=== PATIENT | female | born 1960 | race Caucasian/White ===

== ENCOUNTER 2017-02-06 10:15 | Inpatient (IN) | payer MEDICAID, OTHER ==
[2017-02-06] VITALS (8 sets, daily range): BP systolic 154–181; BP diastolic 82–110; PULSE 80–102; RESP 18–20; TEMP 98–99.2; O2SAT 90–99
[~2017-02-06] VITALS: Ht 157.5 cm; Wt 100.0 kg
[~2017-02-06 10:15] MED LIST: ADVAI250I INH; ALPR.25 PO; ASPI81 CHEW; ATRO17AE INH; CARV12.5 PO; Calcium Carbonate CHEW; FURO20 PO; KCL20 PO; LISI20 PO; LORTA5 PO; METF500 PO; MONT10TA2 PO; NEUR300C PO; PRAV40 PO; PRIL20CA PO; SPIR25 PO; Z.0.OXYGEN INH; flovent diskus INH
[2017-02-06] MEDS ORDERED: LEVOFLOXACIN 750 MG PREMIX INJ 150 ML IV ONE (10:30)
[2017-02-06] MEDS ORDERED: methylPREDNISolone SOD SUCC 125 MG/2 ML VIAL IVP ONE (10:30)
[2017-02-06] MEDS ORDERED: SODIUM CHLORIDE 0.9% FLUSH 10 ML FLUSH IVF PRN (10:30)
[2017-02-06] MEDS: RESP: ALBUTEROL 2.5 MG/IPRATROPIUM 0.5 MG NEB (SCH) INH ×4 (10:43→20:41)
[2017-02-06 10:56] LABS: AUTOMATED NEUTROPHIL # 7.3 TH/MM3 (1.8-7.7); BASOPHIL % 0.4 % (0.0-2.0); EOSINOPHIL # 0.1 TH/MM3 (0-0.4); EOSINOPHIL % 0.6 % (0.0-4.0); HEMATOCRIT 46.1 % (35.0-46.0); HEMO FLAGS DIFF FINAL; LYMPH % 19.2 % (9.0-44.0); LYMPHOCYTE # 1.9 TH/MM3 (1.0-4.8); MEAN CELL VOLUME 91.5 FL (80.0-100.0); MEAN CORPUSCULAR HEMOGLOBIN 30.8 PG (27.0-34.0); MEAN CORPUSCULAR HGB CONC 33.7 % (32.0-36.0); MONO % 6.1 % (0.0-8.0); NEUT % 73.7 % (16.0-70.0); PLATELET COUNT 218 TH/MM3 (150-450); RED BLOOD COUNT 5.04 MIL/MM3 (4.00-5.30); RED CELL DISTRIBUTION WIDTH 15.3 % (11.6-17.2); WHITE BLOOD COUNT 9.9 TH/MM3 (4.0-11.0)
--- NOTE | 2017-02-06 11:09 | RADRPT ---
EXAM DATE/TIME: 02/06/2017 11:04 [facility] COMPARISON: CHEST SINGLE AP, December 19, 2013, 14:08. INDICATIONS : Short of breath. MEDICAL HISTORY : asthma SURGICAL HISTORY : None. ENCOUNTER: Initial ACUITY: 1 day PAIN SCORE: 0/10 LOCATION: Bilateral chest FINDINGS: Cardiac silhouette is enlarged. Pulmonary vascularity is slightly indistinct. No significant new foca l pleural or parenchymal opacities. Remainder of exam is unchanged. CONCLUSION: 1. Cardiomegaly with slight positive fluid balance. Giles Palmer MD on February 06, 2017 at 11:07 Board Certified Radiologist. This report was verified electronically.
[2017-02-06 11:18] LABS: ALKALINE PHOSPHATASE 113 U/L (45-117); TOTAL BILIRUBIN ADULT 0.7 MG/DL (0.2-1.0)
[2017-02-06] MEDS ORDERED: FUROSEMIDE 40 MG/4 ML VIAL IV PUSH ONE (11:30)
[2017-02-06 11:45] LABS: ALT (GPT) 40 U/L (10-53); ANION GAP 8 MEQ/L (5-15); AST (GOT) 28 U/L (15-37); BICARBONATE 25.7 MEQ/L (21.0-32.0); BLOOD UREA NITROGEN 19 MG/DL (7-18); CHLORIDE 103 MEQ/L (98-107); GLOMERULAR FILTRATION RATE 74 ML/MIN (>89); POTASSIUM 4.5 MEQ/L (3.5-5.1); SODIUM (NA) 137 MEQ/L (136-145)
--- NOTE | 2017-02-06 11:47 | PD ---
HPI Chief Complaint: Respiratory Distress Time Seen by Provider: 10:25 Travel History International Travel<30 days: No Contact w/Intl Traveler<30days: No Traveled to known affect area: No History of Present Illness HPI This is a 56-year-old female who has a history of COPD and congestive heart failure who presents to the emergency department with 1 week of increasing shortness of breath, orthopnea, productive cough with green and yellow sputum, and chest tightness that worsens when she lays flat and improved when she sits up. She says her chest tightness is intermittent and moderate severity. She's been using her bronchodilators at home but it's not helping. PFSH Past Medical History Arthritis: Yes Asthma: Yes Blood Disorders: No Anxiety: Yes Depression: No Heart Rhythm Problems: No Cancer: No Cardiac Catheterization: No Cardiovascular Problems: Yes High Cholesterol: Yes Chemotherapy: No Chest Pain: Yes Congestive Heart Failure: Yes (EF 20%) COPD: Yes Diabetes: Yes (TYPE 2 ) Patient Takes Glucophage: Yes (METFORMIN ) Diminished Hearing: No Endocrine: No Gastrointestinal Disorders: Yes (GERD) GERD: Yes Genitourinary: No Headaches: Yes Hypertension: Yes Immune Disorder: No Musculoskeletal: Yes Neurologic: Yes (MIGRAINES, SEIZURES) Psychiatric: Yes (BIPOLAR) Reproductive: No Respiratory: Yes Immunizations Current: No Migraines: Yes Radiation Therapy: No Seizures: Yes Thyroid Disease: No ?: Not Menopausal: Yes : 2 Para: 2 Tubal Ligation: Yes (1989) Past Surgical History Section: Yes Coronary Artery Bypass Graft: No Gynecologic Surgery: Yes (C SECTION X 2) Other Surgery: Yes (2 C-SECTIONS, 2 ON LEFT ANKLE) Family History Family Myocardial Infarction: Yes (mom @ 51, dad @62, sister [place] @42) Social History Alcohol Use: Yes (OCC) Tobacco Use: Yes (05/30 PPD) Substance Use: Yes (MARAJUIANA ) Allergies-Medications (Allergen,Severity, Reaction): Coded Allergies: azithromycin (Unverified Allergy, Severe, RASH, 01/11/17) divalproex sodium (Unverified Allergy, Severe, SWELLS UP, 01/11/17) *MDRO Multi-Drug Resistant Organism (Unverified Adverse Reaction, Unknown , 09/01/14) Reported Meds & Prescriptions Reported Meds & Active Scripts Active Oxygen (O2) (Miscellaneous Medication) Inha 2 L INH CONTINUOUS 99 Days Lasix 20 Mg Tab (Furosemide) 20 Mg Tab 40 Mg PO DAILY Atrovent Hfa (Ipratropium [place]) 17 Mcg Aer 2 Puff INH Q8H PRN 30 Days 17 MCG/PUFF Aldactone 25 mg (Spironolactone) 25 Mg Tab 25 Mg PO DAILY Kcl 20 Meq Tab (Potassium Chloride) 20 Meq Tabcr 20 Meq PO DAILY Hydrocodone/Acetaminophen 5 mg/325 mg 1 Tab Tab 1 Tab PO BID PRN Advair Diskus 250/50 (Salmeterol Xinafoate/Fluticasone) 14 Puff Inhp 1 Puff INH Q12 30 Days Coreg 12.5 mg (Carvedilol) 12.5 Mg Tab 12.5 Mg PO BID Aspirin Low Strength (Aspirin) 81 Mg Chew 81 Mg CHEW DAILY Xanax 0.25 Mg (Alprazolam) Alprazolam 0.25 mg Tab 1 Tab PO BID Glucophage 500 mg (Metformin HCl) 500 Mg Tab 500 Mg PO DAILY 30 Days Pravastatin Sodium 40 Mg Tab 40 Mg PO HS Prinivil 20 mg (Lisinopril) 20 Mg Tab 40 Mg PO DAILY Singulair (Montelukast Sodium) 10 Mg Tab 10 Mg PO HS 30 Days Neurontin (Gabapentin) 300 Mg Cap 800 Mg PO TID 30 Days [Calcium Carbonate] 500 MG Chew 500 Mg CHEW Q4H PRN Reported Prilosec 20 mg (Omeprazole) 20 Mg Cap 20 Mg PO DAILY [flovent diskus] 250 Mcg INH DAILY Review of Systems Except as stated in HPI: all other systems reviewed are Neg Physical Exam Narrative GENERAL:Well appearing, no acute distress SKIN: Focused skin assessment warm and dry. HEAD: Atraumatic. Normocephalic. EYES: Pupils equal and round. No injection or drainage. ENT: Moist mucous membranes NECK: Trachea midline. CARDIOVASCULAR: Diffuse mild expiratory wheezing, no accessory muscle use, speaking in full sentences RESPIRATORY: Clear to auscultation. Breath sounds equal bilaterally. GASTROINTESTINAL: Abdomen soft, non-tender, nondistended. MUSCULOSKELETAL: No obvious deformities. NEUROLOGICAL: Awake and alert. No obvious cranial nerve deficits. Moving all extremities. PSYCHIATRIC: Appropriate mood and affect; insight and judgment normal. Data Data Last Documented VS Vital Signs Date Time Temp Pulse Resp B/P (MAP) Pulse Ox O2 Delivery O2 Flow Rate FiO2 02/06/17 10:44 95 Nasal Cannula 3.00 02/06/17 10:31 99.2 88 18 181/107 (131) Orders Orders Complete Blood Count With Diff (02/06/17 10:25) Comprehensive Metabolic Panel (02/06/17 10:25) B-Type Natriuretic Peptide (02/06/17 10:25) Troponin I (02/06/17 10:25) Iv Access Insert/Monitor (02/06/17 10:25) Ecg Monitoring (02/06/17 10:25) Oximetry (02/06/17 10:25) Oxygen Administration (02/06/17 10:25) Chest, Single Ap (02/06/17 10:25) Sodium Chloride 0.9% Flush (Ns Flush) (02/06/17 10:30) Methylprednisolone So Succ Inj (Solumedr (02/06/17 10:30) Albuterol-Ipratropium Neb (Duoneb Neb) (02/06/17 10:30) Levofloxacin 750 Mg Premix Inj (Levaquin (02/06/17 10:30) Furosemide Inj (Lasix Inj) (02/06/17 11:30) Labs Laboratory Tests Test 02/06/17 10:35 White Blood Count 9.9 TH/MM3 Red Blood Count 5.04 MIL/MM3 Hemoglobin 15.5 GM/DL Hematocrit 46.1 % Mean Corpuscular Volume 91.5 FL Mean Corpuscular Hemoglobin 30.8 PG Mean Corpuscular Hemoglobin Concent 33.7 % Red Cell Distribution Width 15.3 % Platelet Count 218 TH/MM3 Mean Platelet Volume 8.9 FL Neutrophils (%) (Auto) 73.7 % Lymphocytes (%) (Auto) 19.2 % Monocytes (%) (Auto) 6.1 % Eosinophils (%) (Auto) 0.6 % Basophils (%) (Auto) 0.4 % Neutrophils # (Auto) 7.3 TH/MM3 Lymphocytes # (Auto) 1.9 TH/MM3 Monocytes # (Auto) 0.6 TH/MM3 Eosinophils # (Auto) 0.1 TH/MM3 Basophils # (Auto) 0.0 TH/MM3 CBC Comment DIFF FINAL Differential Comment Total Protein 6.6 GM/DL Alkaline Phosphatase 113 U/L Total Bilirubin 0.7 MG/DL Troponin I 0.07 NG/ML B-Type Natriuretic Peptide 1034 PG/ML MDM Medical Decision Making Medical Screen Exam Complete: Yes Emergency Medical Condition: Yes Interpretation(s) Temperature is 99.2, 90% on room air No leukocytosis BNP is 1034 improved from prior Troponin is 0.07 which is newly elevated from prior Differential Diagnosis Pneumonia, congestive heart failure, COPD exacerbation Narrative Course This is a 56-year-old female who presents to the emergency department with shortness of breath it's been going on for 1 week. Her symptoms are more consistent with congestive heart failure and she's suffering from severe orthopnea and has chest discomfort. EKG is nonischemic. Labs are obtained which demonstrate an elevated BNP slightly improved from prior but a newly elevated troponin of 0.07. Given her active chest pain and some pulmonary congestion on chest x-ray and her hypoxia 90% on room air I think it's reasonable to observe her overnight for diuresis and serial troponins. Diagnosis Primary Impression: Acute exacerbation of congestive heart failure Qualified Codes: I50.9 - Heart failure, unspecified Admitting Information Admitting Physician Requests: Observation Lydia Ott MD Feb 06, 2017 11:47
[2017-02-06] MEDS ORDERED: POTA-163 PO (12:29)
[2017-02-06] MEDS ORDERED: PRIL20TA2 PO (12:29)
[2017-02-06] MEDS ORDERED: GABA800T PO (12:29)
[2017-02-06] MEDS ORDERED: CARV12.52 PO (12:29)
[2017-02-06] MEDS ORDERED: METF500T PO (12:29)
[2017-02-06] MEDS ORDERED: MONT10TA2 PO (12:29)
[2017-02-06] MEDS ORDERED: FURO1TAB60 PO (12:29)
[2017-02-06] MEDS ORDERED: IPRA17I INH (12:29)
[2017-02-06] MEDS ORDERED: ASPI81CH CHEW (12:29)
[2017-02-06] MEDS ORDERED: LISI40TA PO (12:29)
[2017-02-06] MEDS ORDERED: PRAV40TA2 PO (12:29)
[2017-02-06] MEDS ORDERED: ALPR.25 PO (12:29)
[2017-02-06] MEDS ORDERED: ADVA250A INH (12:29)
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
[2017-02-06] MEDS ORDERED: SODIUM CHLORIDE 0.9% FLUSH 10 ML FLUSH IV FLUSH PRN (13:30)
[2017-02-06] MEDS ORDERED: MAGNESIUM HYDROXIDE SUSP 30 ML CUP PO PRN (13:30)
[2017-02-06] MEDS ORDERED: SENNOSIDES 8.6 MG TAB PO PRN (13:30)
[2017-02-06] MEDS ORDERED: NALOXONE HCL 0.4 MG/ML AMP IV PRN (13:30)
[2017-02-06] MEDS ORDERED: LACTULOSE SYRUP 20 GM/30 ML CUP PO PRN (13:30)
[2017-02-06] MEDS ORDERED: ONDANSETRON HCL 4 MG/2 ML VIAL IVP PRN (13:30)
[2017-02-06] MEDS ORDERED: ACETAMINOPHEN 325 MG TAB PO PRN ×2 (13:30→14:45)
[2017-02-06] MEDS ORDERED: BISACODYL 10 MG SUPP RECTAL PRN (13:30)
[2017-02-06] MEDS ORDERED: GLUCAGON 1 MG/ML VIAL OTHER PRN (13:45)
[2017-02-06] MEDS ORDERED: RESP: ALBUTEROL 2.5 MG/3 ML NEB (PRN) INH (13:45)
[2017-02-06] MEDS ORDERED: DEXTROSE 50% IN WATER 50 ML VIAL(D50) IV PRN (13:45)
[2017-02-06] MEDS ORDERED: ALPRAZolam 0.25 MG TAB PO PRN (14:00)
[2017-02-06] MEDS ORDERED: cloNIDine HCL 0.1 MG TAB PO PRN (14:00)
[2017-02-06] MEDS ORDERED: ENALAPRILAT 1.25 MG/ML VIAL IV PUSH PRN (14:00)
[2017-02-06] MEDS: NICOTINE 21 MG/24 HR PATCH TD SCH (14:42)
[2017-02-06] MEDS ORDERED: ACETAMINOPHEN/HYDROcodone 325 MG/5 MG TAB PO PRN (14:45)
[2017-02-06] MEDS: INSULIN ASPART SUPPLEMENTAL SCALE SQ SCH ×2 (16:50→21:24)
[2017-02-06] MEDS ORDERED: FUROSEMIDE 20 MG/2 ML VIAL IV PUSH ONE (17:00)
[2017-02-06] MEDS ORDERED: GABAPENTIN 400 MG CAP PO SCH (18:00)
[2017-02-06] MEDS: REMOVE OLD NICODERM (NICOTINE) PATCH T-DERMAL SCH (21:00)
[2017-02-06] MEDS: DOCUSATE SODIUM 50 MG/SENNA 8.6 MG TAB PO SCH (21:25)
[2017-02-06] MEDS: SODIUM CHLORIDE 0.9% FLUSH 10 ML FLUSH IV FLUSH SCH (21:25)
[2017-02-06] MEDS: ENOXAPARIN SODIUM 40 MG/0.4 ML SYRINGE SQ SCH (21:25)
[2017-02-06 23:17] LABS: BICARBONATE 29.1 MEQ/L (21.0-32.0); POTASSIUM 3.9 MEQ/L (3.5-5.1)
[2017-02-07] VITALS (13 sets, daily range): BP systolic 126–178; BP diastolic 64–96; PULSE 74–92; RESP 18–24; TEMP 98.1–98.6; O2SAT 85–95
[2017-02-07] MEDS ORDERED: cloNIDine HCL 0.2 MG TAB PO PRN (02:00)
[2017-02-07] MEDS: RESP: ALBUTEROL 2.5 MG/IPRATROPIUM 0.5 MG NEB (SCH) INH ×4 (02:50→20:34)
--- NOTE | 2017-02-07 05:37 | RADRPT ---
EXAM DATE/TIME: 02/07/2017 05:09 [facility] COMPARISON: CHEST SINGLE AP, February 06, 2017, 11:04. INDICATIONS : Short of breath. MEDICAL HISTORY : Asthma. SURGICAL HISTORY : None. ENCOUNTER: Subsequent ACUITY: 2 days PAIN SCORE: 0/10 LOCATION: Bilateral chest FINDINGS: A single view of the chest demonstrates cardiomegaly. Linear atelectasis scarring left lung. Calcifie d granuloma left base. Right lung clear. No pneumothorax. CONCLUSION: 1. Cardiomegaly. Calcified granuloma left base. Linear atelectasis or scarring left hilar region. Galileo Pagan MD on February 07, 2017 at 5:35 Board Certified Radiologist. This report was verified electronically.
[2017-02-07] MEDS: INSULIN ASPART SUPPLEMENTAL SCALE SQ SCH ×4 (06:44→22:58)
--- NOTE | 2017-02-07 08:08 | HHI.FPPN ---
Subjective Remarks Sasha Lee is a 56yo lady with h/o systolic CHF, asthma, and bipolar disorder admitted for SOB and chest discomfort, worsening x 1 week. Also associated with lower extremity edema x 3 days. 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 For further details, please see resident H&P. This morning, patient reports that her breathing has improved. She continues to require Oxygen supplementation by nasal cannula, and has a desaturation to 87% on room air, which improved to 90-91% with 2lpm. ROS: + SOB, improving. Chest pain has resolved. No nausea/vomiting. + edema of lower extremities, although improved. No fevers. All other systems reviewed are negative. PMH/PSxH/SocHx/FamHx: Per resident H&P. Significant for: CHF with 08/2014 echo EF 10-15%; asthma/COPD, type II DM, HTN, dyslipidemia, bipolar disorder, seizure disorder. x 2; 2 left ankle surgeries. Mother with sudden cardiac at 50yo; sister with sudden cardiac at 42yo. Smokes 1PPD tobacco. Rare alcohol. Last cocaine use 2 days ago. 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 Objective Vitals Vital Signs Date Time Temp Pulse Resp B/P (MAP) Pulse Ox O2 Delivery O2 Flow Rate FiO2 02/07/17 07:57 81 02/07/17 07:51 98.1 84 18 178/75 (109) 93 02/07/17 03:22 98.1 92 19 178/80 (112) 93 02/06/17 23:47 98.0 82 19 154/82 (106) 93 02/06/17 20:43 Nasal Cannula 2.00 02/06/17 19:24 98.0 87 18 179/97 (124) 93 02/06/17 18:28 102 02/06/17 15:47 02/06/17 15:20 90 18 164/84 (110) 99 Room Air 02/06/17 12:00 80 20 178/110 (132) 97 Room Air 02/06/17 10:44 95 Nasal Cannula 3.00 02/06/17 10:32 92 Nasal Cannula 2.00 02/06/17 10:31 99.2 88 18 181/107 (131) 90 Room Air 02/06/17 10:28 18 18 Room Air 02/06/17 10:28 90 Room Air 02/06/17 10:19 99.2 18 I/O 02/06/17 02/06/17 02/06/17 02/07/17 02/07/17 02/07/17 07:00 15:00 23:00 07:00 15:00 23:00 Intake Total 150 ml Balance 150 ml Intake IV Total 150 ml Result Diagram: 02/06/17 1035 02/06/17 2229 Objective Remarks GENERAL: in NAD, no resp distress, nontoxic. Talks in complete sentences. Cough throughout exam/interview HEENT: NCAT, EOMI, no scleral icterus, no conjunctival injection. MMM. Nasal cannula in place. NECK: Supple, no carotid bruits. No meningeal signs. No obvious JVD. CV: RRR, S1 S2. No murmurs. CHEST/PULM: CTAB, no crackles, no wheezes. Prolonged exp phase. ABD/GI: +BS, soft, nontender, nondistended. EXT: 2+ DP pulses. Trace pitting edema to mid coello. No calf tenderness. : No CVAT. NEURO: Awake, alert. Normal muscle tone. Grossly nonfocal. SKIN: No rashes, no jaundice. PSYCH: Mood and affect are appropriate. Speech fluent. Does not appear to respond to internal stimuli. A/P Assessment and Plan Mrs. Lee is a 56 yo F with PMH of asthma, CHF, bipolar disorder who presents with symptoms of shortness of breath and chest discomfort Discharge Planning Anticipate discharge in 1-2 days, once able to maintain O2 sats on room air. Attending Attestation Patient seen, examined, and discussed with resident team. The patient has been seen and examined. The chart and all resident notes have been reviewed. I agree that inpatient care is appropriate and that a two midnight stay is expected for the reasons documented in the resident history and physical. I have discussed this with the resident and certify the resident s order for inpatient admission. Problem List: (1) CHF (congestive heart failure) ICD Codes: I50.9 - Heart failure, unspecified Status: Chronic Plan: Acute on chronic systolic CHF exacerbation. Likely secondary to cocaine use and nonadherence (ran out of medication). Last Echocardiogram in EMR 08/2016: Systolic function severely reduced per visual assessment. Estimated EF 10-15 percent with diffuse hypokinesis. Parameters consistent with reversible restrictive pattern suggestive of decreased LV diastolic compliance or increased L atrial pressure. Mild mitral regurgitation. PA peak 31mmHg -Will recheck echo -Appreciate cardiology recommendations, who recommend ischemic work up as an outpatient. -Continue diuresis -s/p Lasix 40mg IV in ED -40mg IV Lasix daily -Continue Lisinopril 40mg daily -Continue Carvedilol 12.5mg daily -Monitor Is/Os. -Check lipid profile. (2) Troponin level elevated ICD Codes: R74.8 - Abnormal levels of other serum enzymes Status: Chronic Plan: Likely secondary to Chronic CHF. EKG reviewed; suggestive of LVH with nonspecific T wave changes; no change from prior EKG -s/p ASA in ED -Continue patient's home KAEL, BB -Check lipid profile. (3) Shortness of breath ICD Codes: R06.02 - Shortness of breath Status: Acute Plan: Improving. Suspect secondary to CHF exacerbation in combination with COPD exacerbation. CXR on admission suggestive of cardiomegaly with slight positive fluid balance Treat CHF exacerbation as above. COPD exacerbation treatment as follows: -Steroid therapy -s/p Solumedrol 125mg in ED -Will start Prednisone 40mg daily x5 days -Antibiotic therapy -s/p Levofloxacin 750mg in ED -Will continue Levofloxacin 750mg daily for total of 5 days -Will continue to monitor O2 sats. Pt continues to require oxygen supplementation. -Will give Albuterol, Duonebs -Will check sputum culture -Continue home medications: Singulair. On Advair, Atrovent, when necessary albuterol, and montelukast at home. Incentive spirometer, Acapella. Encouraged smoking cessation; pt in precontemplative state of change. Discussed cessation of recreational drugs and that cocaine contributes to worsening of her cardiac function. (4) COPD (chronic obstructive pulmonary disease) ICD Codes: J44.9 - Chronic obstructive pulmonary disease, unspecified Status: Chronic Plan: Management as per Shortness of Breath section above. (5) T2DM (type 2 diabetes mellitus) ICD Codes: E11.9 - Type 2 diabetes mellitus without complications Status: Chronic Plan: Impression: Patient with history of A1c 6.6 in 08/2014. Patient reports that she takes metformin 500 mg daily, suspect poor compliance -Will continue SS Novolog (low dose) and Accuchecks while inpatient -Check a1c. (6) HTN (hypertension) ICD Codes: I10 - Essential (primary) hypertension Status: Chronic Plan: Impression: Hypertensive on admission with SBP and 170s-180s. Improved overnight. -Continue lisinopril 40 mg daily -Continue Carvedilol 12.5 mg daily (7) Cocaine abuse ICD Codes: F14.10 - Cocaine abuse, uncomplicated Status: Chronic Plan: Encouraged cessation from cocaine and tobacco. Discussed how these substances contribute to her cardiac issues. (8) Acute renal failure ICD Codes: N17.9 - Acute kidney failure, unspecified Status: Acute Plan: Likely secondary to medication use with Lasix. Monitor urine output, blood work. (9) DVT PPX Status: Chronic Plan: -Lovenox 40mg daily (10) GI PPX Status: Chronic Plan: -Continue home Omeprazole (for GERD) for GI PPX Problem Qualifiers (1) CHF (congestive heart failure): Qualified Codes: I50.23 - Acute on chronic systolic (congestive) heart failure (2) COPD (chronic obstructive pulmonary disease): Qualified Codes: J41.0 - Simple chronic bronchitis (3) T2DM (type 2 diabetes mellitus): Qualified Codes: E11.9 - Type 2 diabetes mellitus without complications (4) HTN (hypertension): Qualified Codes: I10 - Essential (primary) hypertension (5) Acute renal failure: Qualified Codes: N17.0 - Acute kidney failure with tubular necrosis Abena Recinos MD Feb 07, 2017 08:08
[2017-02-07] MEDS: NICOTINE 21 MG/24 HR PATCH TD SCH (08:56)
[2017-02-07] MEDS: ASPIRIN 81 MG CHEW TAB CHEW SCH (08:57)
[2017-02-07] MEDS: PRAVASTATIN SOD 40 MG TAB PO SCH (08:57)
[2017-02-07] MEDS: LISINOPRIL 20 MG TAB PO SCH (08:57)
[2017-02-07] MEDS: MONTELUKAST SODIUM 10 MG TAB PO SCH (08:57)
[2017-02-07] MEDS: predniSONE 20 MG TAB PO SCH (08:58)
[2017-02-07] MEDS: guaiFENesin E.R. 600 MG TAB PO SCH ×2 (08:58→22:47)
[2017-02-07] MEDS: LEVOFLOXACIN 750 MG TAB PO SCH (08:59)
[2017-02-07] MEDS: PANTOPRAZOLE SOD 20 MG DELAYED RELEASE TAB PO SCH (09:00)
[2017-02-07] MEDS: CARVEDILOL 12.5 MG TAB PO SCH (09:00)
[2017-02-07] MEDS: DOCUSATE SODIUM 50 MG/SENNA 8.6 MG TAB PO SCH ×2 (09:00→22:47)
[2017-02-07] MEDS: FUROSEMIDE 40 MG/4 ML VIAL IV PUSH SCH (09:01)
[2017-02-07] MEDS: SODIUM CHLORIDE 0.9% FLUSH 10 ML FLUSH IV FLUSH SCH ×2 (09:01→22:47)
[2017-02-07] MEDS: GABAPENTIN 300 MG CAP PO SCH ×2 (09:02→22:47)
--- NOTE | 2017-02-07 09:11 | PD.CONS ---
HPI Service Cardiology physicians Consult Requested By Reason for Consult Elevated troponin, CHF Primary Care Physician Unknown History of Present Illness The patient is a 56 year old female with a cardiac history of cardiomyopathy, chronic systolic CHF, HTN, non occlusive CAD, tobacco abuse and obesity. The patient presented to the hospital for a one week history of progressively worsening SOB, orthopnea, palpitations, productive cough and chest tightness. She admits to running out of medications, as she is not able to afford them. On evaluation, she states she is feeling better. Cardiac workup reveals elevated BNP, hypoxia on room air, EKG negative for ischemic changes, troponin slightly elevated due to CHF exacerbation and renal insufficiency. Of note, toxicology screen in positive for cocaine. (Paulina Alston) Review of Systems Consitutional: COMPLAINS OF: Weight gain, DENIES: Fatigue, Fever, Chills Eyes: DENIES: Amaurosis Fugax, Change in vision HEENT: DENIES: Lightheadedness, Change in hearing Respiratory: COMPLAINS OF: Cough, Shortness of breath, Wheezing, Sputum production, DENIES: See HPI, Snoring Cardiovascular: COMPLAINS OF: Chest pain, Palpitations, Tachycardia, DENIES: See HPI, Syncope Gastrointestinal: DENIES: Nausea, Vomiting, Change in bowel habits, Reflux, Bloody stools, Melena Genitourinary: DENIES: Urinary incontinence, Difficulty voiding Integumentary: DENIES: Rash Neurologic: DENIES: Tingling or numbness, Memory problems, Poor Balance, Stroke symptoms Musculoskeletal: DENIES: Joint pain, Muscle pain, Limited range of motion, Back pain Psychiatric: DENIES: Anxiety, Depression, Sleep disturbances Hematologic: DENIES: Bruising tendencies, Bleeding tendencies Endocrine: COMPLAINS OF: Weight gain, DENIES: Weight loss, Thyroid disease ( Paulina Alston) Past Family Social History Allergies: Coded Allergies: azithromycin (Unverified Allergy, Severe, RASH, 01/11/17) divalproex sodium (Unverified Allergy, Severe, SWELLS UP, 01/11/17) *MDRO Multi-Drug Resistant Organism (Unverified Adverse Reaction, Unknown , 09/01/14) Past Medical History Cardiomyopathy Chronic systolic CHF HTN Non occlusive ASHD Obesity SOB Tobacco abuse Drug dependent, toxicology screen positive for cocaine Past Surgical History Cardiac cath 2012-% stenosis of LAD, otherwise unremarkable Cesarian section X 2 Reported Medications Reported Meds & Active Scripts Active Reported Pravastatin 40 Mg Tab 40 Mg PO DAILY Potassium Chloride ER (Potassium Chloride) 20 Meq Tab 20 Meq PO DAILY Prilosec (Omeprazole Magnesium) 20 Mg Tab 1 Tab PO DAILY Singulair (Montelukast Sodium) 10 Mg Tab 10 Mg PO DAILY Metformin (Metformin HCl) 500 Mg Tab 500 Mg PO DAILY With a meal Lisinopril 40 Mg Tab 40 Mg PO DAILY Atrovent HFA 12.9 GM Inh (Ipratropium [place]) 17 Mcg/Actuation Aer 2 Puff INH BID Gabapentin 800 Mg Tab 800 Mg PO TID Lasix (Furosemide) 40 Mg Tab 40 Mg PO DAILY Advair Diskus Inh (Fluticasone-Salmeterol Inh) 250-50 Mcg/Blist Aer 1 Puff INH BID Rinse mouth after use. Carvedilol 12.5 Mg Tab 12.5 Mg PO DAILY Xanax (Alprazolam) 0.25 Mg Tab 0.25 Mg PO DAILY PRN Aspirin 81 Mg Chew 81 Mg CHEW DAILY Active Ordered Medications Current Medications Medications (Trade) Dose Ordered Sig/Jose Route Start Time Stop Time Status Last Admin (Vasotec Inj) 1.25 mg Q8H PRN IV PUSH 02/06/17 14:00 02/06/17 13:39 (NS Flush) 2 ml UNSCH PRN IV FLUSH 02/06/17 13:30 (NS Flush) 2 ml BID IV FLUSH 02/06/17 21:00 02/06/17 21:25 (Zofran Inj) 4 mg Q6H PRN IVP 02/06/17 13:30 (Lovenox Inj) 40 mg Q24H SQ 02/06/17 21:00 02/06/17 21:25 (Narcan Inj) 0.4 mg UNSCH PRN IV 02/06/17 13:30 (Angela-Colace) 1 tab BID PO 02/06/17 21:00 02/06/17 21:25 (Milk Of Magnesia Liq) 30 ml Q12H PRN PO 02/06/17 13:30 (Senokot) 17.2 mg Q12H PRN PO 02/06/17 13:30 (Dulcolax Supp) 10 mg DAILY PRN RECTAL 02/06/17 13:30 (Lactulose Liq) 30 ml DAILY PRN PO 02/06/17 13:30 (Deltasone) 40 mg DAILY PO 02/07/17 09:00 (Levaquin) 750 mg DAILY PO 02/07/17 09:00 (Duoneb Neb) 1 ampule Q6HR NEB INH 02/06/17 16:00 02/07/17 02:50 (Albuterol Neb) 2.5 mg Q2HR NEB PRN INH 02/06/17 13:45 (Habitrol 21 Mg Patch.24 Hr) 1 patch DAILY TD 02/06/17 14:00 02/06/17 14:42 (Lasix Inj) 40 mg DAILY IV PUSH 02/07/17 09:00 (D50w (Vial) Inj) 50 ml UNSCH PRN IV 02/06/17 13:45 (Glucagon Inj) 1 mg UNSCH PRN OTHER 02/06/17 13:45 (NovoLOG SUPPLEMENTAL SCALE) 1 ACHS SLIDING SCALE SQ 02/06/17 16:00 02/07/17 06:44 (Aspirin Chew) 81 mg DAILY CHEW 02/07/17 09:00 (Xanax) 0.25 mg DAILY PRN PO 02/06/17 14:00 (Coreg) 12.5 mg DAILY PO 02/07/17 09:00 (Singulair) 10 mg DAILY PO 02/07/17 09:00 (Pravachol) 40 mg DAILY PO 02/07/17 09:00 (Prinivil) 40 mg DAILY PO 02/07/17 09:00 (Protonix) 20 mg DAILY PO 02/07/17 09:00 Miscellaneous Information 1 HS T-DERMAL 02/06/17 21:00 02/06/17 21:00 (Tylenol) 650 mg Q6H PRN PO 02/06/17 14:45 (Foster 5-325 Mg) 1 tab Q6H PRN PO 02/06/17 14:45 (Catapres) 0.2 mg Q6H PRN PO 02/07/17 02:00 (Neurontin) 600 mg Q12H PO 02/07/17 09:00 (Mucinex Er) 600 mg BID PO 02/07/17 09:00 Family History Sister [place] 42 Social History Tobacco use Toxicology screen + cocaine (Paulina Alston) Physical Exam Vital Signs Vital Signs Date Time Temp Pulse Resp B/P (MAP) Pulse Ox O2 Delivery O2 Flow Rate FiO2 02/07/17 07:57 81 02/07/17 07:51 98.1 84 18 178/75 (109) 93 02/07/17 03:22 98.1 92 19 178/80 (112) 93 02/06/17 23:47 98.0 82 19 154/82 (106) 93 02/06/17 20:43 Nasal Cannula 2.00 02/06/17 19:24 98.0 87 18 179/97 (124) 93 02/06/17 18:28 102 02/06/17 15:47 02/06/17 15:20 90 18 164/84 (110) 99 Room Air 02/06/17 12:00 80 20 178/110 (132) 97 Room Air 02/06/17 10:44 95 Nasal Cannula 3.00 02/06/17 10:32 92 Nasal Cannula 2.00 02/06/17 10:31 99.2 88 18 181/107 (131) 90 Room Air 02/06/17 10:28 18 18 Room Air 02/06/17 10:28 90 Room Air 02/06/17 10:19 99.2 18 Physical Exam GENERAL: Obese, teary, middle age female SKIN: Warm and dry. HEAD: Atraumatic. Normocephalic. EYES: Pupils equal and round. No scleral icterus. No injection or drainage. ENT: No nasal bleeding or discharge. NECK: Trachea midline. Cardiovascular: Regular rate and rhythm. RESPIRATORY: No accessory muscle use. Bilateral wheezing, no rales or rhonchi, nasal cannula GASTROINTESTINAL: Abdomen soft, non-tender, nondistended MUSCULOSKELETAL: Extremities without clubbing, cyanosis. pretibial edema NEUROLOGICAL: Awake and alert. No obvious cranial nerve deficits. Motor grossly within normal limits. Five out of 5 muscle strength in the arms and legs. Normal speech. PSYCHIATRIC: Appropriate mood and affect; insight and judgment normal. Laboratory Laboratory Tests Test 02/06/17 10:35 02/06/17 15:14 02/06/17 16:34 02/06/17 22:29 White Blood Count 9.9 Red Blood Count 5.04 Hemoglobin 15.5 Hematocrit 46.1 Mean Corpuscular Volume 91.5 Mean Corpuscular Hemoglobin 30.8 Mean Corpuscular Hemoglobin Concent 33.7 Red Cell Distribution Width 15.3 Platelet Count 218 Mean Platelet Volume 8.9 Neutrophils (%) (Auto) 73.7 Lymphocytes (%) (Auto) 19.2 Monocytes (%) (Auto) 6.1 Eosinophils (%) (Auto) 0.6 Basophils (%) (Auto) 0.4 Neutrophils # (Auto) 7.3 Lymphocytes # (Auto) 1.9 Monocytes # (Auto) 0.6 Eosinophils # (Auto) 0.1 Basophils # (Auto) 0.0 CBC Comment DIFF FINAL Differential Comment Blood Urea Nitrogen 19 26 Creatinine 0.80 1.29 Random Glucose 188 249 Total Protein 6.6 Albumin 3.1 Calcium Level 8.9 9.0 Alkaline Phosphatase 113 Aspartate Amino Transf (AST/SGOT) 28 Alanine Aminotransferase (ALT/SGPT) 40 Total Bilirubin 0.7 Sodium Level 137 136 Potassium Level 4.5 3.9 Chloride Level 103 98 Carbon Dioxide Level 25.7 29.1 Anion Gap 8 9 Estimat Glomerular Filtration Rate 74 43 Troponin I 0.07 0.04 0.03 B-Type Natriuretic Peptide 1034 Urine Opiates Screen NEG Urine Barbiturates Screen NEG Urine Amphetamines Screen NEG Urine Benzodiazepines Screen NEG Urine Cocaine Screen POS Urine Cannabinoids Screen NEG Total Creatine Kinase 59 55 Date/Time Source Procedure Growth Status 02/06/17 15:14 Sputum Expectorated Sputum Gram Stain Pending Received 02/06/17 15:14 Sputum Expectorated Sputum Sputum Culture Pending Received (Paulina Alston) Result Diagram: 02/06/17 1035 02/06/17 2229 Imaging Last 72 hours Impressions Chest X-Ray 02/07/17 0600 Signed Impressions: Service Date/Time: Tuesday, February 07, 2017 05:09 - CONCLUSION: 1. Cardiomegaly. Calcified granuloma left base. Linear atelectasis or scarring left hilar region. Galileo Pagan MD Chest X-Ray 02/06/17 1025 Signed Impressions: Service Date/Time: Monday, February 06, 2017 11:04 - CONCLUSION: 1. Cardiomegaly with slight positive fluid balance. Giles Palmer MD (Paulina Alston) Assessment and Plan Assessment and Plan Respiratory insufficiency due to acute on chronic systolic CHF exacerbation and suspect underlying COPD Slightly positive troponin due to CHF exacerbation HTN NIIDM Tobacco and drug dependence PLAN: Continue IV diuresis. Transition to PO soon. Resume home medications The patient will need ischemic work up outpatient Patient seen and evaluated by Dr Fisher who completed face to face encounter, did a physical exam and participated in evaluation and management. (Paulina Alston) Assessment and Plan The exam, history, and the medical decision-making described in the above note were completed with the assistance of the mid-level provider. I reviewed and agree with the findings presented. I attest that I had a [id number] encounter with the patient on the same day, and personally performed and documented my assessment and findings in the medical record. Poor candidate for aggressive procedures cocaine use , now in CHF, will treat chf and try to improve EF if pt can try to be more compliant (Lazarus Fisher MD) Paulina Alston Feb 07, 2017 09:11 Lazarus Fisher MD Feb 07, 2017 13:46
[2017-02-07 11:52] LABS: AUTOMATED NEUTROPHIL # 6.7 TH/MM3 (1.8-7.7); BASOPHIL % 0.2 % (0.0-2.0); EOSINOPHIL % 0.2 % (0.0-4.0); HEMATOCRIT 47.2 % (35.0-46.0); HEMO FLAGS DIFF FINAL; LYMPH % 17.7 % (9.0-44.0); LYMPHOCYTE # 1.6 TH/MM3 (1.0-4.8); MEAN CELL VOLUME 92.6 FL (80.0-100.0); MEAN CORPUSCULAR HEMOGLOBIN 30.5 PG (27.0-34.0); MEAN CORPUSCULAR HGB CONC 32.9 % (32.0-36.0); MONO % 8.1 % (0.0-8.0); NEUT % 73.8 % (16.0-70.0); PLATELET COUNT 242 TH/MM3 (150-450); RED CELL DISTRIBUTION WIDTH 14.5 % (11.6-17.2); WHITE BLOOD COUNT 9.1 TH/MM3 (4.0-11.0)
[2017-02-07 12:16] LABS: ANION GAP 7 MEQ/L (5-15); AST (GOT) 21 U/L (15-37); BICARBONATE 34.9 MEQ/L (21.0-32.0); BLOOD UREA NITROGEN 24 MG/DL (7-18); CHLORIDE 95 MEQ/L (98-107); GLOMERULAR FILTRATION RATE 58 ML/MIN (>89); POTASSIUM 3.3 MEQ/L (3.5-5.1); SODIUM (NA) 137 MEQ/L (136-145)
[2017-02-07 12:17] LABS: ALT (GPT) 37 U/L (10-53)
[2017-02-07 12:19] LABS: ALKALINE PHOSPHATASE 105 U/L (45-117); TOTAL BILIRUBIN ADULT 0.5 MG/DL (0.2-1.0)
[2017-02-07 13:05] LABS: HDL CHOLESTEROL 62.1 MG/DL (40.0-60.0); LDL CHOLESTEROL 139 MG/DL (0-99)
--- NOTE | 2017-02-07 13:57 | EKG ---
Date Performed: 02/06/2017 Time Performed: 10:32:17 PTAGE: 56 years EKG: Sinus rhythm RIGHT ATRIAL ENLARGEMENT LEFT ATRIAL ENLARGEMENT POSSIBLE LEFT VENTRICULAR HYPERTROPHY Compared to p rior tracing no significant change ABNORMAL ECG PREVIOUS TRACING : 09/01/2014 17.44 DOCTOR: Ana Henriquez Interpretating Date/Time 02/07/2017 13:54:14
--- NOTE | 2017-02-07 13:58 | EKG ---
Date Performed: 02/06/2017 Time Performed: 16:42:13 PTAGE: 56 years EKG: Sinus rhythm POSSIBLE RIGHT ATRIAL ENLARGEMENT BORDERLINE ECG Compared to prior tracing no significant change PREVIOUS TRACING : 02/06/2017 10.32 DOCTOR: Ana Henriquez Interpretating Date/Time 02/07/2017 13:54:37
--- NOTE | 2017-02-07 13:58 | EKG ---
Date Performed: 02/06/2017 Time Performed: 20:32:27 PTAGE: 56 years EKG: Sinus rhythm POSSIBLE RIGHT ATRIAL ENLARGEMENT LEFT ATRIAL ENLARGEMENT NONSPECIFIC T-WAVE ABNORMALITY ABNORMAL EC G Compared to prior tracing no significant change PREVIOUS TRACING : 02/06/2017 16.42 DOCTOR: Ana Henriquez Interpretating Date/Time 02/07/2017 13:54:46
[2017-02-07 16:04] LABS: HEMOGLOBIN A1a 1.5 %; HEMOGLOBIN A1b 2.4 %; HEMOGLOBIN Ao 80.8 %; HEMOGLOBIN LA1C 2.7 %; HEMOGLOBIN P3 4.8 %
--- NOTE | 2017-02-07 16:18 | ECHRPT ---
Indication: Heart failure, unspecified CONCLUSIONS Normal left ventricular size. Wall thickness is measured at the upper limits of normal. The left ventricular systolic function is low normal with an estimated ejection fraction of 50%. No definite regional wall motion abnormalities are present. Mild mitral valve regurgitation. There is trace tricuspid valve regurgitation. The estimated pulmonary arterial pressure is 23 mmHg. BP: 178 / 80 HR: 92 Rhythm: Sinus MEASUREMENTS (Male / Female) Normal Values Technical Quality:Good 2D ECHO LV Diastolic Diameter PLAX 5.1 cm 4.2 - 5.9 / 3.9 - 5.3 cm LV Systolic Diameter PLAX 4.7 cm IVS Diastolic Thickness 1.4 cm 0.6 - 1.0 / 0.6 - 0.9 cm LVPW Diastolic Thickness 1.4 cm 0.6 - 1.0 / 0.6 - 0.9 cm LV Relative Wall Thickness 0.6 LVOT Diameter 2.1 cm M-MODE Aortic Root Diameter MM 2.4 cm LA Systolic Diameter MM 4.1 cm LA Ao Ratio MM 1.7 AV Cusp Separation MM 1.9 cm DOPPLER AV Peak Velocity 143.0 cm/s AV Peak Gradient 8.2 mmHg LVOT Peak Velocity 74.0 cm/s LVOT Peak Gradient 2.2 mmHg AV Area Cont Eq pk 1.8 cm MR Peak Velocity 386.0 cm/s MR Peak Gradient 59.6 mmHg Mitral E Point Velocity 103.0 cm/s Mitral A Point Velocity 80.9 cm/s Mitral E to A Ratio 1.3 LV E' Lateral Velocity 4.1 cm/s Mitral E to LV E' Lateral Ratio 25.2 LV E' Septal Velocity 3.4 cm/s Mitral E to LV E' Septal Ratio 30.2 TR Peak Velocity 214.0 cm/s TR Peak Gradient 18.3 mmHg PV Peak Velocity 122.0 cm/s PV Peak Gradient 6.0 mmHg FINDINGS LEFT VENTRICLE Normal left ventricular size. Wall thickness is measured at the upper limits of normal. The left ventricular systolic function is low normal with an estimated ejection fraction of 50%. No regional wall motion abnormalities are present. RIGHT VENTRICLE Normal right ventricular size and systolic function. LEFT ATRIUM The left atrial size is normal. RIGHT ATRIUM The right atrial size is normal. ATRIAL SEPTUM Normal atrial septal thickness without atrial level shunting by limited color doppler interrogation. AORTA The aortic root and proximal ascending aorta are normal in size on limited imaging. MITRAL VALVE Mild mitral valve regurgitation. AORTIC VALVE Diffuse calcification of the aortic valve. TRICUSPID VALVE There is trace tricuspid valve regurgitation. The estimated pulmonary arterial pressure is 23 mmHg. PULMONARY VALVE The pulmonary valve is not well visualized. VESSELS The inferior vena cava is normal in size. PERICARDIUM No pericardial effusion. Abhinav Diaz MD (Electronically Signed) Final Date:07 February 2017 16:17
[2017-02-07] MEDS: REMOVE OLD NICODERM (NICOTINE) PATCH T-DERMAL SCH (21:00)
[2017-02-07] MEDS: ENOXAPARIN SODIUM 40 MG/0.4 ML SYRINGE SQ SCH (22:46)
[2017-02-08] VITALS (15 sets, daily range): BP systolic 120–180; BP diastolic 61–99; PULSE 72–101; RESP 18–22; TEMP 97.5–99; O2SAT 93–99
[2017-02-08] MEDS: RESP: ALBUTEROL 2.5 MG/IPRATROPIUM 0.5 MG NEB (SCH) INH ×4 (03:22→21:21)
[2017-02-08] MEDS: INSULIN ASPART SUPPLEMENTAL SCALE SQ SCH ×4 (08:00→21:32)
[2017-02-08] MEDS: MONTELUKAST SODIUM 10 MG TAB PO SCH (08:07)
[2017-02-08] MEDS: CARVEDILOL 12.5 MG TAB PO SCH ×2 (08:07→21:29)
[2017-02-08] MEDS: ASPIRIN 81 MG CHEW TAB CHEW SCH (08:07)
[2017-02-08] MEDS: GABAPENTIN 300 MG CAP PO SCH ×2 (08:08→21:31)
[2017-02-08] MEDS: PRAVASTATIN SOD 40 MG TAB PO SCH (08:08)
[2017-02-08] MEDS: LEVOFLOXACIN 750 MG TAB PO SCH (08:08)
[2017-02-08] MEDS: guaiFENesin E.R. 600 MG TAB PO SCH ×2 (08:08→21:30)
[2017-02-08] MEDS: PANTOPRAZOLE SOD 20 MG DELAYED RELEASE TAB PO SCH (08:08)
[2017-02-08] MEDS: LISINOPRIL 20 MG TAB PO SCH (08:08)
[2017-02-08] MEDS: SODIUM CHLORIDE 0.9% FLUSH 10 ML FLUSH IV FLUSH SCH ×2 (08:09→21:00)
[2017-02-08] MEDS: FUROSEMIDE 40 MG/4 ML VIAL IV PUSH SCH (08:09)
[2017-02-08] MEDS: predniSONE 20 MG TAB PO SCH (08:10)
[2017-02-08] MEDS: NICOTINE 21 MG/24 HR PATCH TD SCH (08:10)
[2017-02-08] MEDS: DOCUSATE SODIUM 50 MG/SENNA 8.6 MG TAB PO SCH ×2 (08:12→21:31)
--- NOTE | 2017-02-08 08:29 | HHI.FPPN ---
Subjective Remarks Pt feels like a new person compared to admission. No fever or chills, eating well and had a BM this morning. She would like to go home today but understands that she would have to go with oxygen which she is not excited about. She is flying out to [place] to stay with her sister for a while. She did complain of headaches in the morning that have been going on for 2 months. Encouraged her to discuss with her PCP for further investigation and management. (Lynn Mcgraw MD R2) Objective Vitals Vital Signs Date Time Temp Pulse Resp B/P (MAP) Pulse Ox O2 Delivery O2 Flow Rate FiO2 02/08/17 08:26 97 2.00 02/08/17 07:46 85 02/08/17 07:26 98.9 87 20 176/99 (124) 97 02/08/17 04:19 101 02/08/17 03:17 98.1 82 18 166/80 (108) 93 02/08/17 01:33 98.1 84 18 164/82 (109) 94 02/08/17 00:12 89 02/07/17 22:33 165/78 (107) 02/07/17 20:36 94 Nasal Cannula 2.00 02/07/17 20:02 92 02/07/17 19:46 98.2 83 18 170/83 (112) 92 02/07/17 18:14 86 02/07/17 15:57 98.4 83 20 139/96 (110) 95 02/07/17 12:49 77 02/07/17 11:41 91 02/07/17 11:29 98.6 74 24 126/64 (84) 85 02/07/17 09:44 94 Nasal Cannula 2.00 I/O 02/07/17 02/07/17 02/07/17 02/08/17 02/08/17 02/08/17 07:00 15:00 23:00 07:00 15:00 23:00 Intake Total 480 ml Balance 480 ml Intake Oral 480 ml (Lynn Mcgraw MD R2) Result Diagram: 02/07/17 1037 02/07/17 1037 Objective Remarks GENERAL: in NAD, no resp distress, nontoxic. Talks in complete sentences. Leopoldo pleasant HEENT: NCAT, EOMI, no scleral icterus, no conjunctival injection. MMM. Nasal cannula in place, on 2L. NECK: Supple, no meningeal signs. No obvious JVD. CV: RRR, S1 S2. No murmurs. CHEST/PULM: CTAB, no crackles, no wheezes. Prolonged exp phase. ABD/GI: +BS, soft, nontender, nondistended. EXT: 2+ DP pulses. Trace pitting edema to mid coello. No calf tenderness. : No CVAT. NEURO: Awake, alert. Normal muscle tone. Grossly nonfocal. SKIN: No rashes, no jaundice. PSYCH: Mood and affect are appropriate. Speech fluent. Does not appear to respond to internal stimuli. (Lynn Mgcraw MD R2) A/P Assessment and Plan Mrs. Lee is a 56 yo F with PMH of asthma, CHF, bipolar disorder who presented with symptoms of shortness of breath and chest discomfort that have mostly resolved on breathing treatments, steroids, lasix, and levaquin. However, based on the results of her respiratory oxygen walk test, she would need to be discharged home on oxygen. Discharge Planning Anticipate discharge in 1-2 days, once able to procure an oxygen tank. Patient needs home oxygen based on her walk test (Lynn Mcgraw MD R2) Attending Attestation Patient seen and examined, discussed with Dr. Mcgraw. I agree with assessment and management as documented and discussed with me. Pt requests discharge today. She feels breathing is improved. She continues to require oxygen supplementation. Appreciate case management, who is assisting in this matter. (Abena Recinos MD) Problem List: (1) CHF (congestive heart failure) ICD Codes: I50.9 - Heart failure, unspecified Status: Chronic Plan: Acute on chronic systolic CHF exacerbation in combination with COPD exacerbation. Likely secondary to cocaine use and nonadherence (ran out of medication). -Repeat ECHO on 02/07/17 shows low-normal systolic function with EF of 50% with no regional wall abnormalities -Appreciate cardiology recommendations, who recommend ischemic work up as an outpatient. Previous Echocardiogram in EMR 08/2016: Systolic function severely reduced per visual assessment. Estimated EF 10-15 percent with diffuse hypokinesis. Parameters consistent with reversible restrictive pattern suggestive of decreased LV diastolic compliance or increased L atrial pressure. Mild mitral regurgitation. PA peak 31mmHg -Continue diuresis 40mg PO Lasix daily -Continue Lisinopril 40mg PO daily -Continue Carvedilol 25 mg PO daily -Continue Amlodipine 5mg PO at night -Monitor Is/Os -Continue Prednisone 40mg PO daily x5 day - (day 2) -Lipid profile shows triglycerides 292, total cholesterol 259, LDL 139, HDL 62.1 ASCVD 10-year risk score of 12.1 with lifetime risk of 50% - recommend moderate to high-intensity statin Will switch to Atorvastatin 40mg PO daily For COPD Exacerbation -Continue Levofloxacin 750mg PO daily for total of 5 days - (day 2) -Continue Albuterol, Duonebs -Continue home Singulair -Incentive spirometer, Acapella (2) Troponin level elevated ICD Codes: R74.8 - Abnormal levels of other serum enzymes Status: Chronic Plan: Likely secondary to Chronic CHF -Pt is currently being optimized with medications for heart failure and will follow-up with cardiology for ischemic workup as an outpatient -Continue aspirin 81 mg by mouth daily (3) COPD (chronic obstructive pulmonary disease) ICD Codes: J44.9 - Chronic obstructive pulmonary disease, unspecified Status: Chronic Plan: Management as per Shortness of Breath section above. (4) T2DM (type 2 diabetes mellitus) ICD Codes: E11.9 - Type 2 diabetes mellitus without complications Status: Chronic Plan: Impression: Patient with history of A1c 6.6 in 08/2014. Patient reports that she takes metformin 500 mg daily, suspect poor compliance -Will continue SS Novolog (low dose) and Accuchecks while inpatient -HBA1C 7.6 (5) HTN (hypertension) ICD Codes: I10 - Essential (primary) hypertension Status: Chronic Plan: Impression: Hypertensive on admission with SBP and 170s-180s. Improved overnight. -Continue lisinopril 40 mg PO daily -Continue Carvedilol 25 mg PO BID (6) Acute renal failure ICD Codes: N17.9 - Acute kidney failure, unspecified Status: Acute Plan: Likely secondary to medication use with Lasix. Creatinine 1.14 on 02/08 Monitor urine output, blood work. (7) DVT PPX Status: Chronic Plan: -Lovenox 40mg subq daily (8) GI PPX Status: Chronic Plan: -Continue home Protonix 20 mg PO daily (for GERD) for GI PPX (Eko,Lynn Valladares MD R2) Problem Qualifiers (1) CHF (congestive heart failure): Qualified Codes: I50.23 - Acute on chronic systolic (congestive) heart failure (2) COPD (chronic obstructive pulmonary disease): Qualified Codes: J41.0 - Simple chronic bronchitis (3) T2DM (type 2 diabetes mellitus): Qualified Codes: E11.9 - Type 2 diabetes mellitus without complications (4) HTN (hypertension): Qualified Codes: I10 - Essential (primary) hypertension (5) Acute renal failure: Qualified Codes: N17.0 - Acute kidney failure with tubular necrosis Lynn Mcgraw MD R2 Feb 08, 2017 08:29 Abena Recinos MD Feb 08, 2017 21:07
[2017-02-08] MEDS ORDERED: CARVEDILOL 12.5 MG TAB PO ONE (08:30)
[2017-02-08] MEDS ORDERED: OXYGENTANK NAS.CANULA ×2 (08:34→10:08)
--- NOTE | 2017-02-08 08:35 | PD.CARD.PN ---
Subjective Subjective Remarks The patient feels better today. Less SOB. Continues to have low SpO2 on room air. No CP or palpitations. Had episode of ST this morning with rate up to 150 bpm. (Paulina Alston) Objective Medications Current Medications Medications (Trade) Dose Ordered Sig/Jose Route Start Time Stop Time Status Last Admin (Vasotec Inj) 1.25 mg Q8H PRN IV PUSH 02/06/17 14:00 02/06/17 13:39 (NS Flush) 2 ml UNSCH PRN IV FLUSH 02/06/17 13:30 (NS Flush) 2 ml BID IV FLUSH 02/06/17 21:00 02/08/17 08:09 (Zofran Inj) 4 mg Q6H PRN IVP 02/06/17 13:30 (Lovenox Inj) 40 mg Q24H SQ 02/06/17 21:00 02/07/17 22:46 (Narcan Inj) 0.4 mg UNSCH PRN IV 02/06/17 13:30 (Angela-Colace) 1 tab BID PO 02/06/17 21:00 02/08/17 08:12 (Milk Of Magnesia Liq) 30 ml Q12H PRN PO 02/06/17 13:30 (Senokot) 17.2 mg Q12H PRN PO 02/06/17 13:30 (Dulcolax Supp) 10 mg DAILY PRN RECTAL 02/06/17 13:30 (Lactulose Liq) 30 ml DAILY PRN PO 02/06/17 13:30 (Deltasone) 40 mg DAILY PO 02/07/17 09:00 02/08/17 08:10 (Levaquin) 750 mg DAILY PO 02/07/17 09:00 02/08/17 08:08 (Duoneb Neb) 1 ampule Q6HR NEB INH 02/06/17 16:00 02/08/17 08:25 (Albuterol Neb) 2.5 mg Q2HR NEB PRN INH 02/06/17 13:45 (Habitrol 21 Mg Patch.24 Hr) 1 patch DAILY TD 02/06/17 14:00 02/08/17 08:10 (Lasix Inj) 40 mg DAILY IV PUSH 02/07/17 09:00 02/08/17 08:09 (D50w (Vial) Inj) 50 ml UNSCH PRN IV 02/06/17 13:45 (Glucagon Inj) 1 mg UNSCH PRN OTHER 02/06/17 13:45 (NovoLOG SUPPLEMENTAL SCALE) 1 ACHS SLIDING SCALE SQ 02/06/17 16:00 02/07/17 22:58 (Aspirin Chew) 81 mg DAILY CHEW 02/07/17 09:00 02/08/17 08:07 (Xanax) 0.25 mg DAILY PRN PO 02/06/17 14:00 (Coreg) 12.5 mg DAILY PO 02/07/17 09:00 02/08/17 08:07 (Singulair) 10 mg DAILY PO 02/07/17 09:00 02/08/17 08:07 (Pravachol) 40 mg DAILY PO 02/07/17 09:00 02/08/17 08:08 (Prinivil) 40 mg DAILY PO 02/07/17 09:00 02/08/17 08:08 (Protonix) 20 mg DAILY PO 02/07/17 09:00 02/08/17 08:08 Miscellaneous Information 1 HS T-DERMAL 02/06/17 21:00 02/07/17 21:00 (Tylenol) 650 mg Q6H PRN PO 02/06/17 14:45 02/08/17 08:07 ([place] 5-325 Mg) 1 tab Q6H PRN PO 02/06/17 14:45 (Catapres) 0.2 mg Q6H PRN PO 02/07/17 02:00 (Neurontin) 600 mg Q12H PO 02/07/17 09:00 02/08/17 08:08 (Mucinex Er) 600 mg BID PO 02/07/17 09:00 02/08/17 08:08 Vital Signs / I&O Vital Signs Date Time Temp Pulse Resp B/P (MAP) Pulse Ox O2 Delivery O2 Flow Rate FiO2 02/08/17 08:26 97 2.00 02/08/17 07:46 85 02/08/17 07:26 98.9 87 20 176/99 (124) 97 02/08/17 04:19 101 02/08/17 03:17 98.1 82 18 166/80 (108) 93 02/08/17 01:33 98.1 84 18 164/82 (109) 94 02/08/17 00:12 89 02/07/17 22:33 165/78 (107) 02/07/17 20:36 94 Nasal Cannula 2.00 02/07/17 20:02 92 02/07/17 19:46 98.2 83 18 170/83 (112) 92 02/07/17 18:14 86 02/07/17 15:57 98.4 83 20 139/96 (110) 95 02/07/17 12:49 77 02/07/17 11:41 91 02/07/17 11:29 98.6 74 24 126/64 (84) 85 02/07/17 09:44 94 Nasal Cannula 2.00 I/O 02/07/17 02/07/17 02/07/17 02/08/17 02/08/17 02/08/17 07:00 15:00 23:00 07:00 15:00 23:00 Intake Total 480 ml Balance 480 ml Intake Oral 480 ml Physical Exam GENERAL: Obese middle age female, teary SKIN: Warm and dry. HEAD: Normocephalic. EYES: No scleral icterus. No injection or drainage. NECK: Supple, trachea midline. No JVD or lymphadenopathy. CARDIOVASCULAR: Regular rate and rhythm without murmurs, gallops, or rubs. RESPIRATORY: Breath sounds equal bilaterally. No accessory muscle use. nasal cannula GASTROINTESTINAL: Abdomen soft, non-tender, nondistended. MUSCULOSKELETAL: No cyanosis, or edema. BACK: Nontender without obvious deformity. Laboratory Laboratory Tests Test 02/07/17 10:37 White Blood Count 9.1 TH/MM3 Red Blood Count 5.10 MIL/MM3 Hemoglobin 15.5 GM/DL Hematocrit 47.2 % Mean Corpuscular Volume 92.6 FL Mean Corpuscular Hemoglobin 30.5 PG Mean Corpuscular Hemoglobin Concent 32.9 % Red Cell Distribution Width 14.5 % Platelet Count 242 TH/MM3 Mean Platelet Volume 9.3 FL Neutrophils (%) (Auto) 73.8 % Lymphocytes (%) (Auto) 17.7 % Monocytes (%) (Auto) 8.1 % Eosinophils (%) (Auto) 0.2 % Basophils (%) (Auto) 0.2 % Neutrophils # (Auto) 6.7 TH/MM3 Lymphocytes # (Auto) 1.6 TH/MM3 Monocytes # (Auto) 0.7 TH/MM3 Eosinophils # (Auto) 0.0 TH/MM3 Basophils # (Auto) 0.0 TH/MM3 CBC Comment DIFF FINAL Differential Comment Blood Urea Nitrogen 24 MG/DL Creatinine 1.00 MG/DL Random Glucose 180 MG/DL Total Protein 6.5 GM/DL Albumin 3.2 GM/DL Calcium Level 9.5 MG/DL Alkaline Phosphatase 105 U/L Aspartate Amino Transf (AST/SGOT) 21 U/L Alanine Aminotransferase (ALT/SGPT) 37 U/L Total Bilirubin 0.5 MG/DL Sodium Level 137 MEQ/L Potassium Level 3.3 MEQ/L Chloride Level 95 MEQ/L Carbon Dioxide Level 34.9 MEQ/L Anion Gap 7 MEQ/L Estimat Glomerular Filtration Rate 58 ML/MIN Hemoglobin A1c 7.6 % B-Type Natriuretic Peptide 568 PG/ML Triglycerides Level 292 MG/DL Cholesterol Level 259 MG/DL LDL Cholesterol 139 MG/DL HDL Cholesterol 62.1 MG/DL Cholesterol/HDL Ratio 4.17 RATIO Imaging Last 72 hours Impressions Chest X-Ray 02/07/17 0600 Signed Impressions: Service Date/Time: Tuesday, February 07, 2017 05:09 - CONCLUSION: 1. Cardiomegaly. Calcified granuloma left base. Linear atelectasis or scarring left hilar region. Galileo Pagan MD Chest X-Ray 02/06/17 1025 Signed Impressions: Service Date/Time: Monday, February 06, 2017 11:04 - CONCLUSION: 1. Cardiomegaly with slight positive fluid balance. Giles Palmer MD (Paulina Alsotn) Assessment and Plan Assessment and Plan Respiratory insufficiency due to acute on chronic diastolic CHF exacerbation and asthma/?COPD Slightly positive troponin due to CHF exacerbation Hx CMP, echo 01/2017 EF 50% Sinus tachycardia HTN NIIDM Tobacco and drug dependence Bipolar Non compliance PLAN: Transition to Lasix PO Increase Coreg to 25 mg BID Add amlodipine 5 mg at night Continue lisinopril Had a long discussion with the patient about medication compliance and risk factor modification. The patient will need ischemic work up outpatient. The patient may follow up with her PCP. Patient seen and evaluated by Dr Fisher who completed face to face encounter, did a physical exam and participated in evaluation and management. (Paulina Alston) Assessment and Plan The exam, history, and the medical decision-making described in the above note were completed with the assistance of the mid-level provider. I reviewed and agree with the findings presented. I attest that I had a [id number] encounter with the patient on the same day, and personally performed and documented my assessment and findings in the medical record. fu with PCP reviewed (Lazarus Fisher MD) Paulina Alston Feb 08, 2017 08:35 Lazarus Fisher MD Feb 09, 2017 15:18
[2017-02-08 11:31] LABS: AUTOMATED NEUTROPHIL # 7.5 TH/MM3 (1.8-7.7); BASOPHIL % 0.4 % (0.0-2.0); EOSINOPHIL % 0.4 % (0.0-4.0); HEMO FLAGS DIFF FINAL; LYMPH % 12.5 % (9.0-44.0); LYMPHOCYTE # 1.1 TH/MM3 (1.0-4.8); MEAN CORPUSCULAR HEMOGLOBIN 30.5 PG (27.0-34.0); MEAN CORPUSCULAR HGB CONC 33.1 % (32.0-36.0); NEUT % 83.7 % (16.0-70.0); PLATELET COUNT 234 TH/MM3 (150-450); RED BLOOD COUNT 5.11 MIL/MM3 (4.00-5.30); RED CELL DISTRIBUTION WIDTH 14.8 % (11.6-17.2); WHITE BLOOD COUNT 8.9 TH/MM3 (4.0-11.0)
[2017-02-08 11:58] LABS: BICARBONATE 32.7 MEQ/L (21.0-32.0)
[2017-02-08 11:59] LABS: POTASSIUM 4.8 MEQ/L (3.5-5.1)
[2017-02-08] MEDS ORDERED: ALBU0.08 NEB (14:27)
[2017-02-08] MEDS ORDERED: POTA-163 PO (14:27)
[2017-02-08] MEDS ORDERED: FURO1TAB60 PO (14:27)
[2017-02-08] MEDS ORDERED: GABA800T PO (14:27)
[2017-02-08] MEDS ORDERED: IPRASOL INH (14:27)
[2017-02-08] MEDS ORDERED: ASPI81CH CHEW (14:27)
[2017-02-08] MEDS ORDERED: LISI40TA PO (14:27)
[2017-02-08] MEDS ORDERED: METF500T PO (14:27)
[2017-02-08] MEDS ORDERED: IPRAAER INH (14:27)
[2017-02-08] MEDS ORDERED: PRIL20TA2 PO (14:27)
[2017-02-08] MEDS ORDERED: ADVA250A INH (14:27)
[2017-02-08] MEDS ORDERED: ATOR40TA16 PO (14:27)
[2017-02-08] MEDS ORDERED: AMLO5 PO (14:27)
[2017-02-08] MEDS ORDERED: MONT10TA2 PO (14:27)
--- NOTE | 2017-02-08 16:10 | HHI.DCPOC ---
Discharge Care Plan Diagnosis: (1) Acute exacerbation of congestive heart failure (2) COPD (chronic obstructive pulmonary disease) (3) T2DM (type 2 diabetes mellitus) (4) Cocaine abuse (5) Troponin level elevated Goals to Promote Your Health * To prevent worsening of your condition and complications * To maintain your health at the optimal level Directions to Meet Your Goals Take your medications as prescribed Follow your dietary instruction Follow activity as directed Keep your appointments as scheduled Take your immunizations and boosters as scheduled If your symptoms worsen call your PCP, if no PCP go to Urgent Care Center or Emergency Room Smoking is Dangerous to Your Health. Avoid second hand smoke Call the 24-hour hour crisis hotline for domestic abuse at Lynn Mcgraw MD R2 Feb 08, 2017 16:10
[2017-02-08] MEDS: ENOXAPARIN SODIUM 40 MG/0.4 ML SYRINGE SQ SCH (21:31)
[2017-02-08] MEDS: REMOVE OLD NICODERM (NICOTINE) PATCH T-DERMAL SCH (21:32)
[2017-02-08] MEDS: amLODIPine BESYLATE 5 MG TAB PO SCH (22:47)
[2017-02-09 00:06] VITALS: PULSE 80
[2017-02-09 00:11] VITALS: BP 134/80; PULSE 68; RESP 18; TEMP 98.2; O2SAT 97
[2017-02-09] MEDS: RESP: ALBUTEROL 2.5 MG/IPRATROPIUM 0.5 MG NEB (SCH) INH ×2 (03:29→10:25)
[2017-02-09 04:04] VITALS: BP 145/98; PULSE 79; PULSE 82; RESP 18; TEMP 98.3; O2SAT 97
[2017-02-09 04:41] LABS: AUTOMATED NEUTROPHIL # 5.7 TH/MM3 (1.8-7.7); BASOPHIL % 0.4 % (0.0-2.0); EOSINOPHIL % 0.4 % (0.0-4.0); HEMATOCRIT 46.3 % (35.0-46.0); HEMO FLAGS DIFF FINAL; LYMPH % 29.4 % (9.0-44.0); LYMPHOCYTE # 2.7 TH/MM3 (1.0-4.8); MEAN CORPUSCULAR HGB CONC 32.6 % (32.0-36.0); MONO % 6.6 % (0.0-8.0); NEUT % 63.2 % (16.0-70.0); PLATELET COUNT 259 TH/MM3 (150-450); RED BLOOD COUNT 5.04 MIL/MM3 (4.00-5.30); RED CELL DISTRIBUTION WIDTH 14.8 % (11.6-17.2); WHITE BLOOD COUNT 9.1 TH/MM3 (4.0-11.0)
[2017-02-09 05:06] LABS: BICARBONATE 35.6 MEQ/L (21.0-32.0); POTASSIUM 4.1 MEQ/L (3.5-5.1)
[2017-02-09 07:56] VITALS: BP 151/96; PULSE 76; RESP 19; TEMP 98; O2SAT 96
[2017-02-09] MEDS: FUROSEMIDE 40 MG/4 ML VIAL IV PUSH SCH (09:00)
[2017-02-09] MEDS: SODIUM CHLORIDE 0.9% FLUSH 10 ML FLUSH IV FLUSH SCH (09:00)
[2017-02-09] MEDS ORDERED: ATORVASTATIN 40 MG TAB PO SCH (09:00)
[2017-02-09] MEDS ORDERED: PRED20 PO (10:17)
[2017-02-09] MEDS ORDERED: AMLO10TA2 PO (10:17)
[2017-02-09] MEDS ORDERED: CARV12.52 PO (10:17)
[2017-02-09] MEDS ORDERED: LEVA750T9 PO (10:17)
[2017-02-09 10:25] VITALS: O2SAT 95
--- NOTE | 2017-02-09 10:28 | HHI.FPPN ---
Subjective Remarks Ms. Lee seen on rounds this AM by medicine team. Patient states her breathing is significantly improved from admission. We discussed with patient the possibility of needed home oxygen after failing her walk test, but patient stated she would likely deny this because she is flying out of the state to stay with her sister and doesn't want to take an oxygen tank with her and that she "doesn't need it." We discussed with patient the need to make healthier life choices after discharge. She denies CP, SOB, NVD. (Chavo Barcenas MD R1) Objective Vitals Vital Signs Date Time Temp Pulse Resp B/P (MAP) Pulse Ox O2 Delivery O2 Flow Rate FiO2 02/09/17 10:25 95 21 02/09/17 07:56 98.0 76 19 151/96 (114) 96 02/09/17 04:04 98.3 79 18 145/98 (114) 97 02/09/17 04:04 82 02/09/17 00:11 98.2 68 18 134/80 (98) 97 02/09/17 00:06 80 02/08/17 22:39 97.8 72 18 180/96 (124) 95 02/08/17 21:21 96 Nasal Cannula 2.00 02/08/17 21:16 99.0 75 20 166/85 (112) 99 02/08/17 20:21 75 02/08/17 16:00 98.1 78 18 155/79 (104) 95 02/08/17 14:24 80 02/08/17 11:23 97.5 72 22 120/61 (80) 95 I/O 02/08/17 02/08/17 02/08/17 02/09/17 02/09/17 02/09/17 07:00 15:00 23:00 07:00 15:00 23:00 # Voids 1 (Chavo Barcenas MD R1) Result Diagram: 02/09/17 0414 02/09/17 0421 Objective Remarks GENERAL: Patient sitting up in bed in NAD, no resp distress. Talks in complete sentences with no changes in respiratory effort. Did not have NC O2 in during interview HEENT: NCAT, EOMI, no scleral icterus, no conjunctival injection. MMM. NECK: Supple, no meningeal signs. No obvious JVD. CV: RRR, S1 S2. No murmurs. CHEST/PULM: CTAB, no crackles, no wheezes. Prolonged expiratory phase. ABD/GI: Soft, nontender, nondistended. EXT: 2+ DP pulses. Trace pitting edema to mid coello. No calf tenderness. NEURO: Awake, alert. Normal muscle tone. Grossly nonfocal. SKIN: No rashes, no jaundice. PSYCH: Mood and affect are appropriate. Speech fluent. Occasionally tearful when talking about not having family nearby and her plan to go live with her sister. (Chavo Barcenas MD R1) A/P Assessment and Plan Mrs. Lee is a 56 yo F with PMH of asthma, CHF, bipolar disorder who presented with symptoms of shortness of breath and chest discomfort that have mostly resolved on breathing treatments, steroids, lasix, and levaquin. However, based on the results of her respiratory oxygen walk test, she would need to be discharged home on oxygen. Discharge Planning Passed walk test today, will discharge home. (Chavo Barcenas MD R1) Attending Attestation Patient seen, examined, and discussed with Dr. Barcenas. I agree with assessment and management as documented and discussed with me. Pt reports her breathing is much improved today. 94% on room air at time of our exam. Passed walk test. Discharge home today. Greater than 30 minutes spent personally counselling and coordinating care at discharge. (Abena Recinos MD) Problem List: (1) CHF (congestive heart failure) ICD Codes: I50.9 - Heart failure, unspecified Status: Chronic Plan: Acute on chronic systolic CHF exacerbation in combination with COPD exacerbation. Likely secondary to cocaine use and nonadherence (ran out of medication). -Repeat ECHO on 02/07/17 shows low-normal systolic function with EF of 50% with no regional wall abnormalities -Appreciate cardiology recommendations, who recommend ischemic work up as an outpatient. Previous Echocardiogram in EMR 08/2016: Systolic function severely reduced per visual assessment. Estimated EF 10-15 percent with diffuse hypokinesis. Parameters consistent with reversible restrictive pattern suggestive of decreased LV diastolic compliance or increased L atrial pressure. Mild mitral regurgitation. PA peak 31mmHg -Continue diuresis 40mg PO Lasix daily -Continue Lisinopril 40mg PO daily -Continue Carvedilol 25 mg PO daily -Continue Amlodipine 5mg PO at night -Monitor Is/Os -Continue Prednisone 40mg PO daily x5 day - (day 3) will send out with Prednisone prescription -Lipid profile shows triglycerides 292, total cholesterol 259, LDL 139, HDL 62.1 ASCVD 10-year risk score of 12.1 with lifetime risk of 50% - recommend moderate to high-intensity statin Will switch to Atorvastatin 40mg PO daily For COPD Exacerbation -Continue Levofloxacin 750mg PO daily for total of 5 days - (day 3) - will send out prescription to finish course -Continue Albuterol, Duonebs -Continue home Singulair -Incentive spirometer, Acapella Passed walk test today - ok to discharge home without oxygen (2) Troponin level elevated ICD Codes: R74.8 - Abnormal levels of other serum enzymes Status: Chronic Plan: Likely secondary to Chronic CHF -Pt is currently being optimized with medications for heart failure and will follow-up with cardiology for ischemic workup as an outpatient -Continue aspirin 81 mg by mouth daily (3) COPD (chronic obstructive pulmonary disease) ICD Codes: J44.9 - Chronic obstructive pulmonary disease, unspecified Status: Chronic Plan: Management as per Shortness of Breath section above. (4) T2DM (type 2 diabetes mellitus) ICD Codes: E11.9 - Type 2 diabetes mellitus without complications Status: Chronic Plan: Impression: Patient with history of A1c 6.6 in 08/2014. Patient reports that she takes metformin 500 mg daily, suspect poor compliance -Will continue SS Novolog (low dose) and Accuchecks while inpatient -HBA1C 7.6 (5) HTN (hypertension) ICD Codes: I10 - Essential (primary) hypertension Status: Chronic Plan: Impression: Hypertensive on admission with SBP and 170s-180s. Improved overnight. -Continue lisinopril 40 mg PO daily -Continue Carvedilol 25 mg PO BID (6) Acute renal failure ICD Codes: N17.9 - Acute kidney failure, unspecified Status: Acute Plan: Likely secondary to medication use with Lasix. Creatinine 1.14 on 02/08 Monitor urine output, blood work. (7) DVT PPX Status: Chronic Plan: -Lovenox 40mg subq daily (8) GI PPX Status: Chronic Plan: -Continue home Protonix 20 mg PO daily (for GERD) for GI PPX (Chavo Barcenas MD R1) Problem Qualifiers (1) CHF (congestive heart failure): Qualified Codes: I50.23 - Acute on chronic systolic (congestive) heart failure (2) COPD (chronic obstructive pulmonary disease): Qualified Codes: J41.0 - Simple chronic bronchitis (3) T2DM (type 2 diabetes mellitus): Qualified Codes: E11.9 - Type 2 diabetes mellitus without complications (4) HTN (hypertension): Qualified Codes: I10 - Essential (primary) hypertension (5) Acute renal failure: Qualified Codes: N17.0 - Acute kidney failure with tubular necrosis Chavo Barcenas MD R1 Feb 09, 2017 10:28 Abena Recinos MD Feb 09, 2017 20:35
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
[2017-02-09] MEDS: NICOTINE 21 MG/24 HR PATCH TD SCH (11:10)
[2017-02-09] MEDS: INSULIN ASPART SUPPLEMENTAL SCALE SQ SCH (11:11)
[2017-02-09] MEDS: amLODIPine BESYLATE 5 MG TAB PO SCH (11:13)
[2017-02-09] MEDS: CARVEDILOL 12.5 MG TAB PO SCH (11:13)
[2017-02-09] MEDS: LISINOPRIL 20 MG TAB PO SCH (11:14)
[2017-02-09] MEDS: LEVOFLOXACIN 750 MG TAB PO SCH (11:15)
[2017-02-09] MEDS: predniSONE 20 MG TAB PO SCH (11:15)
[2017-02-09] MEDS: MONTELUKAST SODIUM 10 MG TAB PO SCH (11:16)
[2017-02-09] MEDS: ASPIRIN 81 MG CHEW TAB CHEW SCH (11:16)
[2017-02-09] MEDS: GABAPENTIN 300 MG CAP PO SCH (11:17)
[2017-02-09] MEDS: DOCUSATE SODIUM 50 MG/SENNA 8.6 MG TAB PO SCH (11:17)
[2017-02-09] MEDS: PANTOPRAZOLE SOD 20 MG DELAYED RELEASE TAB PO SCH (11:18)
[2017-02-09] MEDS: guaiFENesin E.R. 600 MG TAB PO SCH (11:18)
== END 2017-02-09 12:19 | disposition home or self-care (01) | DRG 292 ==
LOC: NEPC 10:15 → NEDA 12:22 → OBSVTOIN 13:32 → NEPFCDU 15:46
PROVIDERS: ADMIT Family Medicine; ATTEND Family Medicine
DX: I50.23 Acute on chronic systolic (congestive) heart failure (principal); Z68.41 Body mass index [BMI] 40.0-44.9, adult; N17.9 Acute kidney failure, unspecified; F14.20 Cocaine dependence, uncomplicated; I42.9 Cardiomyopathy, unspecified; J44.1 Chronic obstructive pulmonary disease with (acute) exacerbation; J45.909 Unspecified asthma, uncomplicated; E66.9 Obesity, unspecified; I10 Essential (primary) hypertension; F17.210 Nicotine dependence, cigarettes, uncomplicated; E78.5 Hyperlipidemia, unspecified; E11.9 Type 2 diabetes mellitus without complications; Z79.84 Long term (current) use of oral hypoglycemic drugs; F12.10 Cannabis abuse, uncomplicated; K21.9 Gastro-esophageal reflux disease without esophagitis; I25.10 Atherosclerotic heart disease of native coronary artery without angina pectoris; F31.9 Bipolar disorder, unspecified; Z91.120 Patient's intentional underdosing of medication regimen due to financial hardship; Z91.19 Patient's noncompliance with other medical treatment and regimen
CPT/HCPCS: 71010; 80048; 80053; 80061; 80307; 82550; 82948; 83036; 83880; 84484; 85025; 87070; 87205; 93005; 93306; 94150; 94620; 94640; 94664; 94667; 94668; 96365; 96375; J1650; J1815; J1940; J1956; J2930; J7512

== ENCOUNTER 2018-02-01 15:09 | Inpatient (IN) ==
[2018-02-01] MEDS ORDERED: predniSONE 20 MG Tablet PO ONE (15:47)
[2018-02-01 16:05] LABS: Baso % (Auto) 0.3 % (0.0-2.0); Eos # (Auto) 0.1 th/mm3 (0.0-0.4); Eos % (Auto) 0.9 % (0.0-4.0); Hematocrit 49.6 % (35.0-46.0); Hemoglobin 15.7 gm/dL (11.6-15.3); Lymph # (Auto) 1.6 th/mm3 (1.0-4.8); Lymph % (Auto) 22.7 % (9.0-44.0); Mean Corpuscular HGB Conc 31.6 % (32.0-36.0); Mean Corpuscular Hemoglobin 29.2 pg (27.0-34.0); Mean Corpuscular Volume 92.3 fL (80.0-100.0); Mean Platelet Volume 9.5 fL (7.0-11.0); Mono # (Auto) 0.4 th/mm3 (0.0-0.9); Mono % (Auto) 6.3 % (0.0-8.0); Neut # (Auto) 4.9 th/mm3 (1.8-7.7); Neut % (Auto) 69.8 % (16.0-70.0); Platelet Count 221 th/mm3 (150-450); Red Blood Count 5.38 mil/mm3 (4.00-5.30); Red Cell Distribution Width 16.2 % (11.6-17.2)
[2018-02-01 16:16] LABS: Alkaline Phosphatase 91 U/L (45-117); Total Protein 6.1 g/dL (6.4-8.2); Troponin I 0.03 ng/mL (0.02-0.05)
--- NOTE | 2018-02-01 16:17 | XR ---
EXAM DATE: 02/01/2018 4:13 PM EDT AGE/SEX: 57 years / Female INDICATIONS: Chest pain and short of breath CLINICAL DATA: This is the patient's initial encounter. Patient reports that signs and symptoms have been present for 2 months and indicates a pain score of 3/10. MEDICAL/SURGICAL HISTORY: None. None. [place] [facility] [place]. . FINDINGS: AP upright portable view of the chest demonstrates moderate cardiomegaly with diffuse cephalization o f pulmonary vasculature. The lungs are clear. Osseous structures are intact. CONCLUSION: Radiographic findings consistent with congestive heart failure or volume overload. Electronically signed by: Ewelina Rodriguez MD 02/01/2018 4:15 PM EDT
[2018-02-01 16:26] LABS: Alanine Aminotransferase 30 U/L (10-53); Albumin 2.8 g/dL (3.4-5.0); Anion Gap 5 meq/L (5-15); Aspartate Aminotransferase 19 U/L (15-37); Blood Urea Nitrogen 23 mg/dL (7-18); Calcium 8.3 mg/dL (8.5-10.1); Carbon Dioxide 32.6 meq/L (21.0-32.0); Chloride 106 meq/L (98-107); Glomerular Filtration Rate 67 mL/min (>89); Glucose,Random 234 mg/dL (74-106); Potassium 4.6 meq/L (3.5-5.1); Sodium 144 meq/L (136-145)
--- NOTE | 2018-02-01 16:56 | ED ---
HPI General Chief complaint: Respiratory Symptoms Stated complaint: SOB Time Seen by Provider: 02/01/18 15:50 History of Present Illness HPI narrative: Patient is a 57-year-old female presents emergency department with shortness of breath for the past 3 weeks. Patient states she was out with her boyfriend ran on oxygen and then went to the primary care physician who called 911 for her and she was brought in. Patient states she was thinking about coming in for the past 1.5 weeks anyways. States everytime she comes here she gets admitted. On home O2 at 2L per minute. No fever. Also reporte LLE swelling. No history of blood clot. No anticoagulant use. Symptoms moderate, for 3 weeks, gradually worsening, associated S/S and context as above. Related Data Home Medications Medication Instructions Recorded Confirmed carvedilol 12.5 mg PO BID 02/01/18 02/01/18 furosemide 40 mg PO DAILY 02/01/18 02/01/18 gabapentin [Neurontin] 800 mg PO TID 02/01/18 02/01/18 insulin glargine [Lantus U-100 30 unit SUB-Q HS 02/01/18 02/01/18 Insulin] ipratropium bromide [Atrovent HFA] 1 puff INHALATION Q6H 02/01/18 02/01/18 lisinopril 40 mg PO DAILY 02/01/18 02/01/18 metformin 500 mg PO DAILY 02/01/18 02/01/18 montelukast [Singulair] 10 mg PO QPM 02/01/18 02/01/18 nebulizers 02/01/18 02/01/18 omeprazole 20 mg PO DAILY 02/01/18 02/01/18 potassium chloride 10 meq PO ONCE 02/01/18 02/01/18 Allergies Allergy/AdvReac Type Severity Reaction Status Date / Time azithromycin Allergy Severe RASH Verified 02/01/18 15:54 divalproex sodium Allergy Severe SWELLS UP Verified 02/01/18 15:54 *MDRO Multi-Drug Resistant AdvReac Unknown Abdominal Uncoded 02/01/18 15:54 Organism Pain Review of Systems ROS: all other systems reviewed are negative [facility] Medical History Medical History CHF (congestive heart failure) (Acute) COPD (chronic obstructive pulmonary disease) (Acute) Diabetes (Acute) Family History Family History Other Family history non-contributory Social History Social History Substance History: Past History Second Hand Smoke Exposure: Yes Smoking Status: Current every day smoker Tobacco Type: Cigarettes How Often Do You Have a Drink Containing Alcohol: 2 to 3 times a week Recent Travel in [facility] within the Last 8 Weeks: No Recent Out of Country Travel within the Last 8 Weeks: No Immunization History Tetanus Immunization: Unsure Exam Narrative Exam Narrative: GENERAL: WD/WN with mile increased WOB. SKIN: Focused skin assessment warm/dry. HEAD: Atraumatic. Normocephalic. EYES: Pupils equal and round. No scleral icterus. No injection or drainage. ENT: No nasal bleeding or discharge. Mucous membranes pink and moist. NECK: Trachea midline. No JVD. CARDIOVASCULAR: Regular rate and rhythm. No murmur appreciated. RESPIRATORY: No accessory muscle use. Clear to auscultation. Breath sounds equal bilaterally. Mild increase WOB. GASTROINTESTINAL: Abdomen soft, non-tender, nondistended. Hepatic and splenic margins not palpable. MUSCULOSKELETAL: No obvious deformities. No clubbing. No cyanosis. Bilateral LE edema, has more on left than on right. Mild. NEUROLOGICAL: Awake and alert. No obvious cranial nerve deficits. Motor grossly within normal limits. Normal speech. PSYCHIATRIC: Appropriate mood and affect; insight and judgment normal. Course Initial Documented Vital Signs Temperature 98.8 F 02/01/18 15:50 Pulse Rate 80 02/01/18 15:50 Respiratory Rate 20 02/01/18 15:50 Blood Pressure 210/116 H 02/01/18 15:50 Pulse Oximetry 93 L 02/01/18 15:50 Last Documented Vital Signs Temperature 98.1 F 02/07/18 08:00 Pulse Rate 59 L 02/07/18 08:00 Respiratory Rate 19 02/07/18 08:00 Blood Pressure 176/93 H 02/07/18 08:00 Pulse Oximetry 96 02/07/18 08:00 Sign Out Sign Out Data: Patient Sign Out occurred on 02/01/18 at 17:53. Patient's care was discussed, and care was transferred from Jose Manuel Logan MD to Nasir Mueller MD. Sign Out Comment: D/W Dr. Mueller, f/u labs, imaging, disposition appropriately. Last updated by Jose Manuel Logan MD at 02/01/18 17:39 Post-Handoff Eval: This case is checked out to me by Dr. chase at 5 PM. I have reevaluated the patient. I reviewed the entirety of the workup with her. Her basic labs are reasonably normal. Her ABG is very abnormal. She is hypercarbic and hypoxemic. On evaluation she is very lethargic and dozes off in the middle of a sentence. I do not think she needs to be intubated but I believe she does need BiPAP to blow off CO2. I reviewed with the patient and she is agreeable. I have called respiratory therapist and they have apply the BiPAP mask. Her chest x-ray and CT have been reviewed. No PE. Case discussed with ordnance mechanic Dr. Solano. He will admit to intensive care for acute hypercarbic respiratory failure on BiPAP. Her pH is 7.33 so not compensated Aggregate critical care time was 35 minutes. Time to perform other separately billable procedures was not included in the critical care time. My time did not include minutes spent treating any other patients simultaneously or on activities that did not directly contribute to the patient's treatment. The services I provided to this patient were to treat and/or prevent clinically significant deterioration that could result in: Respiratory collapse, cardiopulmonary arrest, loss of airway I provided critical care services requiring my management, as noted below: Chart data review, documentation time, medication orders and management, vital sign assessments/reviewing monitor data, ordering and reviewing lab tests, ordering and interpreting/reviewing x-rays and diagnostic studies, care of the patient and discussion of the patient with the admitting physicians. Medical Decision Making MDM Narrative Medical decision making narrative: Patient roomed in the ER. She does have minimal to moderate increase wob. Increased demand for O2 today. CXR does show Cardiomegally with increased pulmonary markings. Lungs were clear for me. LLE edema. DVT US and CTA PE was ordered. 40mg lasix, prednisone 60mg PO, duoneb x3. Discussed with Dr. Mueller at 1700 shift change to follow up labs, radiographic studies and disposition appropriately. CBC returned WBC normal, no left shift. No fever. Medical Screen Exam Complete: Yes Emergency Medical Condition: Yes Differential Diagnosis Differential Diagnosis: COPD exacerbation, CHF exacerbation, DVT, PE, pneumonia. Lab Data Result diagrams: 02/07/18 06:03 02/07/18 06:03 Lab Results 02/01/18 02/01/18 02/01/18 Range/Units 15:45 15:45 15:45 WBC 7.0 (4.0-11.0) th/mm3 RBC 5.38 H (4.00-5.30) mil/mm3 Hgb 15.7 H (11.6-15.3) gm/dL Hct 49.6 H (35.0-46.0) % MCV 92.3 (80.0-100.0) fL MCH 29.2 (27.0-34.0) pg MCHC 31.6 L (32.0-36.0) % RDW 16.2 (11.6-17.2) % Plt Count 221 (150-450) th/mm3 MPV 9.5 (7.0-11.0) fL Neut % (Auto) 69.8 (16.0-70.0) % Lymph % (Auto) 22.7 (9.0-44.0) % Placer % (Auto) 6.3 (0.0-8.0) % Eos % (Auto) 0.9 (0.0-4.0) % Baso % (Auto) 0.3 (0.0-2.0) % Neut # (Auto) 4.9 (1.8-7.7) th/mm3 Lymph # (Auto) 1.6 (1.0-4.8) th/mm3 Placer # (Auto) 0.4 (0.0-0.9) th/mm3 Eos # (Auto) 0.1 (0.0-0.4) th/mm3 Baso # (Auto) 0.0 (0.0-0.2) th/mm3 WBC Differential . Differential Comment Auto diff final Puncture Site Patient Temperature O2 Saturation (90-100) % ABG pH (7.380-7.420) ABG pCO2 (38-42) mmHg ABG pO2 (61-120) mmHg ABG HCO3 (22-26) mmol/L ABG O2 Content (12.0-20.0) Vol % ABG Base Excess (-2-2) mmol/L ABG Methemoglobin (0-2) % Karlos Test Hemoglobin (12.0-16.0) G/DL Carboxyhemoglobin (0-4) % O2 Delivery Device Liter Flow L/M Vent Setting Inspired O2 % Critical Value Sodium 144 (136-145) meq/L Potassium 4.6 (3.5-5.1) meq/L Chloride 106 (98-107) meq/L Carbon Dioxide 32.6 H (21.0-32.0) meq/L Anion Gap 5 (5-15) meq/L BUN 23 H (7-18) mg/dL Creatinine 0.87 (0.50-1.00) mg/dL Estimated GFR 67 L (>89) mL/min POC Glucose (68-110) mg/dl Random Glucose 234 H (74-106) mg/dL Lactic Acid 1.0 (0.4-2.0) mmol/L Calcium 8.3 L (8.5-10.1) mg/dL Phosphorus (2.5-4.9) mg/dL Magnesium (1.5-2.5) mg/dL Total Bilirubin 0.2 (0.2-1.0) mg/dL AST 19 (15-37) U/L ALT 30 (10-53) U/L Alkaline Phosphatase 91 (45-117) U/L Troponin I 0.03 (0.02-0.05) ng/mL Total Protein 6.1 L (6.4-8.2) g/dL Albumin 2.8 L (3.4-5.0) g/dL Nasal Screen MRSA (PCR) (Negative) 02/01/18 02/01/18 02/01/18 Range/Units 17:34 21:14 21:38 WBC (4.0-11.0) th/mm3 RBC (4.00-5.30) mil/mm3 Hgb (11.6-15.3) gm/dL Hct (35.0-46.0) % MCV (80.0-100.0) fL MCH (27.0-34.0) pg MCHC (32.0-36.0) % RDW (11.6-17.2) % Plt Count (150-450) th/mm3 MPV (7.0-11.0) fL Neut % (Auto) (16.0-70.0) % Lymph % (Auto) (9.0-44.0) % Placer % (Auto) (0.0-8.0) % Eos % (Auto) (0.0-4.0) % Baso % (Auto) (0.0-2.0) % Neut # (Auto) (1.8-7.7) th/mm3 Lymph # (Auto) (1.0-4.8) th/mm3 Placer # (Auto) (0.0-0.9) th/mm3 Eos # (Auto) (0.0-0.4) th/mm3 Baso # (Auto) (0.0-0.2) th/mm3 WBC Differential Differential Comment Puncture Site Left brachial Left radial Patient Temperature 98.6 98.6 O2 Saturation 82 L* 91 (90-100) % ABG pH 7.33 L 7.32 L (7.380-7.420) ABG pCO2 66 H* 70 H* (38-42) mmHg ABG pO2 59 L* 91 (61-120) mmHg ABG HCO3 34 H 35 H (22-26) mmol/L ABG O2 Content 19.0 21.2 H (12.0-20.0) Vol % ABG Base Excess 8.1 H 8.5 H (-2-2) mmol/L ABG Methemoglobin 0.8 1.6 (0-2) % Karlos Test Present Hemoglobin 16.4 H 16.6 H (12.0-16.0) G/DL Carboxyhemoglobin 5.6 H* 4.3 H (0-4) % O2 Delivery Device Nasal cannula Bipap Liter Flow 3.00 L/M Vent Setting Ipap12/epap5 Inspired O2 32 50 % Critical Value Yes Yes Sodium (136-145) meq/L Potassium (3.5-5.1) meq/L Chloride (98-107) meq/L Carbon Dioxide (21.0-32.0) meq/L Anion Gap (5-15) meq/L BUN (7-18) mg/dL Creatinine (0.50-1.00) mg/dL Estimated GFR (>89) mL/min POC Glucose (68-110) mg/dl Random Glucose (74-106) mg/dL Lactic Acid (0.4-2.0) mmol/L Calcium (8.5-10.1) mg/dL Phosphorus (2.5-4.9) mg/dL Magnesium (1.5-2.5) mg/dL Total Bilirubin (0.2-1.0) mg/dL AST (15-37) U/L ALT (10-53) U/L Alkaline Phosphatase (45-117) U/L Troponin I (0.02-0.05) ng/mL Total Protein (6.4-8.2) g/dL Albumin (3.4-5.0) g/dL Nasal Screen MRSA (PCR) Mrsa detected (Negative) 02/02/18 02/02/18 02/02/18 Range/Units 00:11 05:20 05:22 WBC 5.5 (4.0-11.0) th/mm3 RBC 5.63 H (4.00-5.30) mil/mm3 Hgb 16.3 H (11.6-15.3) gm/dL Hct 51.8 H (35.0-46.0) % MCV 92.1 (80.0-100.0) fL MCH 29.0 (27.0-34.0) pg MCHC 31.5 L (32.0-36.0) % RDW 16.5 (11.6-17.2) % Plt Count 225 (150-450) th/mm3 MPV 9.9 (7.0-11.0) fL Neut % (Auto) 89.6 H (16.0-70.0) % Lymph % (Auto) 9.0 (9.0-44.0) % Placer % (Auto) 1.1 (0.0-8.0) % Eos % (Auto) 0.0 (0.0-4.0) % Baso % (Auto) 0.3 (0.0-2.0) % Neut # (Auto) 5.0 (1.8-7.7) th/mm3 Lymph # (Auto) 0.5 L (1.0-4.8) th/mm3 Placer # (Auto) 0.1 (0.0-0.9) th/mm3 Eos # (Auto) 0.0 (0.0-0.4) th/mm3 Baso # (Auto) 0.0 (0.0-0.2) th/mm3 WBC Differential . Differential Comment Auto diff final Puncture Site Patient Temperature O2 Saturation (90-100) % ABG pH (7.380-7.420) ABG pCO2 (38-42) mmHg ABG pO2 (61-120) mmHg ABG HCO3 (22-26) mmol/L ABG O2 Content (12.0-20.0) Vol % ABG Base Excess (-2-2) mmol/L ABG Methemoglobin (0-2) % Karlos Test Hemoglobin (12.0-16.0) G/DL Carboxyhemoglobin (0-4) % O2 Delivery Device Liter Flow L/M Vent Setting Inspired O2 % Critical Value Sodium (136-145) meq/L Potassium (3.5-5.1) meq/L Chloride (98-107) meq/L Carbon Dioxide (21.0-32.0) meq/L Anion Gap (5-15) meq/L BUN (7-18) mg/dL Creatinine (0.50-1.00) mg/dL Estimated GFR (>89) mL/min POC Glucose 319 H 207 H (68-110) mg/dl Random Glucose (74-106) mg/dL Lactic Acid (0.4-2.0) mmol/L Calcium (8.5-10.1) mg/dL Phosphorus (2.5-4.9) mg/dL Magnesium (1.5-2.5) mg/dL Total Bilirubin (0.2-1.0) mg/dL AST (15-37) U/L ALT (10-53) U/L Alkaline Phosphatase (45-117) U/L Troponin I (0.02-0.05) ng/mL Total Protein (6.4-8.2) g/dL Albumin (3.4-5.0) g/dL Nasal Screen MRSA (PCR) (Negative) 02/02/18 02/02/18 02/02/18 Range/Units 05:22 05:28 08:09 WBC (4.0-11.0) th/mm3 RBC (4.00-5.30) mil/mm3 Hgb (11.6-15.3) gm/dL Hct (35.0-46.0) % MCV (80.0-100.0) fL MCH (27.0-34.0) pg MCHC (32.0-36.0) % RDW (11.6-17.2) % Plt Count (150-450) th/mm3 MPV (7.0-11.0) fL Neut % (Auto) (16.0-70.0) % Lymph % (Auto) (9.0-44.0) % Placer % (Auto) (0.0-8.0) % Eos % (Auto) (0.0-4.0) % Baso % (Auto) (0.0-2.0) % Neut # (Auto) (1.8-7.7) th/mm3 Lymph # (Auto) (1.0-4.8) th/mm3 Placer # (Auto) (0.0-0.9) th/mm3 Eos # (Auto) (0.0-0.4) th/mm3 Baso # (Auto) (0.0-0.2) th/mm3 WBC Differential Differential Comment Puncture Site Right radial Right radial Patient Temperature 98.6 98.6 O2 Saturation 88 L* 90 (90-100) % ABG pH 7.27 L* 7.30 L (7.380-7.420) ABG pCO2 80 H* 74 H* (38-42) mmHg ABG pO2 70 73 (61-120) mmHg ABG HCO3 35 H 35 H (22-26) mmol/L ABG O2 Content 20.2 H 20.8 H (12.0-20.0) Vol % ABG Base Excess 8.5 H 9.0 H (-2-2) mmol/L ABG Methemoglobin 1.5 1.5 (0-2) % Karlos Test Present Present Hemoglobin 16.4 H 16.5 H (12.0-16.0) G/DL Carboxyhemoglobin 2.6 2.3 (0-4) % O2 Delivery Device Nasal cannula Bipap Liter Flow 6.00 L/M Vent Setting 18/+8 Inspired O2 65 % Critical Value Yes Yes Sodium 142 (136-145) meq/L Potassium 4.4 (3.5-5.1) meq/L Chloride 101 (98-107) meq/L Carbon Dioxide 35.0 H (21.0-32.0) meq/L Anion Gap 6 (5-15) meq/L BUN 20 H (7-18) mg/dL Creatinine 0.87 (0.50-1.00) mg/dL Estimated GFR 67 L (>89) mL/min POC Glucose (68-110) mg/dl Random Glucose 217 H (74-106) mg/dL Lactic Acid (0.4-2.0) mmol/L Calcium 8.3 L (8.5-10.1) mg/dL Phosphorus 4.9 (2.5-4.9) mg/dL Magnesium 1.8 (1.5-2.5) mg/dL Total Bilirubin (0.2-1.0) mg/dL AST (15-37) U/L ALT (10-53) U/L Alkaline Phosphatase (45-117) U/L Troponin I (0.02-0.05) ng/mL Total Protein (6.4-8.2) g/dL Albumin (3.4-5.0) g/dL Nasal Screen MRSA (PCR) (Negative) 02/02/18 02/02/18 02/02/18 Range/Units 11:51 15:14 18:04 WBC (4.0-11.0) th/mm3 RBC (4.00-5.30) mil/mm3 Hgb (11.6-15.3) gm/dL Hct (35.0-46.0) % MCV (80.0-100.0) fL MCH (27.0-34.0) pg MCHC (32.0-36.0) % RDW (11.6-17.2) % Plt Count (150-450) th/mm3 MPV (7.0-11.0) fL Neut % (Auto) (16.0-70.0) % Lymph % (Auto) (9.0-44.0) % Placer % (Auto) (0.0-8.0) % Eos % (Auto) (0.0-4.0) % Baso % (Auto) (0.0-2.0) % Neut # (Auto) (1.8-7.7) th/mm3 Lymph # (Auto) (1.0-4.8) th/mm3 Placer # (Auto) (0.0-0.9) th/mm3 Eos # (Auto) (0.0-0.4) th/mm3 Baso # (Auto) (0.0-0.2) th/mm3 WBC Differential Differential Comment Puncture Site Left radial Patient Temperature 98.6 O2 Saturation 89 L* (90-100) % ABG pH 7.33 L (7.380-7.420) ABG pCO2 65 H* (38-42) mmHg ABG pO2 67 (61-120) mmHg ABG HCO3 33 H (22-26) mmol/L ABG O2 Content 19.8 (12.0-20.0) Vol % ABG Base Excess 7.4 H (-2-2) mmol/L ABG Methemoglobin 1.5 (0-2) % Karlos Test Present Hemoglobin 15.9 (12.0-16.0) G/DL Carboxyhemoglobin 1.7 (0-4) % O2 Delivery Device High flow nc Liter Flow 40.00 L/M Vent Setting Inspired O2 65 % Critical Value Yes Sodium (136-145) meq/L Potassium (3.5-5.1) meq/L Chloride (98-107) meq/L Carbon Dioxide (21.0-32.0) meq/L Anion Gap (5-15) meq/L BUN (7-18) mg/dL Creatinine (0.50-1.00) mg/dL Estimated GFR (>89) mL/min POC Glucose 382 H 333 H (68-110) mg/dl Random Glucose (74-106) mg/dL Lactic Acid (0.4-2.0) mmol/L Calcium (8.5-10.1) mg/dL Phosphorus (2.5-4.9) mg/dL Magnesium (1.5-2.5) mg/dL Total Bilirubin (0.2-1.0) mg/dL AST (15-37) U/L ALT (10-53) U/L Alkaline Phosphatase (45-117) U/L Troponin I (0.02-0.05) ng/mL Total Protein (6.4-8.2) g/dL Albumin (3.4-5.0) g/dL Nasal Screen MRSA (PCR) (Negative) 02/02/18 02/03/18 02/03/18 Range/Units 20:40 00:30 00:36 WBC (4.0-11.0) th/mm3 RBC (4.00-5.30) mil/mm3 Hgb (11.6-15.3) gm/dL Hct (35.0-46.0) % MCV (80.0-100.0) fL MCH (27.0-34.0) pg MCHC (32.0-36.0) % RDW (11.6-17.2) % Plt Count (150-450) th/mm3 MPV (7.0-11.0) fL Neut % (Auto) (16.0-70.0) % Lymph % (Auto) (9.0-44.0) % Placer % (Auto) (0.0-8.0) % Eos % (Auto) (0.0-4.0) % Baso % (Auto) (0.0-2.0) % Neut # (Auto) (1.8-7.7) th/mm3 Lymph # (Auto) (1.0-4.8) th/mm3 Placer # (Auto) (0.0-0.9) th/mm3 Eos # (Auto) (0.0-0.4) th/mm3 Baso # (Auto) (0.0-0.2) th/mm3 WBC Differential Differential Comment Puncture Site Right radial Patient Temperature 98.6 O2 Saturation 85 L* (90-100) % ABG pH 7.30 L (7.380-7.420) ABG pCO2 71 H* (38-42) mmHg ABG pO2 59 L* (61-120) mmHg ABG HCO3 34 H (22-26) mmol/L ABG O2 Content 18.3 (12.0-20.0) Vol % ABG Base Excess 8.1 H (-2-2) mmol/L ABG Methemoglobin 1.5 (0-2) % Karlos Test Present Hemoglobin 15.3 (12.0-16.0) G/DL Carboxyhemoglobin 1.2 (0-4) % O2 Delivery Device Bipap Liter Flow L/M Vent Setting 18ipap/8epap Inspired O2 80 % Critical Value Yes Sodium (136-145) meq/L Potassium (3.5-5.1) meq/L Chloride (98-107) meq/L Carbon Dioxide (21.0-32.0) meq/L Anion Gap (5-15) meq/L BUN (7-18) mg/dL Creatinine (0.50-1.00) mg/dL Estimated GFR (>89) mL/min POC Glucose 381 H 236 H (68-110) mg/dl Random Glucose (74-106) mg/dL Lactic Acid (0.4-2.0) mmol/L Calcium (8.5-10.1) mg/dL Phosphorus (2.5-4.9) mg/dL Magnesium (1.5-2.5) mg/dL Total Bilirubin (0.2-1.0) mg/dL AST (15-37) U/L ALT (10-53) U/L Alkaline Phosphatase (45-117) U/L Troponin I (0.02-0.05) ng/mL Total Protein (6.4-8.2) g/dL Albumin (3.4-5.0) g/dL Nasal Screen MRSA (PCR) (Negative) 02/03/18 02/03/18 02/03/18 Range/Units 05:50 06:01 06:01 WBC 7.9 (4.0-11.0) th/mm3 RBC 5.30 (4.00-5.30) mil/mm3 Hgb 15.4 H (11.6-15.3) gm/dL Hct 49.3 H (35.0-46.0) % MCV 92.9 (80.0-100.0) fL MCH 29.0 (27.0-34.0) pg MCHC 31.2 L (32.0-36.0) % RDW 15.9 (11.6-17.2) % Plt Count 234 (150-450) th/mm3 MPV 9.2 (7.0-11.0) fL Neut % (Auto) 90.4 H (16.0-70.0) % Lymph % (Auto) 6.0 L (9.0-44.0) % Placer % (Auto) 3.2 (0.0-8.0) % Eos % (Auto) 0.0 (0.0-4.0) % Baso % (Auto) 0.4 (0.0-2.0) % Neut # (Auto) 7.2 (1.8-7.7) th/mm3 Lymph # (Auto) 0.5 L (1.0-4.8) th/mm3 Placer # (Auto) 0.3 (0.0-0.9) th/mm3 Eos # (Auto) 0.0 (0.0-0.4) th/mm3 Baso # (Auto) 0.0 (0.0-0.2) th/mm3 WBC Differential . Differential Comment Auto diff final Puncture Site Right radial Patient Temperature 98.6 O2 Saturation 93 (90-100) % ABG pH 7.31 L (7.380-7.420) ABG pCO2 68 H* (38-42) mmHg ABG pO2 85 (61-120) mmHg ABG HCO3 33 H (22-26) mmol/L ABG O2 Content 20.5 H (12.0-20.0) Vol % ABG Base Excess 7.2 H (-2-2) mmol/L ABG Methemoglobin 1.5 (0-2) % Karlos Test Present Hemoglobin 15.6 (12.0-16.0) G/DL Carboxyhemoglobin 1.0 (0-4) % O2 Delivery Device Bipap Liter Flow L/M Vent Setting 18ipap/8 epap Inspired O2 80 % Critical Value Yes Sodium 142 (136-145) meq/L Potassium 4.4 (3.5-5.1) meq/L Chloride 101 (98-107) meq/L Carbon Dioxide 33.8 H (21.0-32.0) meq/L Anion Gap 7 (5-15) meq/L BUN 30 H (7-18) mg/dL Creatinine 1.08 H (0.50-1.00) mg/dL Estimated GFR 52 L (>89) mL/min POC Glucose (68-110) mg/dl Random Glucose 200 H (74-106) mg/dL Lactic Acid (0.4-2.0) mmol/L Calcium 8.6 (8.5-10.1) mg/dL Phosphorus 5.4 H (2.5-4.9) mg/dL Magnesium 2.0 (1.5-2.5) mg/dL Total Bilirubin (0.2-1.0) mg/dL AST (15-37) U/L ALT (10-53) U/L Alkaline Phosphatase (45-117) U/L Troponin I (0.02-0.05) ng/mL Total Protein (6.4-8.2) g/dL Albumin (3.4-5.0) g/dL Nasal Screen MRSA (PCR) (Negative) 02/03/18 02/03/18 02/03/18 Range/Units 06:06 11:21 17:14 WBC (4.0-11.0) th/mm3 RBC (4.00-5.30) mil/mm3 Hgb (11.6-15.3) gm/dL Hct (35.0-46.0) % MCV (80.0-100.0) fL MCH (27.0-34.0) pg MCHC (32.0-36.0) % RDW (11.6-17.2) % Plt Count (150-450) th/mm3 MPV (7.0-11.0) fL Neut % (Auto) (16.0-70.0) % Lymph % (Auto) (9.0-44.0) % Placer % (Auto) (0.0-8.0) % Eos % (Auto) (0.0-4.0) % Baso % (Auto) (0.0-2.0) % Neut # (Auto) (1.8-7.7) th/mm3 Lymph # (Auto) (1.0-4.8) th/mm3 Placer # (Auto) (0.0-0.9) th/mm3 Eos # (Auto) (0.0-0.4) th/mm3 Baso # (Auto) (0.0-0.2) th/mm3 WBC Differential Differential Comment Puncture Site Patient Temperature O2 Saturation (90-100) % ABG pH (7.380-7.420) ABG pCO2 (38-42) mmHg ABG pO2 (61-120) mmHg ABG HCO3 (22-26) mmol/L ABG O2 Content (12.0-20.0) Vol % ABG Base Excess (-2-2) mmol/L ABG Methemoglobin (0-2) % Karlos Test Hemoglobin (12.0-16.0) G/DL Carboxyhemoglobin (0-4) % O2 Delivery Device Liter Flow L/M Vent Setting Inspired O2 % Critical Value Sodium (136-145) meq/L Potassium (3.5-5.1) meq/L Chloride (98-107) meq/L Carbon Dioxide (21.0-32.0) meq/L Anion Gap (5-15) meq/L BUN (7-18) mg/dL Creatinine (0.50-1.00) mg/dL Estimated GFR (>89) mL/min POC Glucose 190 H 144 H 271 H (68-110) mg/dl Random Glucose (74-106) mg/dL Lactic Acid (0.4-2.0) mmol/L Calcium (8.5-10.1) mg/dL Phosphorus (2.5-4.9) mg/dL Magnesium (1.5-2.5) mg/dL Total Bilirubin (0.2-1.0) mg/dL AST (15-37) U/L ALT (10-53) U/L Alkaline Phosphatase (45-117) U/L Troponin I (0.02-0.05) ng/mL Total Protein (6.4-8.2) g/dL Albumin (3.4-5.0) g/dL Nasal Screen MRSA (PCR) (Negative) 02/03/18 02/03/18 02/04/18 Range/Units 20:01 23:40 05:09 WBC (4.0-11.0) th/mm3 RBC (4.00-5.30) mil/mm3 Hgb (11.6-15.3) gm/dL Hct (35.0-46.0) % MCV (80.0-100.0) fL MCH (27.0-34.0) pg MCHC (32.0-36.0) % RDW (11.6-17.2) % Plt Count (150-450) th/mm3 MPV (7.0-11.0) fL Neut % (Auto) (16.0-70.0) % Lymph % (Auto) (9.0-44.0) % Placer % (Auto) (0.0-8.0) % Eos % (Auto) (0.0-4.0) % Baso % (Auto) (0.0-2.0) % Neut # (Auto) (1.8-7.7) th/mm3 Lymph # (Auto) (1.0-4.8) th/mm3 Placer # (Auto) (0.0-0.9) th/mm3 Eos # (Auto) (0.0-0.4) th/mm3 Baso # (Auto) (0.0-0.2) th/mm3 WBC Differential Differential Comment Puncture Site Right radial Patient Temperature 98.6 O2 Saturation 90 (90-100) % ABG pH 7.29 L* (7.380-7.420) ABG pCO2 75 H* (38-42) mmHg ABG pO2 73 (61-120) mmHg ABG HCO3 35 H (22-26) mmol/L ABG O2 Content 19.7 (12.0-20.0) Vol % ABG Base Excess 8.1 H (-2-2) mmol/L ABG Methemoglobin 1.5 (0-2) % Karlos Test + Hemoglobin 15.6 (12.0-16.0) G/DL Carboxyhemoglobin 1.0 (0-4) % O2 Delivery Device Bipap Liter Flow L/M Vent Setting Inspired O2 75 % Critical Value Yes Sodium (136-145) meq/L Potassium (3.5-5.1) meq/L Chloride (98-107) meq/L Carbon Dioxide (21.0-32.0) meq/L Anion Gap (5-15) meq/L BUN (7-18) mg/dL Creatinine (0.50-1.00) mg/dL Estimated GFR (>89) mL/min POC Glucose 290 H 244 H (68-110) mg/dl Random Glucose (74-106) mg/dL Lactic Acid (0.4-2.0) mmol/L Calcium (8.5-10.1) mg/dL Phosphorus (2.5-4.9) mg/dL Magnesium (1.5-2.5) mg/dL Total Bilirubin (0.2-1.0) mg/dL AST (15-37) U/L ALT (10-53) U/L Alkaline Phosphatase (45-117) U/L Troponin I (0.02-0.05) ng/mL Total Protein (6.4-8.2) g/dL Albumin (3.4-5.0) g/dL Nasal Screen MRSA (PCR) (Negative) 02/04/18 02/04/18 02/04/18 Range/Units 05:43 05:43 05:53 WBC 9.0 (4.0-11.0) th/mm3 RBC 5.53 H (4.00-5.30) mil/mm3 Hgb 16.2 H (11.6-15.3) gm/dL Hct 49.8 H (35.0-46.0) % MCV 90.1 (80.0-100.0) fL MCH 29.3 (27.0-34.0) pg MCHC 32.5 (32.0-36.0) % RDW 15.9 (11.6-17.2) % Plt Count 236 (150-450) th/mm3 MPV 9.1 (7.0-11.0) fL Neut % (Auto) 93.3 H (16.0-70.0) % Lymph % (Auto) 5.0 L (9.0-44.0) % Placer % (Auto) 1.5 (0.0-8.0) % Eos % (Auto) 0.0 (0.0-4.0) % Baso % (Auto) 0.2 (0.0-2.0) % Neut # (Auto) 8.4 H (1.8-7.7) th/mm3 Lymph # (Auto) 0.4 L (1.0-4.8) th/mm3 Placer # (Auto) 0.1 (0.0-0.9) th/mm3 Eos # (Auto) 0.0 (0.0-0.4) th/mm3 Baso # (Auto) 0.0 (0.0-0.2) th/mm3 WBC Differential . Differential Comment Auto diff final Puncture Site Patient Temperature O2 Saturation (90-100) % ABG pH (7.380-7.420) ABG pCO2 (38-42) mmHg ABG pO2 (61-120) mmHg ABG HCO3 (22-26) mmol/L ABG O2 Content (12.0-20.0) Vol % ABG Base Excess (-2-2) mmol/L ABG Methemoglobin (0-2) % Karlos Test Hemoglobin (12.0-16.0) G/DL Carboxyhemoglobin (0-4) % O2 Delivery Device Liter Flow L/M Vent Setting Inspired O2 % Critical Value Sodium 140 (136-145) meq/L Potassium 4.4 (3.5-5.1) meq/L Chloride 100 (98-107) meq/L Carbon Dioxide 34.8 H (21.0-32.0) meq/L Anion Gap 5 (5-15) meq/L BUN 35 H (7-18) mg/dL Creatinine 1.16 H (0.50-1.00) mg/dL Estimated GFR 48 L (>89) mL/min POC Glucose 165 H (68-110) mg/dl Random Glucose 162 H (74-106) mg/dL Lactic Acid (0.4-2.0) mmol/L Calcium 8.4 L (8.5-10.1) mg/dL Phosphorus 4.3 D (2.5-4.9) mg/dL Magnesium 2.0 (1.5-2.5) mg/dL Total Bilirubin 0.3 (0.2-1.0) mg/dL AST 12 L (15-37) U/L ALT 23 (10-53) U/L Alkaline Phosphatase 72 (45-117) U/L Troponin I (0.02-0.05) ng/mL Total Protein 6.3 L (6.4-8.2) g/dL Albumin 2.9 L (3.4-5.0) g/dL Nasal Screen MRSA (PCR) (Negative) 02/04/18 02/04/18 02/04/18 Range/Units 12:39 17:21 20:06 WBC (4.0-11.0) th/mm3 RBC (4.00-5.30) mil/mm3 Hgb (11.6-15.3) gm/dL Hct (35.0-46.0) % MCV (80.0-100.0) fL MCH (27.0-34.0) pg MCHC (32.0-36.0) % RDW (11.6-17.2) % Plt Count (150-450) th/mm3 MPV (7.0-11.0) fL Neut % (Auto) (16.0-70.0) % Lymph % (Auto) (9.0-44.0) % Placer % (Auto) (0.0-8.0) % Eos % (Auto) (0.0-4.0) % Baso % (Auto) (0.0-2.0) % Neut # (Auto) (1.8-7.7) th/mm3 Lymph # (Auto) (1.0-4.8) th/mm3 Placer # (Auto) (0.0-0.9) th/mm3 Eos # (Auto) (0.0-0.4) th/mm3 Baso # (Auto) (0.0-0.2) th/mm3 WBC Differential Differential Comment Puncture Site Patient Temperature O2 Saturation (90-100) % ABG pH (7.380-7.420) ABG pCO2 (38-42) mmHg ABG pO2 (61-120) mmHg ABG HCO3 (22-26) mmol/L ABG O2 Content (12.0-20.0) Vol % ABG Base Excess (-2-2) mmol/L ABG Methemoglobin (0-2) % Karlos Test Hemoglobin (12.0-16.0) G/DL Carboxyhemoglobin (0-4) % O2 Delivery Device Liter Flow L/M Vent Setting Inspired O2 % Critical Value Sodium (136-145) meq/L Potassium (3.5-5.1) meq/L Chloride (98-107) meq/L Carbon Dioxide (21.0-32.0) meq/L Anion Gap (5-15) meq/L BUN (7-18) mg/dL Creatinine (0.50-1.00) mg/dL Estimated GFR (>89) mL/min POC Glucose 407 H 372 H 425 H (68-110) mg/dl Random Glucose (74-106) mg/dL Lactic Acid (0.4-2.0) mmol/L Calcium (8.5-10.1) mg/dL Phosphorus (2.5-4.9) mg/dL Magnesium (1.5-2.5) mg/dL Total Bilirubin (0.2-1.0) mg/dL AST (15-37) U/L ALT (10-53) U/L Alkaline Phosphatase (45-117) U/L Troponin I (0.02-0.05) ng/mL Total Protein (6.4-8.2) g/dL Albumin (3.4-5.0) g/dL Nasal Screen MRSA (PCR) (Negative) 02/05/18 02/05/18 02/05/18 Range/Units 05:37 05:51 05:51 WBC 8.3 (4.0-11.0) th/mm3 RBC 5.53 H (4.00-5.30) mil/mm3 Hgb 16.0 H (11.6-15.3) gm/dL Hct 50.9 H (35.0-46.0) % MCV 92.1 (80.0-100.0) fL MCH 28.9 (27.0-34.0) pg MCHC 31.4 L (32.0-36.0) % RDW 16.4 (11.6-17.2) % Plt Count 213 (150-450) th/mm3 MPV 9.3 (7.0-11.0) fL Neut % (Auto) 90.3 H (16.0-70.0) % Lymph % (Auto) 4.9 L (9.0-44.0) % Placer % (Auto) 4.8 (0.0-8.0) % Eos % (Auto) 0.0 (0.0-4.0) % Baso % (Auto) 0.0 (0.0-2.0) % Neut # (Auto) 7.5 (1.8-7.7) th/mm3 Lymph # (Auto) 0.4 L (1.0-4.8) th/mm3 Placer # (Auto) 0.4 (0.0-0.9) th/mm3 Eos # (Auto) 0.0 (0.0-0.4) th/mm3 Baso # (Auto) 0.0 (0.0-0.2) th/mm3 WBC Differential . Differential Comment Auto diff final Puncture Site Right radial Patient Temperature 98.6 O2 Saturation 87 L* (90-100) % ABG pH 7.29 L* (7.380-7.420) ABG pCO2 70 H* (38-42) mmHg ABG pO2 66 (61-120) mmHg ABG HCO3 33 H (22-26) mmol/L ABG O2 Content 20.4 H (12.0-20.0) Vol % ABG Base Excess 6.7 H (-2-2) mmol/L ABG Methemoglobin 1.4 (0-2) % Karlos Test + Hemoglobin 16.6 H (12.0-16.0) G/DL Carboxyhemoglobin 0.8 (0-4) % O2 Delivery Device Nasal cannula Liter Flow 5.00 L/M Vent Setting Inspired O2 40 % Critical Value Yes Sodium 142 (136-145) meq/L Potassium 4.3 (3.5-5.1) meq/L Chloride 103 (98-107) meq/L Carbon Dioxide 32.5 H (21.0-32.0) meq/L Anion Gap 7 (5-15) meq/L BUN 33 H (7-18) mg/dL Creatinine 1.13 H (0.50-1.00) mg/dL Estimated GFR 50 L (>89) mL/min POC Glucose (68-110) mg/dl Random Glucose 145 H (74-106) mg/dL Lactic Acid (0.4-2.0) mmol/L Calcium 8.5 (8.5-10.1) mg/dL Phosphorus 3.6 (2.5-4.9) mg/dL Magnesium 2.2 (1.5-2.5) mg/dL Total Bilirubin 0.4 (0.2-1.0) mg/dL AST 11 L (15-37) U/L ALT 21 (10-53) U/L Alkaline Phosphatase 79 (45-117) U/L Troponin I (0.02-0.05) ng/mL Total Protein 6.0 L (6.4-8.2) g/dL Albumin 2.7 L (3.4-5.0) g/dL Nasal Screen MRSA (PCR) (Negative) 02/05/18 02/05/18 02/05/18 Range/Units 08:50 11:35 16:45 WBC (4.0-11.0) th/mm3 RBC (4.00-5.30) mil/mm3 Hgb (11.6-15.3) gm/dL Hct (35.0-46.0) % MCV (80.0-100.0) fL MCH (27.0-34.0) pg MCHC (32.0-36.0) % RDW (11.6-17.2) % Plt Count (150-450) th/mm3 MPV (7.0-11.0) fL Neut % (Auto) (16.0-70.0) % Lymph % (Auto) (9.0-44.0) % Placer % (Auto) (0.0-8.0) % Eos % (Auto) (0.0-4.0) % Baso % (Auto) (0.0-2.0) % Neut # (Auto) (1.8-7.7) th/mm3 Lymph # (Auto) (1.0-4.8) th/mm3 Placer # (Auto) (0.0-0.9) th/mm3 Eos # (Auto) (0.0-0.4) th/mm3 Baso # (Auto) (0.0-0.2) th/mm3 WBC Differential Differential Comment Puncture Site Patient Temperature O2 Saturation (90-100) % ABG pH (7.380-7.420) ABG pCO2 (38-42) mmHg ABG pO2 (61-120) mmHg ABG HCO3 (22-26) mmol/L ABG O2 Content (12.0-20.0) Vol % ABG Base Excess (-2-2) mmol/L ABG Methemoglobin (0-2) % Karlos Test Hemoglobin (12.0-16.0) G/DL Carboxyhemoglobin (0-4) % O2 Delivery Device Liter Flow L/M Vent Setting Inspired O2 % Critical Value Sodium (136-145) meq/L Potassium (3.5-5.1) meq/L Chloride (98-107) meq/L Carbon Dioxide (21.0-32.0) meq/L Anion Gap (5-15) meq/L BUN (7-18) mg/dL Creatinine (0.50-1.00) mg/dL Estimated GFR (>89) mL/min POC Glucose 164 H 262 H 322 H (68-110) mg/dl Random Glucose (74-106) mg/dL Lactic Acid (0.4-2.0) mmol/L Calcium (8.5-10.1) mg/dL Phosphorus (2.5-4.9) mg/dL Magnesium (1.5-2.5) mg/dL Total Bilirubin (0.2-1.0) mg/dL AST (15-37) U/L ALT (10-53) U/L Alkaline Phosphatase (45-117) U/L Troponin I (0.02-0.05) ng/mL Total Protein (6.4-8.2) g/dL Albumin (3.4-5.0) g/dL Nasal Screen MRSA (PCR) (Negative) 02/05/18 02/05/18 02/06/18 Range/Units 20:15 20:50 04:40 WBC (4.0-11.0) th/mm3 RBC (4.00-5.30) mil/mm3 Hgb (11.6-15.3) gm/dL Hct (35.0-46.0) % MCV (80.0-100.0) fL MCH (27.0-34.0) pg MCHC (32.0-36.0) % RDW (11.6-17.2) % Plt Count (150-450) th/mm3 MPV (7.0-11.0) fL Neut % (Auto) (16.0-70.0) % Lymph % (Auto) (9.0-44.0) % Placer % (Auto) (0.0-8.0) % Eos % (Auto) (0.0-4.0) % Baso % (Auto) (0.0-2.0) % Neut # (Auto) (1.8-7.7) th/mm3 Lymph # (Auto) (1.0-4.8) th/mm3 Placer # (Auto) (0.0-0.9) th/mm3 Eos # (Auto) (0.0-0.4) th/mm3 Baso # (Auto) (0.0-0.2) th/mm3 WBC Differential Differential Comment Puncture Site Patient Temperature O2 Saturation (90-100) % ABG pH (7.380-7.420) ABG pCO2 (38-42) mmHg ABG pO2 (61-120) mmHg ABG HCO3 (22-26) mmol/L ABG O2 Content (12.0-20.0) Vol % ABG Base Excess (-2-2) mmol/L ABG Methemoglobin (0-2) % Karlos Test Hemoglobin (12.0-16.0) G/DL Carboxyhemoglobin (0-4) % O2 Delivery Device Liter Flow L/M Vent Setting Inspired O2 % Critical Value Sodium 140 (136-145) meq/L Potassium 4.4 (3.5-5.1) meq/L Chloride 100 (98-107) meq/L Carbon Dioxide 36.2 H (21.0-32.0) meq/L Anion Gap 4 L (5-15) meq/L BUN 30 H (7-18) mg/dL Creatinine 0.98 (0.50-1.00) mg/dL Estimated GFR 59 L (>89) mL/min POC Glucose 505 H* (68-110) mg/dl Random Glucose 519 H* D 198 H D (74-106) mg/dL Lactic Acid (0.4-2.0) mmol/L Calcium 8.6 (8.5-10.1) mg/dL Phosphorus (2.5-4.9) mg/dL Magnesium (1.5-2.5) mg/dL Total Bilirubin (0.2-1.0) mg/dL AST (15-37) U/L ALT (10-53) U/L Alkaline Phosphatase (45-117) U/L Troponin I (0.02-0.05) ng/mL Total Protein (6.4-8.2) g/dL Albumin (3.4-5.0) g/dL Nasal Screen MRSA (PCR) (Negative) 02/06/18 02/06/18 02/06/18 Range/Units 08:31 12:25 16:53 WBC (4.0-11.0) th/mm3 RBC (4.00-5.30) mil/mm3 Hgb (11.6-15.3) gm/dL Hct (35.0-46.0) % MCV (80.0-100.0) fL MCH (27.0-34.0) pg MCHC (32.0-36.0) % RDW (11.6-17.2) % Plt Count (150-450) th/mm3 MPV (7.0-11.0) fL Neut % (Auto) (16.0-70.0) % Lymph % (Auto) (9.0-44.0) % Placer % (Auto) (0.0-8.0) % Eos % (Auto) (0.0-4.0) % Baso % (Auto) (0.0-2.0) % Neut # (Auto) (1.8-7.7) th/mm3 Lymph # (Auto) (1.0-4.8) th/mm3 Placer # (Auto) (0.0-0.9) th/mm3 Eos # (Auto) (0.0-0.4) th/mm3 Baso # (Auto) (0.0-0.2) th/mm3 WBC Differential Differential Comment Puncture Site Patient Temperature O2 Saturation (90-100) % ABG pH (7.380-7.420) ABG pCO2 (38-42) mmHg ABG pO2 (61-120) mmHg ABG HCO3 (22-26) mmol/L ABG O2 Content (12.0-20.0) Vol % ABG Base Excess (-2-2) mmol/L ABG Methemoglobin (0-2) % Karlos Test Hemoglobin (12.0-16.0) G/DL Carboxyhemoglobin (0-4) % O2 Delivery Device Liter Flow L/M Vent Setting Inspired O2 % Critical Value Sodium (136-145) meq/L Potassium (3.5-5.1) meq/L Chloride (98-107) meq/L Carbon Dioxide (21.0-32.0) meq/L Anion Gap (5-15) meq/L BUN (7-18) mg/dL Creatinine (0.50-1.00) mg/dL Estimated GFR (>89) mL/min POC Glucose 207 H 246 H 301 H (68-110) mg/dl Random Glucose (74-106) mg/dL Lactic Acid (0.4-2.0) mmol/L Calcium (8.5-10.1) mg/dL Phosphorus (2.5-4.9) mg/dL Magnesium (1.5-2.5) mg/dL Total Bilirubin (0.2-1.0) mg/dL AST (15-37) U/L ALT (10-53) U/L Alkaline Phosphatase (45-117) U/L Troponin I (0.02-0.05) ng/mL Total Protein (6.4-8.2) g/dL Albumin (3.4-5.0) g/dL Nasal Screen MRSA (PCR) (Negative) 02/06/18 02/07/18 02/07/18 Range/Units 21:32 06:03 06:03 WBC 8.3 (4.0-11.0) th/mm3 RBC 5.72 H (4.00-5.30) mil/mm3 Hgb 17.0 H (11.6-15.3) gm/dL Hct 51.7 H (35.0-46.0) % MCV 90.4 (80.0-100.0) fL MCH 29.7 (27.0-34.0) pg MCHC 32.9 (32.0-36.0) % RDW 16.0 (11.6-17.2) % Plt Count 228 (150-450) th/mm3 MPV 8.7 (7.0-11.0) fL Neut % (Auto) (16.0-70.0) % Lymph % (Auto) (9.0-44.0) % Placer % (Auto) (0.0-8.0) % Eos % (Auto) (0.0-4.0) % Baso % (Auto) (0.0-2.0) % Neut # (Auto) (1.8-7.7) th/mm3 Lymph # (Auto) (1.0-4.8) th/mm3 Placer # (Auto) (0.0-0.9) th/mm3 Eos # (Auto) (0.0-0.4) th/mm3 Baso # (Auto) (0.0-0.2) th/mm3 WBC Differential Differential Comment Puncture Site Patient Temperature O2 Saturation (90-100) % ABG pH (7.380-7.420) ABG pCO2 (38-42) mmHg ABG pO2 (61-120) mmHg ABG HCO3 (22-26) mmol/L ABG O2 Content (12.0-20.0) Vol % ABG Base Excess (-2-2) mmol/L ABG Methemoglobin (0-2) % Karlos Test Hemoglobin (12.0-16.0) G/DL Carboxyhemoglobin (0-4) % O2 Delivery Device Liter Flow L/M Vent Setting Inspired O2 % Critical Value Sodium 141 (136-145) meq/L Potassium 4.2 (3.5-5.1) meq/L Chloride 98 (98-107) meq/L Carbon Dioxide 39.0 H (21.0-32.0) meq/L Anion Gap 4 L (5-15) meq/L BUN 25 H (7-18) mg/dL Creatinine 0.83 (0.50-1.00) mg/dL Estimated GFR 71 L (>89) mL/min POC Glucose 237 H (68-110) mg/dl Random Glucose 193 H (74-106) mg/dL Lactic Acid (0.4-2.0) mmol/L Calcium 8.8 (8.5-10.1) mg/dL Phosphorus (2.5-4.9) mg/dL Magnesium (1.5-2.5) mg/dL Total Bilirubin (0.2-1.0) mg/dL AST (15-37) U/L ALT (10-53) U/L Alkaline Phosphatase (45-117) U/L Troponin I (0.02-0.05) ng/mL Total Protein (6.4-8.2) g/dL Albumin (3.4-5.0) g/dL Nasal Screen MRSA (PCR) (Negative) 02/07/18 Range/Units 08:09 WBC (4.0-11.0) th/mm3 RBC (4.00-5.30) mil/mm3 Hgb (11.6-15.3) gm/dL Hct (35.0-46.0) % MCV (80.0-100.0) fL MCH (27.0-34.0) pg MCHC (32.0-36.0) % RDW (11.6-17.2) % Plt Count (150-450) th/mm3 MPV (7.0-11.0) fL Neut % (Auto) (16.0-70.0) % Lymph % (Auto) (9.0-44.0) % Placer % (Auto) (0.0-8.0) % Eos % (Auto) (0.0-4.0) % Baso % (Auto) (0.0-2.0) % Neut # (Auto) (1.8-7.7) th/mm3 Lymph # (Auto) (1.0-4.8) th/mm3 Placer # (Auto) (0.0-0.9) th/mm3 Eos # (Auto) (0.0-0.4) th/mm3 Baso # (Auto) (0.0-0.2) th/mm3 WBC Differential Differential Comment Puncture Site Patient Temperature O2 Saturation (90-100) % ABG pH (7.380-7.420) ABG pCO2 (38-42) mmHg ABG pO2 (61-120) mmHg ABG HCO3 (22-26) mmol/L ABG O2 Content (12.0-20.0) Vol % ABG Base Excess (-2-2) mmol/L ABG Methemoglobin (0-2) % Karlos Test Hemoglobin (12.0-16.0) G/DL Carboxyhemoglobin (0-4) % O2 Delivery Device Liter Flow L/M Vent Setting Inspired O2 % Critical Value Sodium (136-145) meq/L Potassium (3.5-5.1) meq/L Chloride (98-107) meq/L Carbon Dioxide (21.0-32.0) meq/L Anion Gap (5-15) meq/L BUN (7-18) mg/dL Creatinine (0.50-1.00) mg/dL Estimated GFR (>89) mL/min POC Glucose 162 H (68-110) mg/dl Random Glucose (74-106) mg/dL Lactic Acid (0.4-2.0) mmol/L Calcium (8.5-10.1) mg/dL Phosphorus (2.5-4.9) mg/dL Magnesium (1.5-2.5) mg/dL Total Bilirubin (0.2-1.0) mg/dL AST (15-37) U/L ALT (10-53) U/L Alkaline Phosphatase (45-117) U/L Troponin I (0.02-0.05) ng/mL Total Protein (6.4-8.2) g/dL Albumin (3.4-5.0) g/dL Nasal Screen MRSA (PCR) (Negative) Imaging Data Radiologist's impression: Chest X-Ray 02/01/18 15:42 CONCLUSION: Radiographic findings consistent with congestive heart failure or volume overload. Chest CTA 02/01/18 15:47 CONCLUSION: 1. No evidence of pulmonary embolism. 2. Fibrotic scarring within the left upper lobe. 3. 4 mm noncalcified nodule within the right upper lobe. Follow-up CT of the chest in 12 months is recommended according to Fleischner Society guidelines. 4. No evidence disease involving left hilum and left lower lobe. 5. Cardiomegaly. 6. Tiny pericardial effusion. Venous Doppler Study 02/01/18 15:47 CONCLUSION: 1. The study is negative for lower extremity deep venous thrombosis. Chest X-Ray 02/03/18 00:00 CONCLUSION: Increasing consolidation in the central lungs bilaterally, left upper, and left lower lobes. Chest X-Ray 02/04/18 06:00 CONCLUSION: Persistent consolidative infiltrates in both lungs, left greater than right. Chest X-Ray 02/05/18 06:00 CONCLUSION: Bilateral perihilar airspace disease. No effusion or pneumothorax. Discharge Plan Discharge Disposition Patient Disposition: 30 Still Patient Physicians Team ED Provider: Nasir Mueller Primary Care Provider: UNKNOWN, Attending Provider: Cristopher Vallejo Other Providers: Rodolfo Naranjo Eric G Status ED Status: Left Department Discharge Information Discharge Date/Time: 02/01/18 21:35
--- NOTE | 2018-02-01 17:18 | US ---
EXAM DATE: 02/01/2018 5:14 PM EDT AGE/SEX: 57 years / Female INDICATIONS: Left leg swelling. CLINICAL DATA: This is the patient's initial encounter. Patient reports that signs and symptoms have been present for 2 weeks and indicates a pain score of 6/10. MEDICAL/SURGICAL HISTORY: Chronic obstructive pulmonary disease. Congestive heart failure. Diab etes. section. COMPARISON: No prior exams available for comparison. TECHNIQUE: Venous ultrasound of both lower extremities was performed from the inguinal ligament to t he proximal calf. Real-time, color Doppler and spectral tracing, compression and augmentation techni ques were used. FINDINGS: Normal compression of the deep venous system from the inguinal region to the proximal calf . No echogenic clot is seen. Normal response of the venous system to augmentation and respiration. CONCLUSION: 1. The study is negative for lower extremity deep venous thrombosis. Electronically signed by: Ewelina Rodriguez MD 02/01/2018 5:16 PM EDT
[2018-02-01 17:59] LABS: ABG Base Excess 8.1 mmol/L (-2-2); ABG PCO2 66 mmHg (38-42); ABG PO2 59 mmHg (61-120)
--- NOTE | 2018-02-01 18:17 | CT ---
EXAM DATE: 02/01/2018 6:06 PM EDT AGE/SEX: 57 years / Female INDICATIONS: Shortness of breath, chest pain, and cough for three weeks. CLINICAL DATA: This is the patient's initial encounter. Patient reports that signs and symptoms have been present for 3 weeks and indicates a pain score of 4/10. MEDICAL/SURGICAL HISTORY: Congestive heart failure. Chronic obstructive pulmonary disease. Diabet es. None. RADIATION DOSE: 10.55 CTDI (mGy) COMPARISON: No prior exams available for comparison. TECHNIQUE: Volumetric scanning was performed using a multi-row detector CT scanner during bolus infu kirk of 75 ml Omnipaque 350 (iohexol) nonionic water-soluble contrast as a single exam dose. The karen a was post processed with a variety of visualization algorithms including full volume maximum intensi ty projection and sliding thin slab reformation. Using automated exposure control and adjustment of t he mA and/or kV according to patient size, radiation dose was kept as low as reasonably achievable to obtain optimal diagnostic quality images. DICOM format image data is available electronically for r eview and comparison. FINDINGS: Pulmonary Arteries: No filling defects are seen in the pulmonary arteries out to the subsegmental ve ssels. The left and right pulmonary arteries are normal in diameter. Lung: Granulomatous disease is noted involving the left hilum and left lower lobe. Fibrotic scarring is noted within the left upper lobe. There is a 4 mm noncalcified nodule within the right upper lobe . Follow-up CT of the chest in 12 months is recommended according to Fleischner Society guidelines. N o focal infiltrate or congestion is noted. Effusion: None. Mediastinum: No evidence of mediastinal or hilar adenopathy. The heart is enlarged. Tiny pericardial effusion is noted. Other: The axilla is unremarkable. CONCLUSION: 1. No evidence of pulmonary embolism. 2. Fibrotic scarring within the left upper lobe. 3. 4 mm noncalcified nodule within the right upper lobe. Follow-up CT of the chest in 12 months is r ecommended according to Fleischner Society guidelines. 4. No evidence disease involving left hilum and left lower lobe. 5. Cardiomegaly. 6. Tiny pericardial effusion. Electronically signed by: Jose Manuel Yates MD 02/01/2018 6:15 PM EDT
[2018-02-01] MEDS ORDERED: Potassium Chlor 40 mEq Premix 40 MEQ/100 ML PIGGYBACK IV.SIG PRN ×2 (19:40)
[2018-02-01] MEDS ORDERED: Potassium Chloride 25 MEQ Effervescent Tablet PO PRN (19:40)
[2018-02-01] MEDS ORDERED: Magnesium Sulfate Inj 2 GM in Sodium Chlor 0.9% Inj 96 ML IV.SIG PRN (19:40)
[2018-02-01] MEDS ORDERED: Bisacodyl 10 MG Supp RECTAL PRN (19:40)
[2018-02-01] MEDS ORDERED: Potassium Chlor 20 mEq Premix 20 MEQ/100 ML PIGGYBACK IV.SIG PRN ×2 (19:40)
[2018-02-01] MEDS ORDERED: Potassium Phosphate Inj 30 MMOL in Sodium Chlor 0.9% Inj 250 ML IV.SIG PRN (19:40)
[2018-02-01] MEDS ORDERED: Potassium Phosphate 500 MG Soluble Tablet PO PRN ×2 (19:40)
[2018-02-01] MEDS ORDERED: Sodium Phosphate Inj 30 MMOL in Sodium Chlor 0.9% Inj 250 ML IV.SIG PRN (19:40)
[2018-02-01] MEDS ORDERED: Magnesium Oxide 400 MG Tablet PO PRN (19:40)
[2018-02-01] MEDS ORDERED: Magnesium Sulfate Inj 4 GM in Sodium Chlor 0.9% Inj 92 ML IV.SIG PRN (19:40)
[2018-02-01] MEDS ORDERED: Acetaminophen 325 MG Tablet PO PRN (19:40)
--- NOTE | 2018-02-01 19:47 | P.HPCC ---
History of Present Illness Service: Critical care medicine Primary Care Physician: UNKNOWN Chief Complaint: fatigue, sob History of Present Illness: 57yF with history of o2 dependent copd (4LPM continuously, but patient states she doesn't always wear it, only when she feels like she needs it). She presents with 4 weeks of progressive shortness of breath and fatigue. she denies fever, chills. denies new or differing sputum production. she continues to smoke. in the ER was found to be hypoxic, hypercarbic, respiratory acidosis. CTA chest negative for PE. no new symptoms other than her fatigue. ROS negative for chest pain, headache, f/c, cough, sputum production, runny nose, congestion , n/v/c/d/abd pain. she was increasingly somnolent in the ER and was placed on BiPAP with improvement of her symptoms. ROS is otherwise negative unless stated above. Inpatient Certification: I certify that the inpatient services were ordered in accordance with Medicare regulations governing the order. This includes certification that hospital inpatient services are reasonable and necessary and in the case of services not specified as inpatient-only under 42 CFR 419.22(n), that they are appropriately provided as inpatient services in accordance to with the 2-midnight benchmark under 43 CFR 412.3(e) Estimated Total Length of Stay (Days): 7 Plans for Post Hospital Care: Not yet determined PMFSH - History History Provided By: Patient - Medical History Medical History: Medical History (Last Updated 02/01/18 @ 15:56 by Rylie Jaimes) CHF (congestive heart failure) COPD (chronic obstructive pulmonary disease) Diabetes - Family History Family History: Family History (Last Updated 02/01/18 @ 20:58 by Kwasi Maldonado MD) Other Family history non-contributory - Social History I have reviewed the patient's Social History: Yes - Tobacco History Second Hand Smoke Exposure: Yes Tobacco Use In Past 30 Days: Yes Smoking Status: Current every day smoker Tobacco Type: Cigarettes - Alcohol History How Often Do You Have a Drink Containing Alcohol: 2 to 3 times a week - Substance Use History Substance History: Past History - Travel History Recent Travel in the [place] Within the Last 8 Weeks: No Recent Travel Out of the Country Within the Last 8 Weeks: No - Immunization History Tetanus Immunization: Unsure Medications and Allergies Active Medications: Active Medications Acetaminophen (Tylenol) 650 mg PO Q6H PRN PRN Reason: TEMPERATURE > 101 F Albuterol (Duoneb Neb (Prn)) 1 ampul NEB Q2HR NEB PRN PRN Reason: WHEEZING Albuterol (Duoneb Neb (Jose)) 1 ampul NEB Q4HR NEB JOSE Bisacodyl (Dulcolax Supp) 10 mg RECTAL DAILY PRN PRN Reason: if no BM in last 24h Chlorhexidine Gluconate (Chlorhexidine 2% Cloth) 3 pack TOPICAL DAILY@0400 PRN PRN Reason: Extra cloth needed Stop: 02/07/18 03:59 Chlorhexidine Gluconate (Chlorhexidine 2% Cloth) 3 pack TOPICAL DAILY@0400 JOSE Stop: 02/07/18 03:59 Dextrose (D50w Syringe) 50 ml IV.PUSH UNSCH PRN PRN Reason: PER HYPOGLYCEMIA PROTOCOL Enoxaparin Sodium (Lovenox Inj) 40 mg SQ DAILY JOSE Famotidine (Pepcid) 20 mg PO BID JOSE Glucagon (Glucagon Inj) 1 mg IM ONCE PRN PRN Reason: blood sugar < 60, no iv access Magnesium Sulfate Inj 4 gm/ (Sodium Chloride) 100 mls @ 50 mls/hr IV.SIG UNSCH PRN PRN Reason: For Magnesium 0.9 - 1.1 mg/dL Magnesium Sulfate Inj 2 gm/ (Sodium Chloride) 100 mls @ 50 mls/hr IV.SIG UNSCH PRN PRN Reason: For Magnesium 1.2 - 1.6 mg/dL Potassium Chloride (Kcl 40 Meq Premix Inj) 40 meq in 100 mls @ 25 mls/hr IV.SIG Q2H PRN PRN Reason: For Potassium 2.8 - 3.2 mEq/L Potassium Chloride (Kcl 20 Meq Premix Inj) 20 meq in 100 mls @ 50 mls/hr IV.SIG Q2H PRN PRN Reason: For Potassium 3.3 - 3.5 mEq/L Potassium Chloride (Kcl 40 Meq Premix Inj) 40 meq in 100 mls @ 25 mls/hr IV.SIG UNSCH PRN PRN Reason: For Potassium 3.3 - 3.5 mEq/L Potassium Phosphate 30 mmol/ (Sodium Chloride) 260 mls @ 42 mls/hr IV.SIG UNSCH PRN PRN Reason: SEE LABEL COMMENTS Sodium Phosphate 30 mmol/ (Sodium Chloride) 260 mls @ 42 mls/hr IV.SIG UNSCH PRN PRN Reason: For Phosphorus < 2.5 mg/dL Potassium Chloride (Kcl 20 Meq Premix Inj) 20 meq in 100 mls @ 50 mls/hr IV.SIG Q2H PRN PRN Reason: For Potassium 2.8 - 3.2 mEq/L Insulin Human Regular (Novolin R Inj) 1 units SQ Q6HR JOSE; Protocol Lactulose (Lactulose Liq) 30 ml PO BID JOSE Magnesium Oxide (Mag-Ox) 800 mg PO UNSCH PRN PRN Reason: For Magnesium 1.2 - 1.6 mg/dL Methylprednisolone Sodium Succinate (Solumedrol Inj) 60 mg IV.PUSH Q8H JOSE Ondansetron HCl (Zofran Inj) 4 mg IV.PUSH Q6H PRN PRN Reason: NAUSEA OR VOMITING Polyethylene Glycol (Miralax) 17 gm PO BID JOSE Potassium Bicarb/Potassium Chloride (K-Lyte Cl Eff) 50 meq PO UNSCH PRN PRN Reason: For Potassium 3.3 - 3.5 mEq/L Potassium Phosphate (K-Phos Original) 2,000 mg PO Q4H PRN PRN Reason: Phosphorus Less Than 2.5 mg/dL Potassium Phosphate (K-Phos Original) 2,000 mg PO UNSCH PRN PRN Reason: SEE LABEL COMMENTS Senna/Docusate Sodium (Angela-Colace) 1 tab PO BID JOSE Sodium Chloride (Ns Flush) 2 ml IV.FLUSH UNSCH PRN PRN Reason: FLUSH AFTER USING IV ACCESS Sodium Chloride (Ns Flush) 2 ml IV.FLUSH UNSCH PRN PRN Reason: FLUSH AFTER USING IV ACCESS Allergies Allergy/AdvReac Type Severity Reaction Status Date / Time azithromycin Allergy Severe RASH Verified 02/01/18 15:54 divalproex sodium Allergy Severe SWELLS UP Verified 02/01/18 15:54 *MDRO Multi-Drug Resistant AdvReac Unknown Abdominal Uncoded 02/01/18 15:54 Organism Pain Home Medications Medication Instructions Recorded Confirmed Type carvedilol 12.5 mg PO BID 02/01/18 02/01/18 History furosemide 40 mg PO DAILY 02/01/18 02/01/18 History gabapentin [Neurontin] 800 mg PO TID 02/01/18 02/01/18 History insulin glargine [Lantus U-100 30 unit SUB-Q HS 02/01/18 02/01/18 History Insulin] ipratropium bromide [Atrovent HFA] 1 puff INHALATION Q6H 02/01/18 02/01/18 History lisinopril 40 mg PO DAILY 02/01/18 02/01/18 History metformin 500 mg PO DAILY 02/01/18 02/01/18 History montelukast [Singulair] 10 mg PO QPM 02/01/18 02/01/18 History nebulizers 02/01/18 02/01/18 History omeprazole 20 mg PO DAILY 02/01/18 02/01/18 History potassium chloride 10 meq PO ONCE 02/01/18 02/01/18 History Results - Labs CBC & Chem 7: 02/01/18 15:45 02/01/18 15:45 Labs: Short CBC 02/01/18 Range/Units 15:45 WBC 7.0 (4.0-11.0) th/mm3 Hgb 15.7 H (11.6-15.3) gm/dL Hct 49.6 H (35.0-46.0) % Plt Count 221 (150-450) th/mm3 BMP 02/01/18 15:45 Sodium 144 Potassium 4.6 Chloride 106 Carbon Dioxide 32.6 H BUN 23 H Creatinine 0.87 Calcium 8.3 L Cardiac Enzymes 02/01/18 Range/Units 15:45 Troponin I 0.03 (0.02-0.05) ng/mL Liver Function 02/01/18 Range/Units 15:45 Total Bilirubin 0.2 (0.2-1.0) mg/dL AST 19 (15-37) U/L ALT 30 (10-53) U/L Alkaline Phosphatase 91 (45-117) U/L Albumin 2.8 L (3.4-5.0) g/dL - Imaging Impressions Chest X-Ray 02/01/18 15:42 CONCLUSION: Radiographic findings consistent with congestive heart failure or volume overload. Chest CTA 02/01/18 15:47 CONCLUSION: 1. No evidence of pulmonary embolism. 2. Fibrotic scarring within the left upper lobe. 3. 4 mm noncalcified nodule within the right upper lobe. Follow-up CT of the chest in 12 months is recommended according to Fleischner Society guidelines. 4. No evidence disease involving left hilum and left lower lobe. 5. Cardiomegaly. 6. Tiny pericardial effusion. Venous Doppler Study 02/01/18 15:47 CONCLUSION: 1. The study is negative for lower extremity deep venous thrombosis. Exam Vital signs: Vital Signs 02/01/18 15:50 02/01/18 15:55 02/01/18 16:43 Temperature 37.1 C Pulse Rate 80 87 Respiratory Rate 20 25 H Blood Pressure 210/116 H Pulse Oximetry 93 L 93 L 02/01/18 17:26 02/01/18 18:30 02/01/18 18:46 Temperature Pulse Rate 80 Respiratory Rate 20 Blood Pressure 183/105 H Pulse Oximetry 94 L 93 L 94 L Intake & Output 02/01/18 02/01/18 02/02/18 06:59 18:59 06:59 Weight 90.718 kg Narrative: gen: middle-aged female, lying in bed, BiPAP in place heent: nc. at. perr. mmm. neck: no jvd. trachea midline. chest: equal. unlabored. +exp wheezing. bipap fio2 50%. when she takes bipap off , spo2 87% on room air. cv: normal rate, regular rhythm. sinus. abd: soft, nontender, nondistended. no guarding. extr: distal pulses 2+. no edema. neuro: RASS 0, although on my exam, she took her BiPAP off for approximately 5 minutes and does become quite somnolent to a RASS -2 off BiPAP. quickly awakens when placed back on BiPAP. moves all extremities with 5/5 strength. no focal deficits. Septic Shock Reassessment Septic shock perfusion: reassessment completed Caprini VTE Risk Assessment Caprini VTE Risk Assessment: Moderate/High Risk (score >= 2) Caprini Risk Assessment Model: Point Value = 1 Point Value = 2 Point Value = 3 Point Value = 5 Age 41-60 Minor surgery BMI > 25 kg/m2 Swollen legs Varicose veins or History of unexplained or recurrent spontaneous Oral contraceptives or hormone replacement Sepsis (< 1 month) Serious lung disease, including pneumonia (< 1 month) Abnormal pulmonary function Acute myocardial infarction Congestive heart failure (< 1 month) History of inflammatory bowel disease Medical patient at bed rest Age 61-74 Arthroscopic surgery Major open surgery (> 45 min) Laparoscopic surgery (> 45 min) Malignancy Confined to bed (> 72 hours) Immobilizing plaster cast Central venous access Age >= 75 History of VTE Family history of VTE Factor V Leiden Prothrombin [id number] Lupus anticoagulant Anticardiolipin antibodies Elevated serum homocysteine Heparin-induced thrombocytopenia Other congenital or acquired thrombophilia Stroke (< 1 month) Elective arthroplasty Hip, pelvis, or leg fracture Acute spinal cord injury (< 1 month) Prophylaxis Regimen: Total Risk Factor Score Risk Level Prophylaxis Regimen 0-1 Low Early ambulation 2 Moderate Order ONE of the following: *Sequential Compression Device (SCD) *Heparin 5000 units SQ BID 3-4 Higher Order ONE of the following medications: *Heparin 5000 units SQ TID *Enoxaparin/Lovenox 40 mg SQ daily (WT < 150 kg, CrCl > 30 mL/min) *Enoxaparin/Lovenox 30 mg SQ daily (WT < 150 kg, CrCl > 10-29 mL/min) *Enoxaparin/Lovenox 30 mg SQ BID (WT < 150 kg, CrCl > 30 mL/min) AND/OR *Sequential Compression Device (SCD) 5 or more Highest Order ONE of the following medications: *Heparin 5000 units SQ TID (Preferred with Epidurals) *Enoxaparin/Lovenox 40 mg SQ daily (WT < 150 kg, CrCl > 30 mL/min) *Enoxaparin/Lovenox 30 mg SQ daily (WT < 150 kg, CrCl > 10-29 mL/min) *Enoxaparin/Lovenox 30 mg SQ BID (WT < 150 kg, CrCl > 30 mL/min) AND *Sequential Compression Device (SCD) Assessment and Plan - Assessment and Plan Plan: Assessment: 57yF with severe acute COPD exacerbation and associated acute hypoxic and hypercarbic respiratory failure. This does not appear to be infectious in etiology. Certainly her persistence of tobacco abuse and her noncompliance with her oxygen therapy could be exacerbating her illness. Admit to ICU for NIPPV. Acute Severe COPD exacerbation superimposed on severe o2 dependent COPD Acute hypoxic and hypercarbic respiratory failure requiring NIPPV Acute metabolic encephalopathy secondary to hypercarbic CO2 Narcosis Ongoing Tobacco Abuse BiPAP steroids daily ABG wean fio2 for goal spo2 > 90% pulm consult if fevers or elevated wbc, would empirically cover with Levaquin, but currently does not have any signs or symptoms suggestive of infectious etiology again counseled patient on smoking cessation frequent neuro checks avoid long-acting sedatives Lovenox, SCDs Pepcid Admit to ICU.
[2018-02-01 21:32] LABS: ABG Base Excess 8.5 mmol/L (-2-2); ABG PCO2 70 mmHg (38-42); ABG PO2 91 mmHG (61-120)
[2018-02-01] MEDS: MethylPREDNISolone Sod Succinate Inj 125 MG/2 ML Vial IV.PUSH SCH (21:48)
[2018-02-01] MEDS: Enoxaparin Inj 40 MG/0.4 ML Syringe SQ SCH (21:49)
[2018-02-01] MEDS: Carvedilol 12.5 MG Tablet PO SCH (21:49)
[2018-02-01] MEDS: Polyethylene Glycol 3350 17 GM Packet PO SCH (21:49)
[2018-02-01] MEDS: Insulin Detemir Inj 1,000 UNIT/10 ML Vial SQ SCH (21:50)
[2018-02-01] MEDS: Senna/Docusate Sodium 8.6/50 MG Tablet PO SCH (21:50)
[2018-02-01] MEDS: Famotidine 20 MG Tablet PO SCH (21:50)
[2018-02-02] MEDS: Chlorhexidine Gluconate 2% 1 Pack (2 Cloths) TOPICAL SCH (03:35)
[2018-02-02] MEDS ORDERED: Chlorhexidine Gluconate 2% 1 Pack (2 Cloths) TOPICAL PRN (04:00)
[2018-02-02] MEDS: MethylPREDNISolone Sod Succinate Inj 125 MG/2 ML Vial IV.PUSH SCH ×3 (05:33→20:33)
[2018-02-02 05:45] LABS: ABG Base Excess 8.5 mmol/L (-2-2); ABG PCO2 80 mmHg (38-42); ABG PO2 70 mmHG (61-120)
[2018-02-02 06:10] LABS: Baso % (Auto) 0.3 % (0.0-2.0); Hematocrit 51.8 % (35.0-46.0); Hemoglobin 16.3 gm/dL (11.6-15.3); Lymph # (Auto) 0.5 th/mm3 (1.0-4.8); Mean Corpuscular HGB Conc 31.5 % (32.0-36.0); Mean Corpuscular Volume 92.1 fL (80.0-100.0); Mean Platelet Volume 9.9 fL (7.0-11.0); Mono # (Auto) 0.1 th/mm3 (0.0-0.9); Mono % (Auto) 1.1 % (0.0-8.0); Neut % (Auto) 89.6 % (16.0-70.0); Platelet Count 225 th/mm3 (150-450); Red Blood Count 5.63 mil/mm3 (4.00-5.30); Red Cell Distribution Width 16.5 % (11.6-17.2); White Blood Count 5.5 th/mm3 (4.0-11.0)
[2018-02-02 06:42] LABS: Calcium 8.3 mg/dL (8.5-10.1); Magnesium 1.8 mg/dL (1.5-2.5); Phosphorus 4.9 mg/dL (2.5-4.9); Potassium 4.4 meq/L (3.5-5.1)
[2018-02-02 08:29] LABS: ABG PCO2 74 mmHg (38-42); ABG PO2 73 mmHG (61-120)
[2018-02-02] MEDS: Carvedilol 12.5 MG Tablet PO SCH ×2 (08:51→20:34)
[2018-02-02] MEDS: Polyethylene Glycol 3350 17 GM Packet PO SCH ×2 (08:51→20:51)
[2018-02-02] MEDS: Lisinopril 20 MG Tablet PO SCH (08:51)
[2018-02-02] MEDS: Famotidine 20 MG Tablet PO SCH ×2 (08:51→20:33)
[2018-02-02] MEDS: Furosemide 40 MG Tablet PO SCH (08:51)
[2018-02-02] MEDS: Gabapentin 400 MG Capsule PO SCH ×3 (08:51→17:08)
[2018-02-02] MEDS: Senna/Docusate Sodium 8.6/50 MG Tablet PO SCH ×2 (08:52→20:51)
--- NOTE | 2018-02-02 09:00 | P.PNCC ---
Subjective Subjective Remarks/Hospital Course: 57yF with history of o2 dependent copd (4LPM continuously, but patient states she doesn't always wear it, only when she feels like she needs it). She presents with 4 weeks of progressive shortness of breath and fatigue. she denies fever, chills. denies new or differing sputum production. she continues to smoke. in the ER was found to be hypoxic, hypercarbic, respiratory acidosis. CTA chest negative for PE. no new symptoms other than her fatigue. ROS negative for chest pain, headache, f/c, cough, sputum production, runny nose, congestion , n/v/c/d/abd pain. she was increasingly somnolent in the ER and was placed on BiPAP with improvement of her symptoms. ROS is otherwise negative unless stated above. 02/02 Patient is awake and alert on BIPAP 13/01 with 65%FIO2. ABG this morning showed improvements in her resp acidosis. Afebrile. Awake and alert. Objective Vital Signs / I&O: Vital Signs 02/01/18 15:50 02/01/18 15:55 02/01/18 16:43 Temperature 98.8 F Pulse Rate 80 87 Respiratory Rate 20 25 H Blood Pressure 210/116 H Pulse Oximetry 93 L 93 L 02/01/18 17:26 02/01/18 18:30 02/01/18 18:46 Temperature Pulse Rate 80 Respiratory Rate 20 Blood Pressure 183/105 H Pulse Oximetry 94 L 93 L 94 L 02/01/18 19:00 02/01/18 20:00 02/01/18 21:20 Temperature Pulse Rate 84 89 Respiratory Rate 24 24 Blood Pressure 176/101 H Pulse Oximetry 95 95 90 L 02/01/18 22:05 02/01/18 22:40 02/01/18 23:00 Temperature 97.5 F L Pulse Rate 77 98 H Respiratory Rate 24 33 H Blood Pressure 161/74 H Pulse Oximetry 89 L 91 L 84 L 02/01/18 23:05 02/01/18 23:53 02/02/18 00:00 Temperature 98.3 F Pulse Rate 87 73 72 Respiratory Rate 36 H 28 H 36 H Blood Pressure 124/70 128/61 Pulse Oximetry 89 L 91 L 02/02/18 01:00 02/02/18 01:17 02/02/18 02:00 Temperature Pulse Rate 80 69 Respiratory Rate 37 H 49 H Blood Pressure 137/71 147/69 H Pulse Oximetry 90 L 93 L 95 02/02/18 03:00 02/02/18 03:29 02/02/18 03:51 Temperature Pulse Rate 78 64 Respiratory Rate 44 H 24 Blood Pressure 170/77 H Pulse Oximetry 89 L 91 L 02/02/18 04:00 02/02/18 06:38 02/02/18 08:00 Temperature 98.1 F 98.1 F Pulse Rate 67 79 Respiratory Rate 25 H 27 H Blood Pressure 144/67 H 159/85 H Pulse Oximetry 89 L 94 L 93 L 02/02/18 08:29 Temperature Pulse Rate 63 Respiratory Rate 29 H Blood Pressure Pulse Oximetry Intake & Output 02/01/18 02/02/18 02/02/18 18:59 06:59 18:59 Intake Total Balance Weight 90.718 kg 103.8 kg Intake: Oral Other: # Voids 1 Date of Last Bowel Movement 02/02/18 # Bowel Movements 1 Weight On Admission 90.718 kg Result Diagrams: 02/02/18 05:22 02/02/18 05:22 Other Results: Laboratory Results - last 12 hr 02/01/18 02/01/18 02/02/18 21:14 21:38 00:11 WBC RBC Hgb Hct MCV MCH MCHC RDW Plt Count MPV Neut % (Auto) Lymph % (Auto) [place] % (Auto) Eos % (Auto) Baso % (Auto) Neut # (Auto) Lymph # (Auto) [place] # (Auto) Eos # (Auto) Baso # (Auto) WBC Differential Differential Comment Puncture Site Left radial Patient Temperature 98.6 O2 Saturation 91 ABG pH 7.32 L ABG pCO2 70 H* ABG pO2 91 ABG HCO3 35 H ABG O2 Content 21.2 H ABG Base Excess 8.5 H ABG Methemoglobin 1.6 Karlos Test Present Hemoglobin 16.6 H Carboxyhemoglobin 4.3 H O2 Delivery Device Bipap Liter Flow Vent Setting Ipap12/epap5 Inspired O2 50 Critical Value Yes Sodium Potassium Chloride Carbon Dioxide Anion Gap BUN Creatinine Estimated GFR POC Glucose 319 H Random Glucose Calcium Phosphorus Magnesium Nasal Screen MRSA (PCR) Mrsa detected 09/07/18 09/07/18 09/07/18 05:20 05:22 05:22 WBC 5.5 RBC 5.63 H Hgb 16.3 H Hct 51.8 H MCV 92.1 MCH 29.0 MCHC 31.5 L RDW 16.5 Plt Count 225 MPV 9.9 Neut % (Auto) 89.6 H Lymph % (Auto) 9.0 [place] % (Auto) 1.1 Eos % (Auto) 0.0 Baso % (Auto) 0.3 Neut # (Auto) 5.0 Lymph # (Auto) 0.5 L [place] # (Auto) 0.1 Eos # (Auto) 0.0 Baso # (Auto) 0.0 WBC Differential . Differential Comment Auto diff final Puncture Site Patient Temperature O2 Saturation ABG pH ABG pCO2 ABG pO2 ABG HCO3 ABG O2 Content ABG Base Excess ABG Methemoglobin Karlos Test Hemoglobin Carboxyhemoglobin O2 Delivery Device Liter Flow Vent Setting Inspired O2 Critical Value Sodium 142 Potassium 4.4 Chloride 101 Carbon Dioxide 35.0 H Anion Gap 6 BUN 20 H Creatinine 0.87 Estimated GFR 67 L POC Glucose 207 H Random Glucose 217 H Calcium 8.3 L Phosphorus 4.9 Magnesium 1.8 Nasal Screen MRSA (PCR) 02/02/18 02/02/18 05:28 08:09 WBC RBC Hgb Hct MCV MCH MCHC RDW Plt Count MPV Neut % (Auto) Lymph % (Auto) [place] % (Auto) Eos % (Auto) Baso % (Auto) Neut # (Auto) Lymph # (Auto) [place] # (Auto) Eos # (Auto) Baso # (Auto) WBC Differential Differential Comment Puncture Site Right radial Right radial Patient Temperature 98.6 98.6 O2 Saturation 88 L* 90 ABG pH 7.27 L* 7.30 L ABG pCO2 80 H* 74 H* ABG pO2 70 73 ABG HCO3 35 H 35 H ABG O2 Content 20.2 H 20.8 H ABG Base Excess 8.5 H 9.0 H ABG Methemoglobin 1.5 1.5 Karlos Test Present Present Hemoglobin 16.4 H 16.5 H Carboxyhemoglobin 2.6 2.3 O2 Delivery Device Nasal cannula Bipap Liter Flow 6.00 Vent Setting 18/+8 Inspired O2 65 Critical Value Yes Yes Sodium Potassium Chloride Carbon Dioxide Anion Gap BUN Creatinine Estimated GFR POC Glucose Random Glucose Calcium Phosphorus Magnesium Nasal Screen MRSA (PCR) Imaging: Chest X-Ray 02/01/18 15:42 CONCLUSION: Radiographic findings consistent with congestive heart failure or volume overload. Chest CTA 02/01/18 15:47 CONCLUSION: 1. No evidence of pulmonary embolism. 2. Fibrotic scarring within the left upper lobe. 3. 4 mm noncalcified nodule within the right upper lobe. Follow-up CT of the chest in 12 months is recommended according to Fleischner Society guidelines. 4. No evidence disease involving left hilum and left lower lobe. 5. Cardiomegaly. 6. Tiny pericardial effusion. Venous Doppler Study 02/01/18 15:47 CONCLUSION: 1. The study is negative for lower extremity deep venous thrombosis. Objective Remarks: GENERAL: Patient is 57 yo on BIPAP aake and alert SKIN: Warm and dry. HEAD: Normocephalic. EYES: No scleral icterus. No injection or drainage. NECK: Supple, trachea midline. No JVD or lymphadenopathy. CARDIOVASCULAR: Regular rate and rhythm without murmurs, gallops, or rubs. RESPIRATORY: Breath sounds equal bilaterally. No accessory muscle use. GASTROINTESTINAL: Abdomen soft, non-tender, nondistended. MUSCULOSKELETAL: No cyanosis, or edema. Neuro: Awake and alert Assessment and Plan - Assessment and Plan Plan: 1)Acute hypoxemic and hypercapnic resp failure 2)Acute Severe COPD exacerbation 3)Obesity 4)Ongoing Tobacco Abuse 5)4 mm noncalcified nodule within the right upper lobe 6)Hx Depression, Bipolar disorder Plan Neuro: Awake and alert avoid sedatives Psych eval( hx depression, Bipolar disorder) Pulm: Wean down oxygen as payton keep sats >92% Repeat ABG this morning showed some improvements in her resp acidosis if there is any changes in clinical status will proceed with intubation and mechanical ventilation. Bronchodilators ( DuoNeb, add Symbicort) Solumederol 60mg Q8, Singular 10mg daily BIPAP PRN for resp distress Diamox 250mg IV x1 Pulm consulted CV: Monitor HR and BP keep MAP>65mmHg On Coreg 12.5mg BID, Lisinopril 40mg daily, Lasix 40mg daily Lactic acid 1.0 : Monitor renal function, I/O's, electrolytes replacement per protocol. GI: Start PO diabetic diet ID: Monitor for signs of infections ( Fever, WBC) Panculture if spikes a fever Heme: Monitor CBC Endo: On SSI, Levemir 30u qhs for glycemic control GI prophylaxis- On Pepcid DVT prophylaxis- SCD, Lovenox 40mg SQ daily Level 2
[2018-02-02] MEDS: Budesonide-Formoterol 160/4.5 MCG 6 GM Inhaler INH SCH ×2 (12:04→20:34)
--- NOTE | 2018-02-02 13:54 | ECG ---
Date Performed: 02/01/2018 Time Performed: 16:05:12 PTAGE: 57 years EKG: Sinus rhythm WITH OCCASIONAL SUPRAVENTRICULAR PREMATURE COMPLEXES POSSIBLE LEFT ATRIAL ENLARGEMENT BORDERLINE ECG Since the PREVIOUS TRACING , no significant change noted PREVIOUS TRACIN02/06/2017 20.32 DOCTOR: Ana Henriquez Interpretating Date/Time 02/02/2018 13:53:11
[2018-02-02 15:27] LABS: ABG Base Excess 7.4 mmol/L (-2-2); ABG PCO2 65 mmHg (38-42); ABG PO2 67 mmHG (61-120)
[2018-02-02] MEDS ORDERED: ALPRAZolam 0.25 MG Tablet PO ONE (17:00)
[2018-02-02] MEDS: Montelukast 10 MG Tablet PO SCH (17:08)
[2018-02-02] MEDS: Enoxaparin Inj 40 MG/0.4 ML Syringe SQ SCH (20:34)
[2018-02-02] MEDS: Insulin Detemir Inj 1,000 UNIT/10 ML Vial SQ SCH (20:48)
--- NOTE | 2018-02-02 20:51 | MB ---
cc: Yaquelin Hernandez MD DATE: 02/02/2018 REASON FOR CONSULTATION: COPD and hypoxemia. HISTORY OF PRESENT ILLNESS: This is a 57-year-old lady who has had a history of COPD, on home oxygen at 3 liters, presented to the emergency room with shortness of breath, cough, wheezing and chest congestion. The patient was hypercapnic and she did go for a CTA of the chest which showed no evidence of pulmonary emboli. The patient was placed on IV antibiotics, IV steroids and BiPAP, subsequently switched to high-flow nasal cannula and is now in the intensive care unit and seems to be alert and mildly dyspneic, but feels a lot better than during her admission. She denies any chest pains, but has a cough and brings up whitish yellow mucus. The patient has a longstanding history of smoking and continues to smoke. PAST MEDICAL HISTORY: Past history has included a history of recurrent exacerbations of bronchitis, history of congestive heart failure, cardiomyopathy, history of diabetes mellitus type 2 and history of x 2. HABITS: The patient smoked 2-3 packs per day for over 30 years, but recently cut back to 1 pack. Alcohol use is moderate. ALLERGIES: NO DRUG ALLERGIES ARE LISTED. MEDICATIONS: List is as follows: 1. Singulair 10 mg once daily. 2. Lisinopril 40 mg daily. 3. Metformin 500 mg daily. 4. Lantus insulin 30 units at bedtime. 5. Gabapentin 800 mg t.i.d. 6. Lasix 40 mg a day. 7. Coreg 12.5 mg b.i.d. 8. Omeprazole 20 mg a day. 9. Potassium 10 mEq daily. 10. Atrovent HFA inhaler 2 puffs q.6 hours. FAMILY HISTORY: There is a history of chronic lung disease as well as heart disease in the family. REVIEW OF SYSTEMS: The patient has gained weight. She has leg swelling. She has dizzy attacks. She has postnasal drip, cough and wheezing. She has epigastric distress and reflux. Denies GI bleed. No urinary symptoms. No leg or calf muscle pain, but has some joint pains of her extremities. PHYSICAL EXAMINATION: GENERAL: This is a moderately obese, middle-aged white female who is alert and oriented, in mild respiratory distress. VITAL SIGNS: Blood pressure 130/70, pulse 90, respirations 22, temperature 97.5. HEENT: Head is normocephalic. Pupils are reactive and equal. Tongue is moist. Throat is injected. Nasal mucosa is clear. NECK: Supple. No bruits, thyroid enlargement or lymphadenopathy. CHEST: Equal movements with percussion and resonant throughout. Expiratory wheezes are scattered throughout both lung hale, prolonged expirations with occasional crackles at the right base. HEART: Sounds are regular. S1 and S2 with no murmur, no S3 gallop. ABDOMEN: Soft and protuberant without masses. No organomegaly or tenderness. Bowel sounds are active. EXTREMITIES: No lesions. Mild edema. Decreased peripheral pulses. NEUROLOGIC: Reflexes are 1+ with no gross motor deficits. Cranial nerves are grossly intact. SKIN: No lesions observed. IMPRESSION: 1. Hypercapnic respiratory failure. 2. Chronic obstructive pulmonary disease with acute exacerbation. 3. Probable basilar pneumonia. 4. Diabetes mellitus type 2. 5. Hypertension. 6. Congestive heart failure. PLAN: The patient has been placed on O2 high flow at 40% FiO2 and will be placed on BiPAP at night at 15/5 cm and 35% FiO2. Nebulized DuoNeb solution added q.4 hours. Symbicort 160/4.5 mcg 2 puffs twice daily was added. Continue with Lovenox 40 mg subcutaneous daily, Lasix 40 mg p.o. daily and continue the antibiotic coverage including Levaquin 500 mg a day. Solu-Medrol 60 mg IV q.8 hours and taper down to 40 mg in the a.m. Repeat blood gas study in a.m. The patient was counseled about not smoking. A repeat chest x-ray to be done. I will follow the case with you, Dr. Hurd. Thank you for this consultation. VMD SUDHA Magdaleno/frank , 06:55 PM , 07:06 PM
[2018-02-03 00:53] LABS: ABG Base Excess 8.1 mmol/L (-2-2); ABG PCO2 71 mmHg (38-42); ABG PO2 59 mmHG (61-120)
[2018-02-03] MEDS: Chlorhexidine Gluconate 2% 1 Pack (2 Cloths) TOPICAL SCH (03:33)
[2018-02-03] MEDS: MethylPREDNISolone Sod Succinate Inj 125 MG/2 ML Vial IV.PUSH SCH ×4 (05:49→23:38)
[2018-02-03 06:07] LABS: ABG Base Excess 7.2 mmol/L (-2-2); ABG PCO2 68 mmHg (38-42); ABG PO2 85 mmHG (61-120)
[2018-02-03 06:14] LABS: Baso % (Auto) 0.4 % (0.0-2.0); Hematocrit 49.3 % (35.0-46.0); Hemoglobin 15.4 gm/dL (11.6-15.3); Lymph # (Auto) 0.5 th/mm3 (1.0-4.8); Mean Corpuscular HGB Conc 31.2 % (32.0-36.0); Mean Corpuscular Volume 92.9 fL (80.0-100.0); Mean Platelet Volume 9.2 fL (7.0-11.0); Mono # (Auto) 0.3 th/mm3 (0.0-0.9); Mono % (Auto) 3.2 % (0.0-8.0); Neut # (Auto) 7.2 th/mm3 (1.8-7.7); Neut % (Auto) 90.4 % (16.0-70.0); Platelet Count 234 th/mm3 (150-450); Red Cell Distribution Width 15.9 % (11.6-17.2); White Blood Count 7.9 th/mm3 (4.0-11.0)
--- NOTE | 2018-02-03 06:16 | XR ---
EXAM DATE: 02/03/2018 5:30 AM EDT AGE/SEX: 57 years / Female INDICATIONS: Shortness of breath, possible pulmonary disease on a patient that has rapid labored felipe athing. CLINICAL DATA: This is the patient's subsequent encounter. Patient reports that signs and symptoms h ave been present for 4 - 6 days and indicates a pain score of Nonresponsive. MEDICAL/SURGICAL HISTORY: Chronic obstructive pulmonary disease. Congestive heart failure. Di abetes. section. COMPARISON: C, CHEST 1V SINGLE AP, 02/01/2018. . FINDINGS: Moderate motion artifact blurs the image. There is increasing consolidation in the central lungs bila terally, left lower lung, and in the left upper lung. There is loss of delineation of a portion of th e medial left hemidiaphragm. The heart is enlarged. CONCLUSION: Increasing consolidation in the central lungs bilaterally, left upper, and left lower lobes. Electronically signed by: Edi Wharton MD 02/03/2018 6:15 AM EDT
[2018-02-03 06:36] LABS: Calcium 8.6 mg/dL (8.5-10.1); Carbon Dioxide 33.8 meq/L (21.0-32.0); Phosphorus 5.4 mg/dL (2.5-4.9); Potassium 4.4 meq/L (3.5-5.1)
--- NOTE | 2018-02-03 08:48 | P.PNCC ---
Subjective Subjective Remarks/Hospital Course: 57yF with history of o2 dependent copd (4LPM continuously, but patient states she doesn't always wear it, only when she feels like she needs it). She presents with 4 weeks of progressive shortness of breath and fatigue. she denies fever, chills. denies new or differing sputum production. she continues to smoke. in the ER was found to be hypoxic, hypercarbic, respiratory acidosis. CTA chest negative for PE. no new symptoms other than her fatigue. ROS negative for chest pain, headache, f/c, cough, sputum production, runny nose, congestion , n/v/c/d/abd pain. she was increasingly somnolent in the ER and was placed on BiPAP with improvement of her symptoms. ROS is otherwise negative unless stated above. 02/02 Patient is awake and alert on BIPAP 13/01 with 65%FIO2. ABG this morning showed improvements in her resp acidosis. Afebrile. Awake and alert. 02/03: Worsening hypercarbic and hypoxic respiratory failure with worsening level of consciousness. Hard to awake currently on 80% FiO2. Chest x-ray showing increasing consolidation. While preparing for intubation patient adamantly refused intubation until she talks to the family- I strongly recommend to endotracheal intubation and supportive care Objective Vital Signs / I&O: Vital Signs 02/02/18 09:00 02/02/18 12:00 02/02/18 12:30 Temperature 98.2 F Pulse Rate 90 71 69 Respiratory Rate 32 H 20 Blood Pressure 145/65 H Pulse Oximetry 88 L 02/02/18 13:08 02/02/18 16:00 02/02/18 16:29 Temperature 98.7 F Pulse Rate 80 75 Respiratory Rate 45 H 24 Blood Pressure 142/78 H Pulse Oximetry 89 L 88 L 02/02/18 20:00 02/02/18 20:17 02/02/18 23:20 Temperature 98.6 F Pulse Rate 84 78 Respiratory Rate 32 H 20 Blood Pressure 145/62 H Pulse Oximetry 90 L 93 L 92 L 02/02/18 23:23 02/03/18 00:00 02/03/18 04:00 Temperature 98.8 F 98.7 F Pulse Rate 74 67 64 Respiratory Rate 26 H 19 33 H Blood Pressure 127/63 123/62 Pulse Oximetry 89 L 94 L 02/03/18 04:03 02/03/18 07:00 02/03/18 08:00 Temperature Pulse Rate 65 56 L Respiratory Rate 27 H 20 Blood Pressure Pulse Oximetry 97 Intake & Output 02/02/18 02/03/18 02/03/18 18:59 06:59 18:59 Intake Total 1000 / 1000 700 / 700 Balance 1000 / 1000 700 / 700 Weight 101.8 kg Intake: Oral 1000 / 1000 700 / 700 Other: # Voids 5 5 Date of Last Bowel Movement 02/02/18 02/02/18 # Bowel Movements 2 1 Result Diagrams: 02/03/18 06:01 02/03/18 06:01 Objective Remarks: GENERAL: Patient is 57 yo on BIPAP somnolent lethargic SKIN: Warm and dry. HEAD: Normocephalic. EYES: No scleral icterus. No injection or drainage. NECK: Supple, trachea midline. No JVD or lymphadenopathy. CARDIOVASCULAR: Bradycardic rate and rhythm without murmurs, gallops, or rubs.. RESPIRATORY: Breath sounds equal bilaterally but diminished. On BiPAP 13/01, with bilateral wheezes GASTROINTESTINAL: Abdomen soft, non-tender, nondistended. MUSCULOSKELETAL: No cyanosis, or edema. Neuro: Somnolent lethargic, intermittently agitated. Moving all extremities Assessment and Plan - Assessment and Plan Plan: Acute hypoxemic and hypercapnic respiratory failure Acute Severe COPD exacerbation Probable bilateral pneumonia COPD on chronic home oxygen Obesity Ongoing Tobacco Abuse 4 mm noncalcified nodule within the right upper lobe Hx Depression, Bipolar disorder Plan Neuro: Somnolence and lethargy due to worsening hypoxic and hypercarbic respiratory failure Psych eval( hx depression, Bipolar disorder) Pulm: Wean down oxygen as [place] keep sats >88% Repeat ABG this am showed worsening hypoxia and persistent hypercarbia Clinically worsening with increased lethargy on 80% FiO2 strongly recommended intubation and mechanical ventilation. When she wakes of patient strongly refuses intubation, wants to talk to family prior to Bronchodilators ( DuoNeb, Symbicort) Solumedrol 60mg Q8, increase to q. 6, Singular 10mg daily BIPAP PRN for resp distress Diamox 250mg IV x1 given yesterday Pulm consulted, Dr. Gonzalez CV: Monitor HR and BP keep MAP>65mmHg On Coreg 12.5mg BID-reduce to 6.25 mg BID, Lisinopril 40mg daily, Lasix 40mg daily. give Lasix 40 mg IV 1 Lactic acid 1.0 : Monitor renal function, I/O's, electrolytes replacement per protocol. GI: Keep n.p.o. except meds ID: Monitor for signs of infections ( Fever, WBC) Panculture if spikes a fever Start patient on cefepime 2 g IV every 8 hours empirically for pneumonia as well as there is bilateral infiltrates Heme: Monitor CBC Endo: On SSI, Levemir 30u qhs for glycemic control GI prophylaxis- On Pepcid DVT prophylaxis- SCD, Lovenox 40mg SQ daily CCT 42: Worsening respiratory failure hypercapnic and hypoxemic. Currently on 80% FiO2 BiPAP 13/01. Patient is at extreme high risk of acute decompensation requiring emergency intubation. However she adamantly refuses intubation until she can talk to family. Her boyfriend is arriving soon Code Status: Full
[2018-02-03] MEDS: Carvedilol 12.5 MG Tablet PO SCH ×2 (10:54→19:59)
[2018-02-03] MEDS: Furosemide 40 MG Tablet PO SCH (10:55)
[2018-02-03] MEDS: Famotidine 20 MG Tablet PO SCH ×2 (10:56→19:59)
[2018-02-03] MEDS: Polyethylene Glycol 3350 17 GM Packet PO SCH ×2 (10:56→22:20)
[2018-02-03] MEDS: Senna/Docusate Sodium 8.6/50 MG Tablet PO SCH ×2 (10:57→22:20)
[2018-02-03] MEDS: Lisinopril 20 MG Tablet PO SCH (11:16)
[2018-02-03] MEDS: Gabapentin 400 MG Capsule PO SCH ×3 (11:17→17:14)
--- NOTE | 2018-02-03 14:11 | P.PN ---
Subjective Interval history: She was in respiratory distress this AM. Refused intubation but used BiPAP and is now better. On O2 5 L. Sats 90. Physical Exam Vital signs: Vital Signs 02/02/18 16:00 02/02/18 16:29 02/02/18 20:00 Temperature 98.7 F 98.6 F Pulse Rate 80 75 84 Respiratory Rate 45 H 24 32 H Blood Pressure 142/78 H 145/62 H Pulse Oximetry 88 L 90 L 02/02/18 20:17 02/02/18 23:20 02/02/18 23:23 Temperature Pulse Rate 78 74 Respiratory Rate 20 26 H Blood Pressure Pulse Oximetry 93 L 92 L 02/03/18 00:00 02/03/18 04:00 02/03/18 04:03 Temperature 98.8 F 98.7 F Pulse Rate 67 64 65 Respiratory Rate 19 33 H 27 H Blood Pressure 127/63 123/62 Pulse Oximetry 89 L 94 L 02/03/18 07:00 02/03/18 08:00 02/03/18 09:00 Temperature 98.5 F Pulse Rate 56 L 58 L 67 Respiratory Rate 20 23 Blood Pressure 126/75 Pulse Oximetry 95 02/03/18 11:11 02/03/18 12:00 Temperature 98.9 F Pulse Rate 64 64 Respiratory Rate 24 29 H Blood Pressure 159/73 H Pulse Oximetry 92 L Intake & Output 02/02/18 02/03/18 02/03/18 18:59 06:59 18:59 Intake Total 1000 / 1000 700 / 700 Balance 1000 / 1000 700 / 700 Weight 101.8 kg Intake: Oral 1000 / 1000 700 / 700 Other: # Voids 5 5 Date of Last Bowel Movement 02/02/18 02/02/18 02/02/18 # Bowel Movements 2 1 GENERAL: Obese mid aged W/F alert oriented SKIN: Warm and dry. HEAD: Atraumatic. Normocephalic. EYES: Pupils equal and round. No scleral icterus. No injection or drainage. ENT: No nasal bleeding or discharge. Mucous membranes pink and moist. NECK: Trachea midline. No JVD. CARDIOVASCULAR: Regular rate and rhythm. No Murmur RESPIRATORY: Has accessory muscle use. Wheeze all over. Breath sounds equal bilaterally. GASTROINTESTINAL: Abdomen soft, non-tender, nondistended. Hepatic and splenic margins not palpable. MUSCULOSKELETAL: Extremities without clubbing, cyanosis, or edema. No obvious deformities. NEUROLOGICAL: Awake and alert. No obvious cranial nerve deficits. Motor grossly within normal limits. Five out of 5 muscle strength in the arms and legs. Normal speech. PSYCHIATRIC: Appropriate mood and affect. Results - Labs CBC & Chem 7: 02/03/18 06:01 02/03/18 06:01 Laboratory Results - last 24 hr 02/02/18 02/02/18 02/02/18 15:14 18:04 20:40 WBC RBC Hgb Hct MCV MCH MCHC RDW Plt Count MPV Neut % (Auto) Lymph % (Auto) [place] % (Auto) Eos % (Auto) Baso % (Auto) Neut # (Auto) Lymph # (Auto) [place] # (Auto) Eos # (Auto) Baso # (Auto) WBC Differential Differential Comment Puncture Site Left radial Patient Temperature 98.6 O2 Saturation 89 L* ABG pH 7.33 L ABG pCO2 65 H* ABG pO2 67 ABG HCO3 33 H ABG O2 Content 19.8 ABG Base Excess 7.4 H ABG Methemoglobin 1.5 Karlos Test Present Hemoglobin 15.9 Carboxyhemoglobin 1.7 O2 Delivery Device High flow nc Liter Flow 40.00 Vent Setting Inspired O2 65 Critical Value Yes Sodium Potassium Chloride Carbon Dioxide Anion Gap BUN Creatinine Estimated GFR POC Glucose 333 H 381 H Random Glucose Calcium Phosphorus Magnesium 02/03/18 02/03/18 02/03/18 00:30 00:36 05:50 WBC RBC Hgb Hct MCV MCH MCHC RDW Plt Count MPV Neut % (Auto) Lymph % (Auto) [place] % (Auto) Eos % (Auto) Baso % (Auto) Neut # (Auto) Lymph # (Auto) [place] # (Auto) Eos # (Auto) Baso # (Auto) WBC Differential Differential Comment Puncture Site Right radial Right radial Patient Temperature 98.6 98.6 O2 Saturation 85 L* 93 ABG pH 7.30 L 7.31 L ABG pCO2 71 H* 68 H* ABG pO2 59 L* 85 ABG HCO3 34 H 33 H ABG O2 Content 18.3 20.5 H ABG Base Excess 8.1 H 7.2 H ABG Methemoglobin 1.5 1.5 Karlos Test Present Present Hemoglobin 15.3 15.6 Carboxyhemoglobin 1.2 1.0 O2 Delivery Device Bipap Bipap Liter Flow Vent Setting 18ipap/8epap 18ipap/8 epap Inspired O2 80 80 Critical Value Yes Yes Sodium Potassium Chloride Carbon Dioxide Anion Gap BUN Creatinine Estimated GFR POC Glucose 236 H Random Glucose Calcium Phosphorus Magnesium 02/03/18 02/03/18 02/03/18 06:01 06:01 06:06 WBC 7.9 RBC 5.30 Hgb 15.4 H Hct 49.3 H MCV 92.9 MCH 29.0 MCHC 31.2 L RDW 15.9 Plt Count 234 MPV 9.2 Neut % (Auto) 90.4 H Lymph % (Auto) 6.0 L [place] % (Auto) 3.2 Eos % (Auto) 0.0 Baso % (Auto) 0.4 Neut # (Auto) 7.2 Lymph # (Auto) 0.5 L [place] # (Auto) 0.3 Eos # (Auto) 0.0 Baso # (Auto) 0.0 WBC Differential . Differential Comment Auto diff final Puncture Site Patient Temperature O2 Saturation ABG pH ABG pCO2 ABG pO2 ABG HCO3 ABG O2 Content ABG Base Excess ABG Methemoglobin Karlos Test Hemoglobin Carboxyhemoglobin O2 Delivery Device Liter Flow Vent Setting Inspired O2 Critical Value Sodium 142 Potassium 4.4 Chloride 101 Carbon Dioxide 33.8 H Anion Gap 7 BUN 30 H Creatinine 1.08 H Estimated GFR 52 L POC Glucose 190 H Random Glucose 200 H Calcium 8.6 Phosphorus 5.4 H Magnesium 2.0 02/03/18 11:21 WBC RBC Hgb Hct MCV MCH MCHC RDW Plt Count MPV Neut % (Auto) Lymph % (Auto) [place] % (Auto) Eos % (Auto) Baso % (Auto) Neut # (Auto) Lymph # (Auto) [place] # (Auto) Eos # (Auto) Baso # (Auto) WBC Differential Differential Comment Puncture Site Patient Temperature O2 Saturation ABG pH ABG pCO2 ABG pO2 ABG HCO3 ABG O2 Content ABG Base Excess ABG Methemoglobin Karlos Test Hemoglobin Carboxyhemoglobin O2 Delivery Device Liter Flow Vent Setting Inspired O2 Critical Value Sodium Potassium Chloride Carbon Dioxide Anion Gap BUN Creatinine Estimated GFR POC Glucose 144 H Random Glucose Calcium Phosphorus Magnesium - Imaging Impressions Chest X-Ray 02/03/18 00:00 CONCLUSION: Increasing consolidation in the central lungs bilaterally, left upper, and left lower lobes. Assessment and Plan - Assessment (1) Respiratory failure Code(s): J96.90 - Respiratory failure, unspecified, unspecified whether with hypoxia or hypercapnia Status: Acute (2) Hypercapnic respiratory failure, chronic Code(s): J96.12 - Chronic respiratory failure with hypercapnia Status: Acute (3) COPD (chronic obstructive pulmonary disease) Code(s): J44.9 - Chronic obstructive pulmonary disease, unspecified Status: Acute (4) CHF (congestive heart failure) Code(s): I50.9 - Heart failure, unspecified Status: Acute (5) Hypertension Code(s): I10 - Essential (primary) hypertension Status: Acute (6) Sleep apnea Code(s): G47.30 - Sleep apnea, unspecified Status: Acute (7) Acute exacerbation of chronic bronchitis Code(s): J20.9 - Acute bronchitis, unspecified; J42 - Unspecified chronic bronchitis Status: Acute - Plan Code Status: 1. O2 5 L N/C 2. Nebs q4h, Duoneb 3. BIPAP 15/5 at HS and PRN daytime FIO2 35 % 4. Solumedrol 60 mg IV Q6H 5. Continue antibiotics. 6. CXR ,CBC,BMP 7. Symbicort 160/4.5 mcg, 2puffs BID 8. Psych Evaluation
--- NOTE | 2018-02-03 14:51 | P.CONPSY ---
Provisional Diagnosis Admission Date: February 01, 2018 19:00 [place].: Bipolar disorder History of Present Illness Service: Psychiatry Consult date: 02/03/18 Reason for Consult: Depression, History of bipolar disorder Primary Care Provider: UNKNOWN Family Provider: Eduardo Horne Chief Complaint: fatigue, sob History of Present Illness: Patient is a 57 y/o man, single domiciled with common law , unemployed on SSI, with past psychiatric history of bipolar disorder, remote psychiatric admissions, no prior suicide attempts or self injurious behavior, with substance use history of crack cocaine use with recent relapse, with past medical history of CHF, COPD, DM, who was admitted to the critical care unit for severe COPD exacerbation which patient has history of bipolar disorder and psychiatry was consulted for evaluation. Discussion with nursing staff reported that the patient had been confused this morning with respiratory distress but did not require intubation but alert and appropriate now. Patient was found lying on hospital bed with at bedside but interviewed alone. Patient states that she has been having respiratory difficulty for the past two months which has affected her sleep, energy and appetite but denied feeling depressed. She mentions prior to admission having been sent to the ED by her PCP due to poor O2 saturation and shortness of breath which led to her admission. Patient reports her mood as being "good", denies any other depressive symptoms, denies any manic or psychotic symptoms recently or currently. Rest of psychiatric review of systems negative, no delusional material elicited. Patient this time reports feeling good, denies SI, HI, AVH or delusions. Family psychiatric history: Patient reports bipolar disorder on her mother's side of the family Past psychiatric history: Previous psychiatric diagnosis of bipolar disorder as per patient, 3-4 previous psychiatric admissions last time being over 10 years ago, denies any previous suicide attempt or self-injurious behavior. Patient reports not having had mental health provider services for over 10 years, currently on Prozac and Xanax through her PCP. Substance use history: Tobacco use, occasional alcohol use, history of crack cocaine use with recent relapse 5 years ago which she now currently uses occasionally (every few days last time being prior to her hospitalization. Patient reports history of rehabilitation programs in the past. Past medical history: CHF, COPD, DM Allergies: Depakote, azithromycin Social history: Single, domiciled with common-law , unemployed on [employer], born and raised in [place], no legal history. Review of Systems All other systems reviewed negative except as stated in HPI PMFSH - History History Provided By: Patient, Medical Record - Medical History Medical History: Medical History (Last Updated 02/01/18 @ 15:56 by Rylie Jaimes) CHF (congestive heart failure) COPD (chronic obstructive pulmonary disease) Diabetes - Family History Family History: Family History (Last Updated 02/01/18 @ 20:58 by Kwasi Maldonado MD) Other Family history non-contributory - Tobacco History Second Hand Smoke Exposure: Yes Tobacco Use In Past 30 Days: Yes Smoking Status: Current every day smoker Tobacco Type: Cigarettes - Alcohol History How Often Do You Have a Drink Containing Alcohol: 2 to 3 times a week - Substance Use History Substance History: Past History - Travel History Recent Travel in the [place] Within the Last 8 Weeks: No Recent Travel Out of the Country Within the Last 8 Weeks: No - Immunization History Tetanus Immunization: Unsure Medications and Allergies Active Medications: Active Medications Acetaminophen (Tylenol) 650 mg PO Q6H PRN PRN Reason: TEMPERATURE > 101 F Last Admin: 02/01/18 22:31 Dose: 650 mg Albuterol (Duoneb Neb (Prn)) 1 ampul NEB Q2HR NEB PRN PRN Reason: WHEEZING Albuterol (Duoneb Neb (Jose)) 1 ampul NEB Q4HR NEB JOSE Last Admin: 02/03/18 11:10 Dose: 1 ampul Bisacodyl (Dulcolax Supp) 10 mg RECTAL DAILY PRN PRN Reason: if no BM in last 24h Budesonide/Formoterol Fumarate (Symbicort 160/4.5 Mcg Inh) 2 puff INH BID [facility] Last Admin: 02/02/18 20:34 Dose: 2 puff Carvedilol (Coreg) 6.25 mg PO BID JOSE Last Admin: 02/03/18 10:54 Dose: 6.25 mg Chlorhexidine Gluconate (Chlorhexidine 2% Cloth) 3 pack TOPICAL DAILY@0400 PRN PRN Reason: Extra cloth needed Stop: 02/07/18 03:59 Chlorhexidine Gluconate (Chlorhexidine 2% Cloth) 3 pack TOPICAL DAILY@0400 JOSE Stop: 02/07/18 03:59 Last Admin: 02/03/18 03:33 Dose: 3 pack Dextrose (D50w Syringe) 50 ml IV.PUSH UNSCH PRN PRN Reason: PER HYPOGLYCEMIA PROTOCOL Enoxaparin Sodium (Lovenox Inj) 40 mg SQ HS [facility] Last Admin: 02/02/18 20:34 Dose: 40 mg Famotidine (Pepcid) 20 mg PO BID [facility] Last Admin: 02/03/18 10:56 Dose: 20 mg Furosemide (Lasix) 40 mg PO DAILY [facility] Last Admin: 02/03/18 10:55 Dose: 40 mg Gabapentin (Neurontin) 800 mg PO TID [facility] Last Admin: 02/03/18 12:05 Dose: Not Given Glucagon (Glucagon Inj) 1 mg IM ONCE PRN PRN Reason: blood sugar < 60, no iv access Magnesium Sulfate Inj 4 gm/ (Sodium Chloride) 100 mls @ 50 mls/hr IV.SIG UNSCH PRN PRN Reason: For Magnesium 0.9 - 1.1 mg/dL Magnesium Sulfate Inj 2 gm/ (Sodium Chloride) 100 mls @ 50 mls/hr IV.SIG UNSCH PRN PRN Reason: For Magnesium 1.2 - 1.6 mg/dL Potassium Chloride (Kcl 40 Meq Premix Inj) 40 meq in 100 mls @ 25 mls/hr IV.SIG Q2H PRN PRN Reason: For Potassium 2.8 - 3.2 mEq/L Potassium Chloride (Kcl 20 Meq Premix Inj) 20 meq in 100 mls @ 50 mls/hr IV.SIG Q2H PRN PRN Reason: For Potassium 3.3 - 3.5 mEq/L Potassium Chloride (Kcl 40 Meq Premix Inj) 40 meq in 100 mls @ 25 mls/hr IV.SIG UNSCH PRN PRN Reason: For Potassium 3.3 - 3.5 mEq/L Potassium Phosphate 30 mmol/ (Sodium Chloride) 260 mls @ 42 mls/hr IV.SIG UNSCH PRN PRN Reason: SEE LABEL COMMENTS Sodium Phosphate 30 mmol/ (Sodium Chloride) 260 mls @ 42 mls/hr IV.SIG UNSCH PRN PRN Reason: For Phosphorus < 2.5 mg/dL Potassium Chloride (Kcl 20 Meq Premix Inj) 20 meq in 100 mls @ 50 mls/hr IV.SIG Q2H PRN PRN Reason: For Potassium 2.8 - 3.2 mEq/L Cefepime HCl 2,000 mg/ Sodium (Chloride) 100 mls @ 200 mls/hr IV.SIG Q8H [facility] Last Admin: 02/03/18 10:55 Dose: 200 mls/hr Insulin Detemir (Levemir Inj) 30 unit SQ HS [facility] Last Admin: 02/02/18 20:48 Dose: 30 unit Insulin Human Regular (Novolin R Inj) 0 units SQ Q6HR [facility]; Protocol Last Admin: 02/03/18 12:05 Dose: Not Given Lactulose (Lactulose Liq) 30 ml PO BID [facility] Last Admin: 02/03/18 10:56 Dose: Not Given Lisinopril (Prinivil) 40 mg PO DAILY [facility] Last Admin: 02/03/18 11:16 Dose: 40 mg Magnesium Oxide (Mag-Ox) 800 mg PO UNSCH PRN PRN Reason: For Magnesium 1.2 - 1.6 mg/dL Methylprednisolone Sodium Succinate (Solumedrol Inj) 60 mg IV.PUSH Q6H [facility] Last Admin: 02/03/18 11:21 Dose: 60 mg Montelukast Sodium (Singulair) 10 mg PO DAILY@1800 [facility] Last Admin: 02/02/18 17:08 Dose: 10 mg Nicotine (Habitrol 21 Mg Patch.24 Hr) 1 patch T-DERMAL DAILY [facility] Last Admin: 02/03/18 10:55 Dose: 1 patch Ondansetron HCl (Zofran Inj) 4 mg IV.PUSH Q6H PRN PRN Reason: NAUSEA OR VOMITING Patch Removal (Remove Old Patch) 1 each T-DERMAL DAILY [facility] Last Admin: 02/03/18 10:57 Dose: 1 each Polyethylene Glycol (Miralax) 17 gm PO BID [facility] Last Admin: 02/03/18 10:56 Dose: Not Given Potassium Bicarb/Potassium Chloride (K-Lyte Cl Eff) 50 meq PO UNSCH PRN PRN Reason: For Potassium 3.3 - 3.5 mEq/L Potassium Phosphate (K-Phos Original) 2,000 mg PO Q4H PRN PRN Reason: Phosphorus Less Than 2.5 mg/dL Potassium Phosphate (K-Phos Original) 2,000 mg PO UNSCH PRN PRN Reason: SEE LABEL COMMENTS Senna/Docusate Sodium (Angela-Colace) 1 tab PO BID [facility] Last Admin: 02/03/18 10:57 Dose: Not Given Sodium Chloride (Ns Flush) 2 ml IV.FLUSH UNSCH PRN PRN Reason: FLUSH AFTER USING IV ACCESS Allergies Allergy/AdvReac Type Severity Reaction Status Date / Time azithromycin Allergy Severe RASH Verified 02/01/18 15:54 divalproex sodium Allergy Severe SWELLS UP Verified 02/01/18 15:54 *MDRO Multi-Drug Resistant AdvReac Unknown Abdominal Uncoded 02/01/18 15:54 Organism Pain Home Medications Medication Instructions Recorded Confirmed Type carvedilol 12.5 mg PO BID 02/01/18 02/01/18 History furosemide 40 mg PO DAILY 02/01/18 02/01/18 History gabapentin [Neurontin] 800 mg PO TID 02/01/18 02/01/18 History insulin glargine [Lantus U-100 30 unit SUB-Q HS 02/01/18 02/01/18 History Insulin] ipratropium bromide [Atrovent HFA] 1 puff INHALATION Q6H 02/01/18 02/01/18 History lisinopril 40 mg PO DAILY 02/01/18 02/01/18 History metformin 500 mg PO DAILY 02/01/18 02/01/18 History montelukast [Singulair] 10 mg PO QPM 02/01/18 02/01/18 History nebulizers 02/01/18 02/01/18 History omeprazole 20 mg PO DAILY 02/01/18 02/01/18 History potassium chloride 10 meq PO ONCE 02/01/18 02/01/18 History Exam Vital signs: Vital Signs 02/02/18 16:00 02/02/18 16:29 02/02/18 20:00 Temperature 98.7 F 98.6 F Pulse Rate 80 75 84 Respiratory Rate 45 H 24 32 H Blood Pressure 142/78 H 145/62 H Pulse Oximetry 88 L 90 L 02/02/18 20:17 02/02/18 23:20 02/02/18 23:23 Temperature Pulse Rate 78 74 Respiratory Rate 20 26 H Blood Pressure Pulse Oximetry 93 L 92 L 02/03/18 00:00 02/03/18 04:00 02/03/18 04:03 Temperature 98.8 F 98.7 F Pulse Rate 67 64 65 Respiratory Rate 19 33 H 27 H Blood Pressure 127/63 123/62 Pulse Oximetry 89 L 94 L 02/03/18 07:00 02/03/18 08:00 02/03/18 09:00 Temperature 98.5 F Pulse Rate 56 L 58 L 67 Respiratory Rate 20 23 Blood Pressure 126/75 Pulse Oximetry 95 02/03/18 11:11 02/03/18 12:00 Temperature 98.9 F Pulse Rate 64 64 Respiratory Rate 24 29 H Blood Pressure 159/73 H Pulse Oximetry 92 L Intake & Output 02/02/18 02/03/18 02/03/18 18:59 06:59 18:59 Intake Total 1000 / 1000 700 / 700 Balance 1000 / 1000 700 / 700 Weight 101.8 kg Intake: Oral 1000 / 1000 700 / 700 Other: # Voids 5 5 Date of Last Bowel Movement 02/02/18 02/02/18 02/02/18 # Bowel Movements 2 1 - Constitutional no acute distress, cooperative Mental Status Examination Appearance: Appropriate Consciousness: Alert Orientation: Person, Place, Date/Time Speech: Pressured (Slightly) Language: Adequate Fund of Knowledge: Inadequate Attention and Concentration: Adequate Memory: Unremarkable Mood: Good Affect: Appropriate Thought Process & Associations: Intact, Logical, Linear Thought Content: Appropriate Hallucination Type: None Delusion Type: None Suicidal Ideation: No Suicidal Plan: No Suicidal Intention: No Homicidal Ideation: No Homicidal Plan: No Homicidal Intention: No Insight: Fair Judgment: Impulsive Assessment and Plan - Assessment (1) Bipolar disorder Code(s): F31.9 - Bipolar disorder, unspecified Status: Acute - Plan Plan: Estimated LOS: [] days Patient is a 57-year-old woman with a psychiatric history of bipolar disorder, crack cocaine use disorder, with relapse, with past medical history significant for CHF, COPD, DM who was admitted under the medical services for severe COPD exacerbation which due to patient having history of mental illness psychiatry was consulted for evaluation. Patient at this time does not present with any acute psychiatric symptoms are require immediate psychiatric intervention other patient request to be referred to a therapist along with resources for rehabilitation program for substance use and cessation of tobacco use. No psychotropic medications indicated at this time, patient does not require inpatient psychiatric level of care. Patient would benefit from social work/case management assistance and referral to a local mental health clinic for outpatient mental health services to include rehabilitation program for substance use and cessation program for tobacco use. Consult appreciated. Justification for Continued Inpatient Stay: At risk of further decompensation a lower level of care.
[2018-02-03] MEDS: Montelukast 10 MG Tablet PO SCH (17:14)
[2018-02-03] MEDS: Budesonide-Formoterol 160/4.5 MCG 6 GM Inhaler INH SCH ×2 (17:17→22:20)
[2018-02-03] MEDS: Enoxaparin Inj 40 MG/0.4 ML Syringe SQ SCH (19:59)
[2018-02-03] MEDS: Insulin Detemir Inj 1,000 UNIT/10 ML Vial SQ SCH (20:00)
--- NOTE | 2018-02-04 03:48 | XR ---
EXAM DATE: 02/04/2018 3:35 AM EDT AGE/SEX: 57 years / Female INDICATIONS: Shortness of breath, possible pulmonary disease. CLINICAL DATA: This is the patient's subsequent encounter. Patient reports that signs and symptoms h ave been present for 4 - 6 days and indicates a pain score of 0/10. MEDICAL/SURGICAL HISTORY: Chronic obstructive pulmonary disease. Congestive heart failure. Di abetes. section. [place] [facility] [place]. . FINDINGS: Mild blurring of the images. There is persistent consolidation in the central lungs bilaterally and a triangular infiltrate extending from the left hilar region; these infiltrates are similar to prior e xam. There is loss of delineation of the left hemidiaphragm. Stable cardiomegaly. CONCLUSION: Persistent consolidative infiltrates in both lungs, left greater than right. Electronically signed by: Edi Wharton MD 02/04/2018 3:47 AM EDT
[2018-02-04 05:31] LABS: ABG Base Excess 8.1 mmol/L (-2-2); ABG PCO2 75 mmHg (38-42); ABG PO2 73 mmHG (61-120)
[2018-02-04] MEDS: Chlorhexidine Gluconate 2% 1 Pack (2 Cloths) TOPICAL SCH (05:43)
[2018-02-04] MEDS: MethylPREDNISolone Sod Succinate Inj 125 MG/2 ML Vial IV.PUSH SCH (05:43)
[2018-02-04 05:58] LABS: Baso % (Auto) 0.2 % (0.0-2.0); Hematocrit 49.8 % (35.0-46.0); Hemoglobin 16.2 gm/dL (11.6-15.3); Lymph # (Auto) 0.4 th/mm3 (1.0-4.8); Mean Corpuscular HGB Conc 32.5 % (32.0-36.0); Mean Corpuscular Hemoglobin 29.3 pg (27.0-34.0); Mean Corpuscular Volume 90.1 fL (80.0-100.0); Mean Platelet Volume 9.1 fL (7.0-11.0); Mono # (Auto) 0.1 th/mm3 (0.0-0.9); Mono % (Auto) 1.5 % (0.0-8.0); Neut # (Auto) 8.4 th/mm3 (1.8-7.7); Neut % (Auto) 93.3 % (16.0-70.0); Platelet Count 236 th/mm3 (150-450); Red Blood Count 5.53 mil/mm3 (4.00-5.30); Red Cell Distribution Width 15.9 % (11.6-17.2)
[2018-02-04 06:29] LABS: Albumin 2.9 g/dL (3.4-5.0); Anion Gap 5 meq/L (5-15); Aspartate Aminotransferase 12 U/L (15-37); Blood Urea Nitrogen 35 mg/dL (7-18); Calcium 8.4 mg/dL (8.5-10.1); Carbon Dioxide 34.8 meq/L (21.0-32.0); Chloride 100 meq/L (98-107); Glomerular Filtration Rate 48 mL/min (>89); Glucose,Random 162 mg/dL (74-106); Potassium 4.4 meq/L (3.5-5.1); Sodium 140 meq/L (136-145)
[2018-02-04 06:30] LABS: Alanine Aminotransferase 23 U/L (10-53)
[2018-02-04 06:34] LABS: Alkaline Phosphatase 72 U/L (45-117); Phosphorus 4.3 mg/dL (2.5-4.9); Total Protein 6.3 g/dL (6.4-8.2)
[2018-02-04] MEDS: Gabapentin 400 MG Capsule PO SCH ×3 (08:34→17:19)
[2018-02-04] MEDS: Famotidine 20 MG Tablet PO SCH ×2 (08:34→20:12)
[2018-02-04] MEDS: Furosemide 40 MG Tablet PO SCH (08:35)
[2018-02-04] MEDS: Lisinopril 20 MG Tablet PO SCH (08:35)
[2018-02-04] MEDS: Senna/Docusate Sodium 8.6/50 MG Tablet PO SCH ×2 (08:35→22:11)
[2018-02-04] MEDS: Budesonide-Formoterol 160/4.5 MCG 6 GM Inhaler INH SCH ×2 (08:37→20:13)
[2018-02-04] MEDS: Polyethylene Glycol 3350 17 GM Packet PO SCH (08:38)
--- NOTE | 2018-02-04 10:04 | P.PNCC ---
Subjective Subjective Remarks/Hospital Course: 57yF with history of o2 dependent copd (4LPM continuously, but patient states she doesn't always wear it, only when she feels like she needs it). She presents with 4 weeks of progressive shortness of breath and fatigue. she denies fever, chills. denies new or differing sputum production. she continues to smoke. in the ER was found to be hypoxic, hypercarbic, respiratory acidosis. CTA chest negative for PE. no new symptoms other than her fatigue. ROS negative for chest pain, headache, f/c, cough, sputum production, runny nose, congestion , n/v/c/d/abd pain. she was increasingly somnolent in the ER and was placed on BiPAP with improvement of her symptoms. ROS is otherwise negative unless stated above. 02/02 Patient is awake and alert on BIPAP 13/01 with 65%FIO2. ABG this morning showed improvements in her resp acidosis. Afebrile. Awake and alert. 02/03: Worsening hypercarbic and hypoxic respiratory failure with worsening level of consciousness. Hard to awake currently on 80% FiO2. Chest x-ray showing increasing consolidation. While preparing for intubation patient adamantly refused intubation until she talks to the family- I strongly recommend to endotracheal intubation and supportive care Subjective 02/04: Afebrile. Complaining of anxiety. Requesting alprazolam and resumption of fluoxetine. Continue gabapentin for back pain. Currently on nasal cannula. Objective Vital Signs / I&O: Vital Signs 02/03/18 11:11 02/03/18 12:00 02/03/18 14:39 Temperature 98.9 F Pulse Rate 64 64 69 Respiratory Rate 24 29 H 15 Blood Pressure 159/73 H Pulse Oximetry 92 L 02/03/18 16:00 02/03/18 20:00 02/03/18 20:55 Temperature 98.6 F 98.5 F Pulse Rate 77 80 76 Respiratory Rate 54 H 27 H 24 Blood Pressure 202/139 H 168/75 H Pulse Oximetry 89 L 89 L 93 L 02/03/18 21:15 02/04/18 00:00 02/04/18 00:24 Temperature 98.8 F Pulse Rate 65 Respiratory Rate 26 H Blood Pressure 152/68 H Pulse Oximetry 91 L 91 L 91 L 02/04/18 00:28 02/04/18 01:59 02/04/18 04:00 Temperature 98.5 F Pulse Rate 55 L 53 L Respiratory Rate 30 H 21 Blood Pressure 155/72 H Pulse Oximetry 89 L 90 L 02/04/18 04:08 02/04/18 04:10 02/04/18 07:57 Temperature Pulse Rate 56 L 55 L Respiratory Rate 23 20 Blood Pressure Pulse Oximetry 88 L 94 L 02/04/18 08:00 02/04/18 09:00 Temperature 97.3 F L Pulse Rate 72 72 Respiratory Rate 32 H Blood Pressure 161/98 H Pulse Oximetry 100 Intake & Output 02/03/18 02/04/18 02/04/18 18:59 06:59 18:59 Intake Total 1100 / 1100 700 / 700 Output Total 1999 / 1999 Balance -900 / -900 700 / 700 Weight 101.1 kg Intake: IV 300 / 300 100 / 100 Maxipime Inj 2,000 MG In NS Inj 300 / 300 100 / 100 100 ML @ 200 mls/hr IV.SIG Q8H [facility]ONDA Rx#:[id number] Oral 800 / 800 600 / 600 Output: Urine 1999 Other: # Voids 5 Date of Last Bowel Movement 02/02/18 02/02/18 02/02/18 Result Diagrams: 02/04/18 05:43 02/04/18 05:43 Imaging: Chest X-Ray 02/01/18 15:42 CONCLUSION: Radiographic findings consistent with congestive heart failure or volume overload. Chest CTA 02/01/18 15:47 CONCLUSION: 1. No evidence of pulmonary embolism. 2. Fibrotic scarring within the left upper lobe. 3. 4 mm noncalcified nodule within the right upper lobe. Follow-up CT of the chest in 12 months is recommended according to Fleischner Society guidelines. 4. No evidence disease involving left hilum and left lower lobe. 5. Cardiomegaly. 6. Tiny pericardial effusion. Venous Doppler Study 02/01/18 15:47 CONCLUSION: 1. The study is negative for lower extremity deep venous thrombosis. Chest X-Ray 02/03/18 00:00 CONCLUSION: Increasing consolidation in the central lungs bilaterally, left upper, and left lower lobes. Chest X-Ray 02/04/18 06:00 CONCLUSION: Persistent consolidative infiltrates in both lungs, left greater than right. Objective Remarks: GENERAL: Patient is 57 yo on nasal cannula in no acute distress SKIN: Warm and dry. HEAD: Normocephalic. EYES: No scleral icterus. No injection or drainage. NECK: Supple, trachea midline. No JVD or lymphadenopathy. CARDIOVASCULAR: RRR. S1, S2. No S4. Without murmurs, gallops, or rubs.. RESPIRATORY: Breath sounds equal bilaterally but diminished. Positive end expiratory wheeze. GASTROINTESTINAL: Abdomen soft, non-tender, nondistended. MUSCULOSKELETAL: No cyanosis, or edema. Neuro: Arousable and anxious.. Moving all extremities Assessment and Plan - Assessment and Plan Plan: Acute hypoxemic and hypercapnic respiratory failure Acute Severe COPD exacerbation Probable bilateral pneumonia COPD on chronic home oxygen Obesity Ongoing Tobacco Abuse 4 mm noncalcified nodule within the right upper lobe -recommended follow-up CT thorax within the next 12 months Hx Depression, Bipolar disorder Polycythemia Chronic low back pain on gabapentin Essential hypertension gastroesophageal reflux disease on omeprazole at home Plan Neuro: Somnolence and lethargy due to worsening hypoxic and hypercarbic respiratory failure Psych eval( hx depression, Bipolar disorder) recommended outpatient follow. Starting on alprazolam 0.125 mg every 6 hours as needed for anxiety and restarting fluoxetine 10 mg daily per patient request Continue gabapentin 8 mg 3 times daily for low back pain Pulm: Wean down oxygen as [place] keep sats >88% Repeat ABG/8 showed worsening hypoxia and persistent hypercarbia Tolerated BiPAP overnight. Currently on 5 L nasal cannula When she wakes of patient strongly refuses intubation, wants to talk to family prior to Bronchodilators (albuterol/ipratropium aerosols every 4 hours with albuterol aerosols every 2 hours as needed dyspnea, budesonide/formoterol 160/ 4.52 puffs twice daily) Methylprednisolone succinate 40 mg every 8 hours. Montelukast 10mg daily BIPAP PRN for resp distress Acetazolamide 250mg IV x1 given 02/02 Pulm consulted, Dr. Hernandez CV: Monitor HR and BP keep MAP>65mmHg On carvedilol 12.5 mg BID, Lisinopril 40mg daily, Lasix 40mg daily. Lactic acid 1.0 : Monitor renal function, I/O's, electrolytes replacement per protocol. GI: ADAT ID: Monitor for signs of infections ( Fever, WBC) Panculture if spikes a fever Start patient on cefepime 2 g IV every 8 hours empirically for pneumonia as well as there is bilateral infiltrates. Noted allergy to his demise. Placed on doxycycline 100 mg every 12 hours 5 days Heme: Monitor CBC Endo: On SSI, insulin detemir 10 units twice daily glycemic control GI prophylaxis- On Famotidine DVT prophylaxis- SCD, and enoxaparin 40mg SQ daily Level 2 follow-up
[2018-02-04] MEDS: MethylPREDNISolone Sod Succinate Inj 40 MG/ML Vial IV.PUSH SCH ×2 (10:06→17:19)
[2018-02-04] MEDS: ALPRAZolam 0.25 MG Tablet PO PRN (11:06)
[2018-02-04] MEDS: Carvedilol 12.5 MG Tablet PO SCH ×2 (11:06→20:12)
--- NOTE | 2018-02-04 14:20 | P.PN ---
Subjective Interval history: Doing better today. On O2 5 L. Used BIPAP at HS. No chest pain but has some wheezing. Physical Exam Vital signs: Vital Signs 02/03/18 14:39 02/03/18 16:00 02/03/18 20:00 Temperature 98.6 F 98.5 F Pulse Rate 69 77 80 Respiratory Rate 15 54 H 27 H Blood Pressure 202/139 H 168/75 H Pulse Oximetry 89 L 89 L 02/03/18 20:55 02/03/18 21:15 02/04/18 00:00 Temperature 98.8 F Pulse Rate 76 65 Respiratory Rate 24 26 H Blood Pressure 152/68 H Pulse Oximetry 93 L 91 L 91 L 02/04/18 00:24 02/04/18 00:28 02/04/18 01:59 Temperature Pulse Rate 55 L Respiratory Rate 30 H Blood Pressure Pulse Oximetry 91 L 89 L 02/04/18 04:00 02/04/18 04:08 02/04/18 04:10 Temperature 98.5 F Pulse Rate 53 L 56 L Respiratory Rate 21 23 Blood Pressure 155/72 H Pulse Oximetry 90 L 88 L 02/04/18 07:57 02/04/18 08:00 02/04/18 09:00 Temperature 97.3 F L Pulse Rate 55 L 72 72 Respiratory Rate 20 32 H Blood Pressure 161/98 H Pulse Oximetry 94 L 100 02/04/18 10:53 02/04/18 12:00 Temperature 97.5 F L Pulse Rate 69 67 Respiratory Rate 16 33 H Blood Pressure 160/70 H Pulse Oximetry 92 L Intake & Output 02/03/18 02/04/18 02/04/18 18:59 06:59 18:59 Intake Total 1100 / 1100 700 / 700 100 / 100 Output Total 1999 Balance -900 / -900 700 / 700 100 / 100 Weight 101.1 kg Intake: IV 300 / 300 100 / 100 100 / 100 Maxipime Inj 2,000 MG In NS Inj 300 / 300 100 / 100 100 / 100 100 ML @ 200 mls/hr IV.SIG Q8H RHONDA Rx#:[id number] Oral 800 / 800 600 / 600 Output: Urine 1999 Other: # Voids 5 Date of Last Bowel Movement 02/02/18 02/02/18 02/02/18 GENERAL: Obese mid aged W/F alert oriented. SKIN: Warm and dry. HEAD: Normocephalic. EYES: No scleral icterus. No injection or drainage. NECK: Supple, trachea midline. No JVD or lymphadenopathy. CARDIOVASCULAR: Regular rate and rhythm without murmurs, gallops, or rubs. RESPIRATORY: Breath sounds equal bilaterally. Bilateral wheeze.No accessory muscle use. GASTROINTESTINAL: Abdomen soft, non-tender, nondistended. MUSCULOSKELETAL: No cyanosis,but has edema. BACK: Nontender without obvious deformity. No CVA tenderness. Results - Labs CBC & Chem 7: 02/04/18 05:43 02/04/18 05:43 Laboratory Results - last 24 hr 02/03/18 02/03/18 02/03/18 17:14 20:01 23:40 WBC RBC Hgb Hct MCV MCH MCHC RDW Plt Count MPV Neut % (Auto) Lymph % (Auto) [place] % (Auto) Eos % (Auto) Baso % (Auto) Neut # (Auto) Lymph # (Auto) [place] # (Auto) Eos # (Auto) Baso # (Auto) WBC Differential Differential Comment Puncture Site Patient Temperature O2 Saturation ABG pH ABG pCO2 ABG pO2 ABG HCO3 ABG O2 Content ABG Base Excess ABG Methemoglobin Karlos Test Hemoglobin Carboxyhemoglobin O2 Delivery Device Inspired O2 Critical Value Sodium Potassium Chloride Carbon Dioxide Anion Gap BUN Creatinine Estimated GFR POC Glucose 271 H 290 H 244 H Random Glucose Calcium Phosphorus Magnesium Total Bilirubin AST ALT Alkaline Phosphatase Total Protein Albumin 02/04/18 02/04/18 02/04/18 05:09 05:43 05:43 WBC 9.0 RBC 5.53 H Hgb 16.2 H Hct 49.8 H MCV 90.1 MCH 29.3 MCHC 32.5 RDW 15.9 Plt Count 236 MPV 9.1 Neut % (Auto) 93.3 H Lymph % (Auto) 5.0 L [place] % (Auto) 1.5 Eos % (Auto) 0.0 Baso % (Auto) 0.2 Neut # (Auto) 8.4 H Lymph # (Auto) 0.4 L [place] # (Auto) 0.1 Eos # (Auto) 0.0 Baso # (Auto) 0.0 WBC Differential . Differential Comment Auto diff final Puncture Site Right radial Patient Temperature 98.6 O2 Saturation 90 ABG pH 7.29 L* ABG pCO2 75 H* ABG pO2 73 ABG HCO3 35 H ABG O2 Content 19.7 ABG Base Excess 8.1 H ABG Methemoglobin 1.5 Karlos Test + Hemoglobin 15.6 Carboxyhemoglobin 1.0 O2 Delivery Device Bipap Inspired O2 75 Critical Value Yes Sodium 140 Potassium 4.4 Chloride 100 Carbon Dioxide 34.8 H Anion Gap 5 BUN 35 H Creatinine 1.16 H Estimated GFR 48 L POC Glucose Random Glucose 162 H Calcium 8.4 L Phosphorus 4.3 D Magnesium 2.0 Total Bilirubin 0.3 AST 12 L ALT 23 Alkaline Phosphatase 72 Total Protein 6.3 L Albumin 2.9 L 02/04/18 02/04/18 05:53 12:39 WBC RBC Hgb Hct MCV MCH MCHC RDW Plt Count MPV Neut % (Auto) Lymph % (Auto) [place] % (Auto) Eos % (Auto) Baso % (Auto) Neut # (Auto) Lymph # (Auto) [place] # (Auto) Eos # (Auto) Baso # (Auto) WBC Differential Differential Comment Puncture Site Patient Temperature O2 Saturation ABG pH ABG pCO2 ABG pO2 ABG HCO3 ABG O2 Content ABG Base Excess ABG Methemoglobin Karlos Test Hemoglobin Carboxyhemoglobin O2 Delivery Device Inspired O2 Critical Value Sodium Potassium Chloride Carbon Dioxide Anion Gap BUN Creatinine Estimated GFR POC Glucose 165 H 407 H Random Glucose Calcium Phosphorus Magnesium Total Bilirubin AST ALT Alkaline Phosphatase Total Protein Albumin Microbiology 02/04/18 12:00 Urine - Random Urine Streptococcus pneumoniae Antigen (M - Final Presumptive negative for streptococcus pneumoniae antigen, suggesting no current or recent infection. Infection due to Streptococcus pneumoniae cannot be ruled out since the antigen present in the sample may be below the detection limit of the test. 02/04/18 11:00 Nasal Wash Influenza Types A,B Antigen - Final Negative for FLU A and B antigen Infection due to influenza A or B cannot be ruled out since the antigen present in the sample may be below the detection limit of the test. - Imaging Impressions Chest X-Ray 02/04/18 06:00 CONCLUSION: Persistent consolidative infiltrates in both lungs, left greater than right. Assessment and Plan - Assessment (1) Respiratory failure Code(s): J96.90 - Respiratory failure, unspecified, unspecified whether with hypoxia or hypercapnia Status: Acute (2) Hypercapnic respiratory failure, chronic Code(s): J96.12 - Chronic respiratory failure with hypercapnia Status: Acute (3) COPD (chronic obstructive pulmonary disease) Code(s): J44.9 - Chronic obstructive pulmonary disease, unspecified Status: Acute (4) CHF (congestive heart failure) Code(s): I50.9 - Heart failure, unspecified Status: Acute (5) Hypertension Code(s): I10 - Essential (primary) hypertension Status: Acute (6) Sleep apnea Code(s): G47.30 - Sleep apnea, unspecified Status: Acute (7) Acute exacerbation of chronic bronchitis Code(s): J20.9 - Acute bronchitis, unspecified; J42 - Unspecified chronic bronchitis Status: Acute - Plan 1. Continue Solumedrol 40 MG IV Q8H 2.O2 at 5L and wean , keepsat >88 3. BiPAP at HS 8 PM to 8 AM 4. Cont antibiotics 5. Duoneb nebs qid. 6. Symbicort 160/4.5 mcg , 2 puffs BID
[2018-02-04] MEDS: Montelukast 10 MG Tablet PO SCH (17:20)
[2018-02-04] MEDS: Labetalol HCl Inj 100 MG/20 ML Vial IV.PUSH PRN (18:13)
[2018-02-04] MEDS: Enoxaparin Inj 40 MG/0.4 ML Syringe SQ SCH (20:12)
[2018-02-04] MEDS: Mupirocin 2% Nasal Oint Topical Syringe EACH NARE SCH (20:12)
[2018-02-04] MEDS ORDERED: Insulin Detemir Inj 1,000 UNIT/10 ML Vial SQ SCH ×2 (21:00)
--- NOTE | 2018-02-05 02:31 | XR ---
EXAM DATE: 02/05/2018 2:20 AM EDT AGE/SEX: 57 years / Female INDICATIONS: Shortness of breath, possible pulmonary disease. CLINICAL DATA: This is the patient's subsequent encounter. Patient reports that signs and symptoms h ave been present for 4 - 6 days and indicates a pain score of 0/10. MEDICAL/SURGICAL HISTORY: Chronic obstructive pulmonary disease. Congestive heart failure. Di abetes. section. COMPARISON: C, CHEST 1V SINGLE AP, 02/04/2018. . FINDINGS: Perihilar airspace disease bilaterally. No effusion. No pneumothorax. Heart size enlarged. CONCLUSION: Bilateral perihilar airspace disease. No effusion or pneumothorax. Electronically signed by: Galileo Pagan MD 02/05/2018 2:29 AM EDT
[2018-02-05] MEDS: MethylPREDNISolone Sod Succinate Inj 40 MG/ML Vial IV.PUSH SCH ×3 (02:48→17:23)
[2018-02-05 05:54] LABS: ABG Base Excess 6.7 mmol/L (-2-2); ABG PCO2 70 mmHg (38-42); ABG PO2 66 mmHG (61-120)
[2018-02-05] MEDS: Chlorhexidine Gluconate 2% 1 Pack (2 Cloths) TOPICAL SCH (06:23)
[2018-02-05 06:46] LABS: Hematocrit 50.9 % (35.0-46.0); Lymph # (Auto) 0.4 th/mm3 (1.0-4.8); Lymph % (Auto) 4.9 % (9.0-44.0); Mean Corpuscular HGB Conc 31.4 % (32.0-36.0); Mean Corpuscular Hemoglobin 28.9 pg (27.0-34.0); Mean Corpuscular Volume 92.1 fL (80.0-100.0); Mean Platelet Volume 9.3 fL (7.0-11.0); Mono # (Auto) 0.4 th/mm3 (0.0-0.9); Mono % (Auto) 4.8 % (0.0-8.0); Neut # (Auto) 7.5 th/mm3 (1.8-7.7); Neut % (Auto) 90.3 % (16.0-70.0); Platelet Count 213 th/mm3 (150-450); Red Blood Count 5.53 mil/mm3 (4.00-5.30); Red Cell Distribution Width 16.4 % (11.6-17.2); White Blood Count 8.3 th/mm3 (4.0-11.0)
[2018-02-05 07:22] LABS: Alanine Aminotransferase 21 U/L (10-53); Albumin 2.7 g/dL (3.4-5.0); Anion Gap 7 meq/L (5-15); Aspartate Aminotransferase 11 U/L (15-37); Blood Urea Nitrogen 33 mg/dL (7-18); Calcium 8.5 mg/dL (8.5-10.1); Carbon Dioxide 32.5 meq/L (21.0-32.0); Chloride 103 meq/L (98-107); Glomerular Filtration Rate 50 mL/min (>89); Glucose,Random 145 mg/dL (74-106); Magnesium 2.2 mg/dL (1.5-2.5); Phosphorus 3.6 mg/dL (2.5-4.9); Potassium 4.3 meq/L (3.5-5.1); Sodium 142 meq/L (136-145)
[2018-02-05 07:24] LABS: Alkaline Phosphatase 79 U/L (45-117)
--- NOTE | 2018-02-05 08:29 | P.PNIM ---
Subjective Interval history: f/u; respiratory failure/ COPD exacerbation with mild sob and on five liters of oxygen via N/C. says that she's now much more comfortable and sob is improving. no cough or fever. BP trend noted. Physical Exam Vital signs: Vital Signs 02/04/18 09:00 02/04/18 10:53 02/04/18 12:00 Temperature 97.5 F L Pulse Rate 72 69 67 Respiratory Rate 16 33 H Blood Pressure 160/70 H Pulse Oximetry 92 L 02/04/18 15:11 02/04/18 16:00 02/04/18 20:00 Temperature 98.0 F 98.5 F Pulse Rate 92 H 71 74 Respiratory Rate 20 32 H 28 H Blood Pressure 163/84 H 112/87 Pulse Oximetry 89 L 88 L 02/04/18 20:53 02/05/18 00:00 02/05/18 01:08 Temperature 98.2 F Pulse Rate 63 59 L Respiratory Rate 24 24 Blood Pressure 188/89 H Pulse Oximetry 88 L 94 L 02/05/18 04:00 02/05/18 05:36 02/05/18 07:53 Temperature 97.6 F Pulse Rate 70 70 90 Respiratory Rate 17 20 24 Blood Pressure 180/84 H Pulse Oximetry 98 90 L Intake & Output 02/04/18 02/05/18 02/05/18 18:59 06:59 18:59 Intake Total 1800 / 1800 1200 / 1200 Output Total 1700 / 1700 Balance 100 / 100 1200 / 1200 Weight 103.2 kg Intake: IV 300 / 300 200 / 200 Maxipime Inj 2,000 MG In NS Inj 200 / 200 100 / 100 100 ML @ 200 mls/hr IV.SIG Q8H RHONDA Rx#:[id number] Doxy 100 Inj 100 MG In NS Inj 100 / 100 100 / 100 100 ML @ 100 mls/hr IV.SIG Q12H RHONDA Rx#:[id number] Oral 1500 / 1500 1000 / 1000 Output: Urine 1700 / 1700 Other: # Voids 3 Date of Last Bowel Movement 02/04/18 02/04/18 # Bowel Movements 1 1 - Constitutional mild distress - Routine Respiratory Exam Present: CTA bilaterally Comments: diminished air entry in bases. - Routine Cardiovascular Exam Present: RRR - Routine Abdominal Exam Present: soft - Routine Extremities Exam Comments: no pedal edema. - Routine Neurological Exam Present: alert, oriented X3 Results - Labs CBC & Chem 7: 02/05/18 05:51 02/05/18 05:51 Laboratory Results - last 24 hr 02/04/18 02/04/18 02/04/18 12:39 17:21 20:06 WBC RBC Hgb Hct MCV MCH MCHC RDW Plt Count MPV Neut % (Auto) Lymph % (Auto) [place] % (Auto) Eos % (Auto) Baso % (Auto) Neut # (Auto) Lymph # (Auto) [place] # (Auto) Eos # (Auto) Baso # (Auto) WBC Differential Differential Comment Puncture Site Patient Temperature O2 Saturation ABG pH ABG pCO2 ABG pO2 ABG HCO3 ABG O2 Content ABG Base Excess ABG Methemoglobin Karlos Test Hemoglobin Carboxyhemoglobin O2 Delivery Device Liter Flow Inspired O2 Critical Value Sodium Potassium Chloride Carbon Dioxide Anion Gap BUN Creatinine Estimated GFR POC Glucose 407 H 372 H 425 H Random Glucose Calcium Phosphorus Magnesium Total Bilirubin AST ALT Alkaline Phosphatase Total Protein Albumin 02/05/18 02/05/18 02/05/18 05:37 05:51 05:51 WBC 8.3 RBC 5.53 H Hgb 16.0 H Hct 50.9 H MCV 92.1 MCH 28.9 MCHC 31.4 L RDW 16.4 Plt Count 213 MPV 9.3 Neut % (Auto) 90.3 H Lymph % (Auto) 4.9 L [place] % (Auto) 4.8 Eos % (Auto) 0.0 Baso % (Auto) 0.0 Neut # (Auto) 7.5 Lymph # (Auto) 0.4 L [place] # (Auto) 0.4 Eos # (Auto) 0.0 Baso # (Auto) 0.0 WBC Differential . Differential Comment Auto diff final Puncture Site Right radial Patient Temperature 98.6 O2 Saturation 87 L* ABG pH 7.29 L* ABG pCO2 70 H* ABG pO2 66 ABG HCO3 33 H ABG O2 Content 20.4 H ABG Base Excess 6.7 H ABG Methemoglobin 1.4 Karlos Test + Hemoglobin 16.6 H Carboxyhemoglobin 0.8 O2 Delivery Device Nasal cannula Liter Flow 5.00 Inspired O2 40 Critical Value Yes Sodium 142 Potassium 4.3 Chloride 103 Carbon Dioxide 32.5 H Anion Gap 7 BUN 33 H Creatinine 1.13 H Estimated GFR 50 L POC Glucose Random Glucose 145 H Calcium 8.5 Phosphorus 3.6 Magnesium 2.2 Total Bilirubin 0.4 AST 11 L ALT 21 Alkaline Phosphatase 79 Total Protein 6.0 L Albumin 2.7 L Microbiology 02/04/18 11:00 Sputum - Expectorated Sputum Gram Stain - Final 02/04/18 12:00 Urine - Random Urine Streptococcus pneumoniae Antigen (M - Final Presumptive negative for streptococcus pneumoniae antigen, suggesting no current or recent infection. Infection due to Streptococcus pneumoniae cannot be ruled out since the antigen present in the sample may be below the detection limit of the test. 02/04/18 11:00 Nasal Wash Influenza Types A,B Antigen - Final Negative for FLU A and B antigen Infection due to influenza A or B cannot be ruled out since the antigen present in the sample may be below the detection limit of the test. - Imaging Impressions Chest X-Ray 02/05/18 06:00 CONCLUSION: Bilateral perihilar airspace disease. No effusion or pneumothorax. Assessment and Plan - Plan A/P acute hypoxemic and hypercapnic respiratory failure/Acute Severe COPD exacerbation/Probable bilateral pneumonia continue with oxygen/ neb treatment; scheduled and prn- continue IV antibiotics and Iv steroid and Symbicort. BiPaP at night. will deescalate the antibiotic regimen pending the cultures and clinical course. pulmonary following. patient is on four liters of oxygen at home. counselled on smoking cessation. 4 mm noncalcified nodule within the right upper lobe -recommended follow-up CT thorax within the next 12 months Hypertension; continue lisinopril and coreg- will add norvasc and continue to monitor and adjust the regimen as needed. Diabetes mellitus- not well controlled. will increase levemir and continue with accu-check with SSI- blood sugar levels expected to improve as the steroids being tapered off. DVT prophylaxis with subq Lovenox. continue PT. Discharge Planning: when medically stable- expected to stay for another two-three days.
[2018-02-05] MEDS: Mupirocin 2% Nasal Oint Topical Syringe EACH NARE SCH ×2 (09:14→20:21)
[2018-02-05] MEDS: FLUoxetine 10 MG Capsule PO SCH (09:16)
[2018-02-05] MEDS: Famotidine 20 MG Tablet PO SCH ×2 (09:16→20:21)
[2018-02-05] MEDS: Gabapentin 400 MG Capsule PO SCH ×3 (09:16→17:22)
[2018-02-05] MEDS: amLODIPine 5 MG Tablet PO SCH (09:17)
[2018-02-05] MEDS: Insulin Detemir Inj 1,000 UNIT/10 ML Vial SQ SCH ×2 (09:17→20:58)
[2018-02-05] MEDS: Carvedilol 12.5 MG Tablet PO SCH ×2 (09:17→20:21)
[2018-02-05] MEDS: Senna/Docusate Sodium 8.6/50 MG Tablet PO SCH ×2 (09:18→20:22)
[2018-02-05] MEDS: Furosemide 40 MG Tablet PO SCH (09:18)
[2018-02-05] MEDS: Lisinopril 20 MG Tablet PO SCH (09:19)
[2018-02-05] MEDS: Budesonide-Formoterol 160/4.5 MCG 6 GM Inhaler INH SCH ×2 (09:20→20:23)
[2018-02-05] MEDS: Labetalol HCl Inj 100 MG/20 ML Vial IV.PUSH PRN ×2 (12:01→17:22)
--- NOTE | 2018-02-05 12:12 | P.PN ---
Subjective Interval history: Cannot sleep. SOB at rest. On O2 5 L Physical Exam Vital signs: Vital Signs 02/04/18 15:11 02/04/18 16:00 02/04/18 20:00 Temperature 98.0 F 98.5 F Pulse Rate 92 H 71 74 Respiratory Rate 20 32 H 28 H Blood Pressure 163/84 H 112/87 Pulse Oximetry 89 L 88 L 02/04/18 20:53 02/05/18 00:00 02/05/18 01:08 Temperature 98.2 F Pulse Rate 63 59 L Respiratory Rate 24 24 Blood Pressure 188/89 H Pulse Oximetry 88 L 94 L 02/05/18 04:00 02/05/18 05:36 02/05/18 07:53 Temperature 97.6 F Pulse Rate 70 70 90 Respiratory Rate 17 20 24 Blood Pressure 180/84 H Pulse Oximetry 98 90 L 02/05/18 08:00 02/05/18 09:00 02/05/18 11:03 Temperature 98.5 F Pulse Rate 67 67 71 Respiratory Rate 22 24 Blood Pressure 172/80 H Pulse Oximetry 90 L Intake & Output 02/04/18 02/05/18 02/05/18 18:59 06:59 18:59 Intake Total 1800 / 1800 1200 / 1200 Output Total 1700 / 1700 Balance 100 / 100 1200 / 1200 Weight 103.2 kg Intake: IV 300 / 300 200 / 200 Maxipime Inj 2,000 MG In NS Inj 200 / 200 100 / 100 100 ML @ 200 mls/hr IV.SIG Q8H RHONDA Rx#:[id number] Doxy 100 Inj 100 MG In NS Inj 100 / 100 100 / 100 100 ML @ 100 mls/hr IV.SIG Q12H RHONDA Rx#:[id number] Oral 1500 / 1500 1000 / 1000 Output: Urine 1700 / 1700 Other: # Voids 3 Date of Last Bowel Movement 02/04/18 02/04/18 02/04/18 # Bowel Movements 1 1 GENERAL: Obese mid aged W/F SKIN: Warm and dry. HEAD: Normocephalic. EYES: No scleral icterus. No injection or drainage. NECK: Supple, trachea midline. No JVD or lymphadenopathy. CARDIOVASCULAR: Regular rate and rhythm without murmurs, gallops, or rubs. RESPIRATORY: Breath sounds equal bilaterally.Bilateral wheeze. No accessory muscle use. GASTROINTESTINAL: Abdomen soft, non-tender, nondistended. MUSCULOSKELETAL: No cyanosis, or edema. BACK: Nontender without obvious deformity. No CVA tenderness.Neuro : No deficits Results - Labs CBC & Chem 7: 02/05/18 05:51 02/05/18 05:51 Laboratory Results - last 24 hr 02/04/18 02/04/18 02/04/18 12:39 17:21 20:06 WBC RBC Hgb Hct MCV MCH MCHC RDW Plt Count MPV Neut % (Auto) Lymph % (Auto) [place] % (Auto) Eos % (Auto) Baso % (Auto) Neut # (Auto) Lymph # (Auto) [place] # (Auto) Eos # (Auto) Baso # (Auto) WBC Differential Differential Comment Puncture Site Patient Temperature O2 Saturation ABG pH ABG pCO2 ABG pO2 ABG HCO3 ABG O2 Content ABG Base Excess ABG Methemoglobin Karlos Test Hemoglobin Carboxyhemoglobin O2 Delivery Device Liter Flow Inspired O2 Critical Value Sodium Potassium Chloride Carbon Dioxide Anion Gap BUN Creatinine Estimated GFR POC Glucose 407 H 372 H 425 H Random Glucose Calcium Phosphorus Magnesium Total Bilirubin AST ALT Alkaline Phosphatase Total Protein Albumin 02/05/18 02/05/18 02/05/18 05:37 05:51 05:51 WBC 8.3 RBC 5.53 H Hgb 16.0 H Hct 50.9 H MCV 92.1 MCH 28.9 MCHC 31.4 L RDW 16.4 Plt Count 213 MPV 9.3 Neut % (Auto) 90.3 H Lymph % (Auto) 4.9 L [place] % (Auto) 4.8 Eos % (Auto) 0.0 Baso % (Auto) 0.0 Neut # (Auto) 7.5 Lymph # (Auto) 0.4 L [place] # (Auto) 0.4 Eos # (Auto) 0.0 Baso # (Auto) 0.0 WBC Differential . Differential Comment Auto diff final Puncture Site Right radial Patient Temperature 98.6 O2 Saturation 87 L* ABG pH 7.29 L* ABG pCO2 70 H* ABG pO2 66 ABG HCO3 33 H ABG O2 Content 20.4 H ABG Base Excess 6.7 H ABG Methemoglobin 1.4 Karlos Test + Hemoglobin 16.6 H Carboxyhemoglobin 0.8 O2 Delivery Device Nasal cannula Liter Flow 5.00 Inspired O2 40 Critical Value Yes Sodium 142 Potassium 4.3 Chloride 103 Carbon Dioxide 32.5 H Anion Gap 7 BUN 33 H Creatinine 1.13 H Estimated GFR 50 L POC Glucose Random Glucose 145 H Calcium 8.5 Phosphorus 3.6 Magnesium 2.2 Total Bilirubin 0.4 AST 11 L ALT 21 Alkaline Phosphatase 79 Total Protein 6.0 L Albumin 2.7 L 02/05/18 02/05/18 08:50 11:35 WBC RBC Hgb Hct MCV MCH MCHC RDW Plt Count MPV Neut % (Auto) Lymph % (Auto) [place] % (Auto) Eos % (Auto) Baso % (Auto) Neut # (Auto) Lymph # (Auto) [place] # (Auto) Eos # (Auto) Baso # (Auto) WBC Differential Differential Comment Puncture Site Patient Temperature O2 Saturation ABG pH ABG pCO2 ABG pO2 ABG HCO3 ABG O2 Content ABG Base Excess ABG Methemoglobin Karlos Test Hemoglobin Carboxyhemoglobin O2 Delivery Device Liter Flow Inspired O2 Critical Value Sodium Potassium Chloride Carbon Dioxide Anion Gap BUN Creatinine Estimated GFR POC Glucose 164 H 262 H Random Glucose Calcium Phosphorus Magnesium Total Bilirubin AST ALT Alkaline Phosphatase Total Protein Albumin Microbiology 02/04/18 12:35 Blood - Peripheral Aerobic Blood Culture - Preliminary No growth in 1 day 02/04/18 12:35 Blood - Peripheral Anaerobic Blood Culture - Preliminary No growth in 1 day 02/04/18 12:27 Blood - Peripheral Aerobic Blood Culture - Preliminary No growth in 1 day 02/04/18 12:27 Blood - Peripheral Anaerobic Blood Culture - Preliminary No growth in 1 day 02/04/18 12:00 Urine - Random Urine Legionella Antigen - Final Presumptive negative for Legionella pneumophila serogroup 1 antigen in urine, suggesting no recent or recurrent infection. Infection due to Legionella cannot be ruled out since other serogroups and species may cause disease, antigen may not be present in urine in early infection, and the level of antigen present in the urine may be below the detection limit of the test. 02/04/18 11:00 Sputum - Expectorated Sputum Gram Stain - Final 02/04/18 12:00 Urine - Random Urine Streptococcus pneumoniae Antigen (M - Final Presumptive negative for streptococcus pneumoniae antigen, suggesting no current or recent infection. Infection due to Streptococcus pneumoniae cannot be ruled out since the antigen present in the sample may be below the detection limit of the test. 02/04/18 11:00 Nasal Wash Influenza Types A,B Antigen - Final Negative for FLU A and B antigen Infection due to influenza A or B cannot be ruled out since the antigen present in the sample may be below the detection limit of the test. - Imaging Impressions Chest X-Ray 02/05/18 06:00 CONCLUSION: Bilateral perihilar airspace disease. No effusion or pneumothorax. Assessment and Plan - Assessment (1) Respiratory failure Code(s): J96.90 - Respiratory failure, unspecified, unspecified whether with hypoxia or hypercapnia Status: Acute (2) Hypercapnic respiratory failure, chronic Code(s): J96.12 - Chronic respiratory failure with hypercapnia Status: Acute (3) COPD (chronic obstructive pulmonary disease) Code(s): J44.9 - Chronic obstructive pulmonary disease, unspecified Status: Acute (4) CHF (congestive heart failure) Code(s): I50.9 - Heart failure, unspecified Status: Acute (5) Hypertension Code(s): I10 - Essential (primary) hypertension Status: Acute (6) Sleep apnea Code(s): G47.30 - Sleep apnea, unspecified Status: Acute (7) Acute exacerbation of chronic bronchitis Code(s): J20.9 - Acute bronchitis, unspecified; J42 - Unspecified chronic bronchitis Status: Acute - Plan 1. Continue Solumedrol 40 MG IV Q8H 2.O2 at 5L and wean , keep sat >88 3. BiPAP at HS 8 PM to 8 AM 4. Cont antibiotics 5. Duoneb nebs qid. 6. Symbicort 160/4.5 mcg , 2 puffs BID 7. CBC,BMP in am
[2018-02-05] MEDS: Montelukast 10 MG Tablet PO SCH (17:22)
[2018-02-05] MEDS: Enoxaparin Inj 40 MG/0.4 ML Syringe SQ SCH (20:21)
[2018-02-06] MEDS: MethylPREDNISolone Sod Succinate Inj 40 MG/ML Vial IV.PUSH SCH ×4 (01:46→21:27)
[2018-02-06] MEDS: ALPRAZolam 0.25 MG Tablet PO PRN (02:07)
[2018-02-06] MEDS: Chlorhexidine Gluconate 2% 1 Pack (2 Cloths) TOPICAL SCH (03:49)
[2018-02-06 06:11] LABS: Calcium 8.6 mg/dL (8.5-10.1); Carbon Dioxide 36.2 meq/L (21.0-32.0); Potassium 4.4 meq/L (3.5-5.1)
[2018-02-06] MEDS: Lisinopril 20 MG Tablet PO SCH (08:35)
[2018-02-06] MEDS: Famotidine 20 MG Tablet PO SCH ×2 (08:35→21:25)
[2018-02-06] MEDS: Gabapentin 400 MG Capsule PO SCH ×3 (08:35→17:15)
[2018-02-06] MEDS: Senna/Docusate Sodium 8.6/50 MG Tablet PO SCH ×2 (08:36→21:27)
[2018-02-06] MEDS: FLUoxetine 10 MG Capsule PO SCH (08:36)
[2018-02-06] MEDS: Carvedilol 12.5 MG Tablet PO SCH ×2 (08:36→21:25)
[2018-02-06] MEDS: amLODIPine 5 MG Tablet PO SCH (08:36)
[2018-02-06] MEDS: Mupirocin 2% Nasal Oint Topical Syringe EACH NARE SCH ×2 (08:36→21:27)
[2018-02-06] MEDS: Furosemide 40 MG Tablet PO SCH (08:36)
[2018-02-06] MEDS: Insulin Detemir Inj 1,000 UNIT/10 ML Vial SQ SCH ×2 (08:37→21:37)
[2018-02-06] MEDS: Budesonide-Formoterol 160/4.5 MCG 6 GM Inhaler INH SCH ×2 (08:37→21:27)
--- NOTE | 2018-02-06 11:24 | P.PNIM ---
Subjective Interval history: Patient reports she is feeling better. She is still requiring 5 L of oxygen with a nasal cannula. Denies any cough. Physical Exam Vital signs: Vital Signs 02/05/18 12:00 02/05/18 15:36 02/05/18 16:00 Temperature 97.9 F 97.8 F Pulse Rate 63 58 L 63 Respiratory Rate 26 H 26 H Blood Pressure 168/78 H 193/100 H Pulse Oximetry 89 L 88 L 02/05/18 20:00 02/05/18 20:56 02/05/18 22:49 Temperature 98.5 F Pulse Rate 68 Respiratory Rate 22 Blood Pressure 145/89 H Pulse Oximetry 86 L 90 L 92 L 02/06/18 00:00 02/06/18 04:00 02/06/18 08:00 Temperature 98.2 F 98.4 F Pulse Rate 56 L 84 Respiratory Rate 26 H 22 Blood Pressure 166/83 H 168/77 H Pulse Oximetry 89 L 90 L 90 L Intake & Output 02/05/18 02/06/18 02/06/18 18:59 06:59 18:59 Intake Total 1600 / 1600 920 / 920 Output Total 2850 / 2850 1999 Balance -1250 / -1250 -1080 / -1080 Weight 102 kg Intake: IV 200 / 200 200 / 200 Maxipime Inj 2,000 MG In NS Inj 100 / 100 100 / 100 100 ML @ 200 mls/hr IV.SIG Q12H RHONDA Rx#:[id number] Doxy 100 Inj 100 MG In NS Inj 100 / 100 100 / 100 100 ML @ 100 mls/hr IV.SIG Q12H RHONDA Rx#:[id number] Oral 1400 / 1400 720 / 720 Output: Urine 2850 / 2850 1999 Other: # Voids 8 # Incontinent Voids 0 Date of Last Bowel Movement 02/05/18 02/05/18 02/05/18 # Bowel Movements 0 Narrative: GENERAL: Obese female in no acute distress. CARDIOVASCULAR: Normal rate and regular rhythm without murmurs, gallops, or rubs. RESPIRATORY: Diminished breath sounds bilaterally, occasional wheezing. GASTROINTESTINAL: Abdomen soft, non-tender, non-distended. Normal active bowel sounds MUSCULOSKELETAL: Extremities without cyanosis, or edema. NEURO: Alert & Oriented x4 to person, place, time, situation. Moves all ext x4 PSYCH: Appropriate mood and affect. Results - Labs CBC & Chem 7: 02/05/18 05:51 02/06/18 04:40 Laboratory Results - last 24 hr 02/05/18 02/05/18 02/05/18 11:35 16:45 20:15 Sodium Potassium Chloride Carbon Dioxide Anion Gap BUN Creatinine Estimated GFR POC Glucose 262 H 322 H 505 H* Random Glucose Calcium 02/05/18 02/06/18 02/06/18 20:50 04:40 08:31 Sodium 140 Potassium 4.4 Chloride 100 Carbon Dioxide 36.2 H Anion Gap 4 L BUN 30 H Creatinine 0.98 Estimated GFR 59 L POC Glucose 207 H Random Glucose 519 H* D 198 H D Calcium 8.6 Microbiology 02/04/18 12:35 Blood - Peripheral Aerobic Blood Culture - Preliminary No growth in 2 days 02/04/18 12:35 Blood - Peripheral Anaerobic Blood Culture - Preliminary No growth in 2 days 02/04/18 12:27 Blood - Peripheral Aerobic Blood Culture - Preliminary No growth in 2 days 02/04/18 12:27 Blood - Peripheral Anaerobic Blood Culture - Preliminary No growth in 2 days 02/04/18 11:00 Sputum - Expectorated Sputum Gram Stain - Final 02/04/18 11:00 Sputum - Expectorated Sputum Sputum Culture - Preliminary Heavy growth normal respiratory nicolás at 24 hours 02/04/18 12:00 Urine - Random Urine Legionella Antigen - Final Presumptive negative for Legionella pneumophila serogroup 1 antigen in urine, suggesting no recent or recurrent infection. Infection due to Legionella cannot be ruled out since other serogroups and species may cause disease, antigen may not be present in urine in early infection, and the level of antigen present in the urine may be below the detection limit of the test. Assessment and Plan - Plan 57-year-old female with: acute hypoxemic and hypercapnic respiratory failure/Acute Severe COPD exacerbation/Probable bilateral pneumonia continue with oxygen/ neb treatment; scheduled and prn- continue IV steroids, changed to p.o. doxycycline. Continue Symbicort. pulmonary following. patient is on four liters of oxygen at home. counselled on smoking cessation. 4 mm noncalcified nodule within the right upper lobe -recommended follow-up CT thorax within the next 12 months Hypertension; continue lisinopril and coreg-increase Norvasc to 10 mg daily Diabetes mellitus- not well controlled. Continue with increased dose of Levemir and continue with accu-check with SSI- blood sugar levels expected to improve as the steroids being tapered off. DVT prophylaxis with subq Lovenox. continue PT. Discharge Planning: Stable for transfer to floor.
[2018-02-06] MEDS: Labetalol HCl Inj 100 MG/20 ML Vial IV.PUSH PRN (14:32)
[2018-02-06] MEDS: Montelukast 10 MG Tablet PO SCH (17:15)
--- NOTE | 2018-02-06 19:18 | P.PN ---
Subjective Interval history: She is better today . On o2 5 L. Used BIPAP last Night. Good output. Physical Exam Vital signs: Vital Signs 02/05/18 20:00 02/05/18 20:56 02/05/18 22:49 Temperature 98.5 F Pulse Rate 68 Respiratory Rate 22 Blood Pressure 145/89 H Pulse Oximetry 86 L 90 L 92 L 02/06/18 00:00 02/06/18 04:00 02/06/18 08:00 Temperature 98.2 F 98.4 F 97.6 F Pulse Rate 56 L 84 92 H Respiratory Rate 26 H 22 21 Blood Pressure 166/83 H 168/77 H 157/95 H Pulse Oximetry 89 L 90 L 92 L 02/06/18 09:00 02/06/18 12:00 02/06/18 16:00 Temperature 98.1 F 98.8 F Pulse Rate 69 60 62 Respiratory Rate 33 H 18 Blood Pressure 179/86 H 167/83 H Pulse Oximetry 90 L 93 L Intake & Output 02/06/18 02/06/18 02/07/18 06:59 18:59 06:59 Intake Total 920 / 920 450 / 450 Output Total 1999 Balance -1080 / -1080 450 / 450 Weight 102 kg Intake: IV 200 / 200 200 / 200 Maxipime Inj 2,000 MG In NS Inj 100 / 100 100 / 100 100 ML @ 200 mls/hr IV.SIG Q12H RHONDA Rx#:[id number] Doxy 100 Inj 100 MG In NS Inj 100 / 100 100 / 100 100 ML @ 100 mls/hr IV.SIG Q12H RHONDA Rx#:[id number] Oral 720 / 720 250 / 250 Output: Urine 1999 Other: Date of Last Bowel Movement 02/05/18 02/05/18 # Bowel Movements 0 Narrative: GENERAL: Obese female in no acute distress. CARDIOVASCULAR: Normal rate and regular rhythm without murmurs, gallops, or rubs. RESPIRATORY: Diminished breath sounds bilaterally, Bilateral wheezing. GASTROINTESTINAL: Abdomen soft, non-tender, non-distended. Normal active bowel sounds MUSCULOSKELETAL: Extremities without cyanosis, or edema. NEURO: Alert & Oriented x4 to person, place, time, situation. Moves all ext x4 PSYCH: Appropriate mood and affect. Results - Labs CBC & Chem 7: 02/05/18 05:51 02/06/18 04:40 Laboratory Results - last 24 hr 02/05/18 02/05/18 02/06/18 20:15 20:50 04:40 Sodium 140 Potassium 4.4 Chloride 100 Carbon Dioxide 36.2 H Anion Gap 4 L BUN 30 H Creatinine 0.98 Estimated GFR 59 L POC Glucose 505 H* Random Glucose 519 H* D 198 H D Calcium 8.6 02/06/18 02/06/18 02/06/18 08:31 12:25 16:53 Sodium Potassium Chloride Carbon Dioxide Anion Gap BUN Creatinine Estimated GFR POC Glucose 207 H 246 H 301 H Random Glucose Calcium Microbiology 02/04/18 11:00 Sputum - Expectorated Sputum Gram Stain - Final 02/04/18 11:00 Sputum - Expectorated Sputum Sputum Culture - Final Heavy growth normal respiratory nicolás 02/04/18 12:35 Blood - Peripheral Aerobic Blood Culture - Preliminary No growth in 2 days 02/04/18 12:35 Blood - Peripheral Anaerobic Blood Culture - Preliminary No growth in 2 days 02/04/18 12:27 Blood - Peripheral Aerobic Blood Culture - Preliminary No growth in 2 days 02/04/18 12:27 Blood - Peripheral Anaerobic Blood Culture - Preliminary No growth in 2 days Assessment and Plan - Assessment (1) Respiratory failure Code(s): J96.90 - Respiratory failure, unspecified, unspecified whether with hypoxia or hypercapnia Status: Acute (2) Hypercapnic respiratory failure, chronic Code(s): J96.12 - Chronic respiratory failure with hypercapnia Status: Acute (3) COPD (chronic obstructive pulmonary disease) Code(s): J44.9 - Chronic obstructive pulmonary disease, unspecified Status: Acute (4) CHF (congestive heart failure) Code(s): I50.9 - Heart failure, unspecified Status: Acute (5) Hypertension Code(s): I10 - Essential (primary) hypertension Status: Acute (6) Sleep apnea Code(s): G47.30 - Sleep apnea, unspecified Status: Acute (7) Acute exacerbation of chronic bronchitis Code(s): J20.9 - Acute bronchitis, unspecified; J42 - Unspecified chronic bronchitis Status: Acute - Plan 1. Continue Solumedrol 40 MG IV Q12H 2.O2 at 5L and wean , keep sat >88 3. BiPAP at HS 8 PM to 8 AM 4. Cont antibiotics as ordered 5. Duoneb nebs qid. 6. Symbicort 160/4.5 mcg , 2 puffs BID 7. Transfer to tele. 8. Will order home BiPAP set up upon discharge.
[2018-02-06] MEDS: Enoxaparin Inj 40 MG/0.4 ML Syringe SQ SCH (21:27)
[2018-02-07] MEDS: ALPRAZolam 0.25 MG Tablet PO PRN ×2 (01:07→21:32)
[2018-02-07 06:16] LABS: Hematocrit 51.7 % (35.0-46.0); Mean Corpuscular HGB Conc 32.9 % (32.0-36.0); Mean Corpuscular Hemoglobin 29.7 pg (27.0-34.0); Mean Corpuscular Volume 90.4 fL (80.0-100.0); Mean Platelet Volume 8.7 fL (7.0-11.0); Platelet Count 228 th/mm3 (150-450); Red Blood Count 5.72 mil/mm3 (4.00-5.30); White Blood Count 8.3 th/mm3 (4.0-11.0)
[2018-02-07 06:41] LABS: Calcium 8.8 mg/dL (8.5-10.1); Potassium 4.2 meq/L (3.5-5.1)
--- NOTE | 2018-02-07 11:28 | P.PN ---
Subjective Interval history: Follow-up respiratory failure and COPD. States she is better ambulating in the room without oxygen. Did not use BiPAP last night. Discussed with pulmonary keep patient another day and possible discharge in the morning. For her to get o/p BiPAP she will need to undergo sleep study first Physical Exam Vital signs: Vital Signs 02/06/18 12:00 02/06/18 16:00 02/06/18 20:00 Temperature 98.1 F 98.8 F 98.2 F Pulse Rate 60 62 59 L Respiratory Rate 33 H 18 22 Blood Pressure 179/86 H 167/83 H 176/84 H Pulse Oximetry 90 L 93 L 94 L 02/07/18 00:00 02/07/18 08:00 Temperature 98.2 F 98.1 F Pulse Rate 60 59 L Respiratory Rate 22 19 Blood Pressure 185/86 H 176/93 H Pulse Oximetry 92 L 96 Intake & Output 02/06/18 02/07/18 02/07/18 18:59 06:59 18:59 Intake Total 450 / 450 580 / 580 Balance 450 / 450 580 / 580 Weight 102.7 kg Intake: IV 200 / 200 100 / 100 Maxipime Inj 2,000 MG In NS Inj 100 / 100 100 / 100 100 ML @ 200 mls/hr IV.SIG Q12H [facility]ONDA Rx#:[id number] Doxy 100 Inj 100 MG In NS Inj 100 / 100 100 ML @ 100 mls/hr IV.SIG Q12H [facility]ONDA Rx#:[id number] Oral 250 / 250 480 / 480 Other: # Voids 2 Date of Last Bowel Movement 02/05/18 02/05/18 Narrative: GENERAL: Obese female in no acute distress. CARDIOVASCULAR: Normal rate and regular rhythm without murmurs, gallops, or rubs. RESPIRATORY: Diminished breath sounds bilaterally, no wheezing. GASTROINTESTINAL: Abdomen soft, non-tender, non-distended. Normal active bowel sounds MUSCULOSKELETAL: Extremities without cyanosis, or edema. NEURO: Alert & Oriented x4 to person, place, time, situation. Moves all ext x4 PSYCH: Appropriate mood and affect. Results - Labs CBC & Chem 7: 02/07/18 06:03 02/07/18 06:03 Laboratory Results - last 24 hr 02/06/18 02/06/18 02/06/18 12:25 16:53 21:32 WBC RBC Hgb Hct MCV MCH MCHC RDW Plt Count MPV Sodium Potassium Chloride Carbon Dioxide Anion Gap BUN Creatinine Estimated GFR POC Glucose 246 H 301 H 237 H Random Glucose Calcium 02/07/18 02/07/18 02/07/18 06:03 06:03 08:09 WBC 8.3 RBC 5.72 H Hgb 17.0 H Hct 51.7 H MCV 90.4 MCH 29.7 MCHC 32.9 RDW 16.0 Plt Count 228 MPV 8.7 Sodium 141 Potassium 4.2 Chloride 98 Carbon Dioxide 39.0 H Anion Gap 4 L BUN 25 H Creatinine 0.83 Estimated GFR 71 L POC Glucose 162 H Random Glucose 193 H Calcium 8.8 Microbiology 02/04/18 12:35 Blood - Peripheral Aerobic Blood Culture - Preliminary No growth in 3 days 02/04/18 12:35 Blood - Peripheral Anaerobic Blood Culture - Preliminary No growth in 3 days 02/04/18 12:27 Blood - Peripheral Aerobic Blood Culture - Preliminary No growth in 3 days 02/04/18 12:27 Blood - Peripheral Anaerobic Blood Culture - Preliminary No growth in 3 days 02/04/18 11:00 Sputum - Expectorated Sputum Gram Stain - Final 02/04/18 11:00 Sputum - Expectorated Sputum Sputum Culture - Final Heavy growth normal respiratory nicolás - Imaging ITS Impressions Chest CTA 02/01/18 15:47 CONCLUSION: 1. No evidence of pulmonary embolism. 2. Fibrotic scarring within the left upper lobe. 3. 4 mm noncalcified nodule within the right upper lobe. Follow-up CT of the chest in 12 months is recommended according to Fleischner Society guidelines. 4. No evidence disease involving left hilum and left lower lobe. 5. Cardiomegaly. 6. Tiny pericardial effusion. Venous Doppler Study 02/01/18 15:47 CONCLUSION: 1. The study is negative for lower extremity deep venous thrombosis. Chest X-Ray 02/05/18 06:00 CONCLUSION: Bilateral perihilar airspace disease. No effusion or pneumothorax. - Procedures none Assessment and Plan - Plan 57-year-old female with: Acute hypoxemic and hypercapnic respiratory failure 2/2 acute Severe COPD exacerbation/Probable bilateral pneumonia continue with oxygen/ neb treatment; scheduled and prn, IV steroids to po, IV cefepime and p.o. doxycycline. pulmonary following. patient is on four liters of oxygen at home. BIPAP prn. Needs sleep study for pt to get BIPAP counselled on smoking cessation. 4 mm noncalcified nodule within the right upper lobe -recommended follow-up CT thorax within the next 12 months Hypertension; still not controlled increase lisinopril and Norvasc, continue Coreg with as needed IV Vasotec and clonidine Diabetes mellitus- not well controlled. Continue with increased dose of Levemir and continue with accu-check with SSI- blood sugar levels expected to improve as the steroids being tapered off. DVT prophylaxis with subq Lovenox. continue PT recommends home health care.
--- NOTE | 2018-02-07 11:32 | P.DCO ---
- Physical Therapy Order: Evaluate and treat, Improve ambulation, Strength and gait training - Home Health Nursing Order: Medical education, Oxygen administration education, Medication education- adverse effect, Nursing assessment with vital signs - Certification I have seen patient Sasha Lee on 02/07/18. My clinical findings support the need for the requested home health care services because: Patient has SOB I certify that my clinical findings support that this patient is homebound because: Hx COPD - exertion dyspnea/weakness
[2018-02-07] MEDS: Carvedilol 12.5 MG Tablet PO SCH ×2 (11:36→21:29)
[2018-02-07] MEDS: amLODIPine 10 MG Tablet PO SCH (11:36)
[2018-02-07] MEDS: Furosemide 40 MG Tablet PO SCH (11:37)
[2018-02-07] MEDS: Senna/Docusate Sodium 8.6/50 MG Tablet PO SCH ×2 (11:37→21:29)
[2018-02-07] MEDS: Gabapentin 400 MG Capsule PO SCH ×3 (11:37→17:43)
[2018-02-07] MEDS: Famotidine 20 MG Tablet PO SCH ×2 (11:37→21:31)
[2018-02-07] MEDS: FLUoxetine 10 MG Capsule PO SCH (11:38)
[2018-02-07] MEDS: Insulin Detemir Inj 1,000 UNIT/10 ML Vial SQ SCH ×2 (11:38→21:35)
[2018-02-07] MEDS: Mupirocin 2% Nasal Oint Topical Syringe EACH NARE SCH ×2 (11:39→21:38)
--- NOTE | 2018-02-07 12:57 | P.PN ---
Subjective Interval history: She is awake and seems better. On O2 4 L. No wheezing. needs a sleep test Physical Exam Vital signs: Vital Signs 02/06/18 16:00 02/06/18 20:00 02/07/18 00:00 Temperature 98.8 F 98.2 F 98.2 F Pulse Rate 62 59 L 60 Respiratory Rate 18 22 22 Blood Pressure 167/83 H 176/84 H 185/86 H Pulse Oximetry 93 L 94 L 92 L 02/07/18 08:00 Temperature 98.1 F Pulse Rate 59 L Respiratory Rate 19 Blood Pressure 176/93 H Pulse Oximetry 96 Intake & Output 02/06/18 02/07/18 02/07/18 18:59 06:59 18:59 Intake Total 450 / 450 580 / 580 Balance 450 / 450 580 / 580 Weight 102.7 kg Intake: IV 200 / 200 100 / 100 Maxipime Inj 2,000 MG In NS Inj 100 / 100 100 / 100 100 ML @ 200 mls/hr IV.SIG Q12H [facility]ON[facility] Rx#:[id number] Doxy 100 Inj 100 MG In NS Inj 100 / 100 100 ML @ 100 mls/hr IV.SIG Q12H [facility]ONDA Rx#:[id number] Oral 250 / 250 480 / 480 Other: # Voids 2 Date of Last Bowel Movement 02/05/18 02/05/18 Narrative: GENERAL: Obese female in no acute distress.Face plethoric. CARDIOVASCULAR: Normal rate and regular rhythm without murmurs, gallops, or rubs. RESPIRATORY: Diminished breath sounds bilaterally, occasional wheezing. GASTROINTESTINAL: Abdomen soft, non-tender, non-distended. Normal active bowel sounds MUSCULOSKELETAL: Extremities without cyanosis, or edema. NEURO: Alert & Oriented x4 to person, place, time, situation. Moves all ext x4 PSYCH: Appropriate mood and affect. Results - Labs CBC & Chem 7: 02/07/18 06:03 02/07/18 06:03 Laboratory Results - last 24 hr 02/06/18 02/06/18 02/07/18 16:53 21:32 06:03 WBC 8.3 RBC 5.72 H Hgb 17.0 H Hct 51.7 H MCV 90.4 MCH 29.7 MCHC 32.9 RDW 16.0 Plt Count 228 MPV 8.7 Sodium Potassium Chloride Carbon Dioxide Anion Gap BUN Creatinine Estimated GFR POC Glucose 301 H 237 H Random Glucose Calcium 02/07/18 02/07/18 06:03 08:09 WBC RBC Hgb Hct MCV MCH MCHC RDW Plt Count MPV Sodium 141 Potassium 4.2 Chloride 98 Carbon Dioxide 39.0 H Anion Gap 4 L BUN 25 H Creatinine 0.83 Estimated GFR 71 L POC Glucose 162 H Random Glucose 193 H Calcium 8.8 Microbiology 02/04/18 12:35 Blood - Peripheral Aerobic Blood Culture - Preliminary No growth in 3 days 02/04/18 12:35 Blood - Peripheral Anaerobic Blood Culture - Preliminary No growth in 3 days 02/04/18 12:27 Blood - Peripheral Aerobic Blood Culture - Preliminary No growth in 3 days 02/04/18 12:27 Blood - Peripheral Anaerobic Blood Culture - Preliminary No growth in 3 days 02/04/18 11:00 Sputum - Expectorated Sputum Gram Stain - Final 02/04/18 11:00 Sputum - Expectorated Sputum Sputum Culture - Final Heavy growth normal respiratory nicolás - Procedures none Assessment and Plan - Assessment (1) Respiratory failure Code(s): J96.90 - Respiratory failure, unspecified, unspecified whether with hypoxia or hypercapnia Status: Acute (2) Hypercapnic respiratory failure, chronic Code(s): J96.12 - Chronic respiratory failure with hypercapnia Status: Acute (3) COPD (chronic obstructive pulmonary disease) Code(s): J44.9 - Chronic obstructive pulmonary disease, unspecified Status: Acute (4) CHF (congestive heart failure) Code(s): I50.9 - Heart failure, unspecified Status: Acute (5) Hypertension Code(s): I10 - Essential (primary) hypertension Status: Acute (6) Sleep apnea Code(s): G47.30 - Sleep apnea, unspecified Status: Acute (7) Acute exacerbation of chronic bronchitis Code(s): J20.9 - Acute bronchitis, unspecified; J42 - Unspecified chronic bronchitis Status: Acute - Plan 1. D/C Solumedrol 2.O2 at 5L and wean , keep sat >88 3. BiPAP at HS 8 PM to 8 AM 4. Cont antibiotics as ordered 5. Duoneb nebs qid. 6. Symbicort 160/4.5 mcg , 2 puffs BID 7. Add prednisone 20 mg BID 8. Will order home BiPAP after sleep test set up , upon discharge.
[2018-02-07] MEDS: Budesonide-Formoterol 160/4.5 MCG 6 GM Inhaler INH SCH ×2 (14:25→21:42)
[2018-02-07] MEDS: Montelukast 10 MG Tablet PO SCH (17:41)
[2018-02-07] MEDS: Lisinopril 20 MG Tablet PO SCH ×2 (18:12→21:30)
[2018-02-07] MEDS: MethylPREDNISolone Sod Succinate Inj 40 MG/ML Vial IV.PUSH SCH (18:13)
[2018-02-07] MEDS: Enoxaparin Inj 40 MG/0.4 ML Syringe SQ SCH (21:28)
[2018-02-07] MEDS: predniSONE 20 MG Tablet PO SCH (21:31)
[2018-02-08] MEDS: Carvedilol 12.5 MG Tablet PO SCH (08:25)
[2018-02-08] MEDS: Furosemide 40 MG Tablet PO SCH (08:25)
[2018-02-08] MEDS: Mupirocin 2% Nasal Oint Topical Syringe EACH NARE SCH (08:25)
[2018-02-08] MEDS: amLODIPine 10 MG Tablet PO SCH (08:25)
[2018-02-08] MEDS: Lisinopril 20 MG Tablet PO SCH (08:26)
[2018-02-08] MEDS: Gabapentin 400 MG Capsule PO SCH ×3 (08:26→13:54)
[2018-02-08] MEDS: Famotidine 20 MG Tablet PO SCH (08:26)
[2018-02-08] MEDS: FLUoxetine 10 MG Capsule PO SCH (08:26)
[2018-02-08] MEDS: Senna/Docusate Sodium 8.6/50 MG Tablet PO SCH (08:26)
[2018-02-08] MEDS: predniSONE 20 MG Tablet PO SCH (08:27)
[2018-02-08] MEDS: Insulin Detemir Inj 1,000 UNIT/10 ML Vial SQ SCH (08:27)
--- NOTE | 2018-02-08 09:08 | P.PN ---
Subjective Interval history: At the margin of the bed Appears in nad Requiring O2 No fever or chills No wheezing She is noted non compliant with o2 No cough Physical Exam Vital signs: Vital Signs 02/07/18 12:00 02/07/18 15:46 02/07/18 20:00 Temperature 97.9 F 97.6 F 98.5 F Pulse Rate 71 71 67 Respiratory Rate 19 19 16 Blood Pressure 151/76 H 131/61 119/99 H Pulse Oximetry 90 L 91 L 94 L 02/07/18 21:09 02/08/18 00:00 02/08/18 08:00 Temperature 98.8 F 98.2 F Pulse Rate 66 58 L Respiratory Rate 17 18 Blood Pressure 134/68 186/84 H Pulse Oximetry 97 93 L 93 L Intake & Output 02/07/18 02/08/18 02/08/18 18:59 06:59 18:59 Intake Total 1060 / 1060 800 / 800 100 / 100 Balance 1060 / 1060 800 / 800 100 / 100 Weight 102.7 kg Intake: IV 100 / 100 100 / 100 Maxipime Inj 2,000 MG In NS Inj 100 / 100 100 / 100 100 ML @ 200 mls/hr IV.SIG Q12H [facility]ONDA Rx#:[id number] Oral 960 / 960 800 / 800 Other: # Voids 3 3 Date of Last Bowel Movement 02/07/18 02/07/18 Narrative: GENERAL: Obese female in no acute distress. CARDIOVASCULAR: Normal rate and regular rhythm without murmurs, gallops, or rubs. RESPIRATORY: Diminished breath sounds bilaterally, no wheezing. GASTROINTESTINAL: Abdomen soft, non-tender, non-distended. Normal active bowel sounds MUSCULOSKELETAL: Extremities without cyanosis, or edema. NEURO: Alert & Oriented x4 to person, place, time, situation. Moves all ext x4 PSYCH: Appropriate mood and affect. Results - Labs CBC & Chem 7: 02/07/18 06:03 02/07/18 06:03 Laboratory Results - last 24 hr 02/07/18 02/07/18 02/08/18 14:28 21:28 07:40 POC Glucose 353 H 417 H 148 H Microbiology 02/04/18 12:35 Blood - Peripheral Aerobic Blood Culture - Preliminary No growth in 3 days 02/04/18 12:35 Blood - Peripheral Anaerobic Blood Culture - Preliminary No growth in 3 days 02/04/18 12:27 Blood - Peripheral Aerobic Blood Culture - Preliminary No growth in 3 days 02/04/18 12:27 Blood - Peripheral Anaerobic Blood Culture - Preliminary No growth in 3 days - Procedures none Assessment and Plan - Plan 57-year-old female with: Acute hypoxemic and hypercapnic respiratory failure 2/2 acute Severe COPD exacerbation/Probable bilateral pneumonia continue with oxygen/ neb treatment; scheduled and prn, IV steroids to po, IV cefepime and p.o. doxycycline. pulmonary following. patient is on four liters of oxygen at home. BIPAP prn. Needs sleep study for pt to get BIPAP counselled on smoking cessation. Pulm ff Dr Lewis 4 mm noncalcified nodule within the right upper lobe -recommended follow-up CT thorax within the next 12 months Hypertension- still not controlled increase lisinopril and Norvasc, continue Coreg with as needed IV Vasotec and clonidine Diabetes mellitus- not well controlled. Continue with increased dose of Levemir and continue with accu-check with SSI- blood sugar levels expected to improve as the steroids being tapered off. DVT prophylaxis with subq Lovenox. continue PT recommends home health care. DC home today wit home o2 , to follow up as OP with her pCP and pulm, to have sleep study and Bipap set up as OP
--- NOTE | 2018-02-08 09:27 | P.DS ---
Date of admission: 02/01/18 19:00 Primary care physician: UNKNOWN Brief History from admission: 57yF with history of o2 dependent copd (4LPM continuously, but patient states she doesn't always wear it, only when she feels like she needs it). She presents with 4 weeks of progressive shortness of breath and fatigue. she denies fever, chills. denies new or differing sputum production. she continues to smoke. in the ER was found to be hypoxic, hypercarbic, respiratory acidosis. CTA chest negative for PE. no new symptoms other than her fatigue. ROS negative for chest pain, headache, f/c, cough, sputum production, runny nose, congestion , n/v/c/d/abd pain. she was increasingly somnolent in the ER and was placed on BiPAP with improvement of her symptoms. ROS is otherwise negative unless stated above. DS: Diagnosis - Discharge Diagnosis (1) Respiratory failure Status: Acute (2) Hypercapnic respiratory failure, chronic Status: Acute (3) COPD (chronic obstructive pulmonary disease) Status: Acute (4) CHF (congestive heart failure) Status: Acute (5) Hypertension Status: Acute (6) Sleep apnea Status: Acute (7) Acute exacerbation of chronic bronchitis Status: Acute (8) Bipolar disorder Status: Acute DS: Medications - Discharge Medications Prescriptions: amlodipine [Norvasc] 10 mg PO DAILY #30 tab doxycycline hyclate 100 mg PO Q12HR #8 cap fluoxetine 10 mg PO DAILY #30 cap prednisone 20 mg PO BID #8 tab DS: Summary Hospital Course: 57-year-old female with: Acute hypoxemic and hypercapnic respiratory failure 2/2 acute Severe COPD exacerbation/Probable bilateral pneumonia continue with oxygen/ neb treatment; scheduled and prn, IV steroids to po, IV cefepime and p.o. doxycycline. pulmonary following. patient is on four liters of oxygen at home. BIPAP prn. Needs sleep study for pt to get BIPAP counselled on smoking cessation. Pulm ff Dr Lewis 4 mm noncalcified nodule within the right upper lobe -recommended follow-up CT thorax within the next 12 months Hypertension- still not controlled increase lisinopril and Norvasc, continue Coreg with as needed IV Vasotec and clonidine Diabetes mellitus- not well controlled. Continue with increased dose of Levemir and continue with accu-check with SSI- blood sugar levels expected to improve as the steroids being tapered off. DVT prophylaxis with subq Lovenox. continue PT recommends home health care. DC in stable condition with O2 at DC to have sleep study as OP and Biapap set up as OP Patient to follow up with PCP and consultants as OP - Time Spent with Patient Total time spent providing and/or coordinating discharge services: Greater than 30 minutes - Quality: VTE Deep Vein Thrombosis/Pulmonary Embolism Present on Admission: No Exam Vital signs: Vital Signs 02/07/18 12:00 02/07/18 15:46 02/07/18 20:00 Temperature 97.9 F 97.6 F 98.5 F Pulse Rate 71 71 67 Respiratory Rate 19 19 16 Blood Pressure 151/76 H 131/61 119/99 H Pulse Oximetry 90 L 91 L 94 L 02/07/18 21:09 02/08/18 00:00 02/08/18 08:00 Temperature 98.8 F 98.2 F Pulse Rate 66 58 L Respiratory Rate 17 18 Blood Pressure 134/68 186/84 H Pulse Oximetry 97 93 L 93 L 02/08/18 09:17 Temperature Pulse Rate Respiratory Rate Blood Pressure Pulse Oximetry 91 L Intake & Output 02/07/18 02/08/18 02/08/18 18:59 06:59 18:59 Intake Total 1060 / 1060 800 / 800 100 / 100 Balance 1060 / 1060 800 / 800 100 / 100 Weight 102.7 kg Intake: IV 100 / 100 100 / 100 Maxipime Inj 2,000 MG In NS Inj 100 / 100 100 / 100 100 ML @ 200 mls/hr IV.SIG Q12H RHONDA Rx#:[id number] Oral 960 / 960 800 / 800 Other: # Voids 3 3 Date of Last Bowel Movement 02/07/18 02/07/18 Narrative: GENERAL: Obese female in no acute distress. CARDIOVASCULAR: Normal rate and regular rhythm without murmurs, gallops, or rubs. RESPIRATORY: Diminished breath sounds bilaterally, no wheezing. GASTROINTESTINAL: Abdomen soft, non-tender, non-distended. Normal active bowel sounds MUSCULOSKELETAL: Extremities without cyanosis, or edema. NEURO: Alert & Oriented x4 to person, place, time, situation. Moves all ext x4 PSYCH: Appropriate mood and affect. Results Procedures completed during hospitalization: none Labs on day of discharge: Labs from last 24 hours 02/08/18 02/07/18 02/07/18 07:40 21:28 14:28 POC Glucose 148 H 417 H 353 H Preliminary micro results at discharge 02/04/18 12:35 Aerobic Blood Culture - Preliminary Blood - Peripheral No growth in 3 days Anaerobic Blood Culture - Preliminary No growth in 3 days 02/04/18 12:27 Aerobic Blood Culture - Preliminary Blood - Peripheral No growth in 3 days Anaerobic Blood Culture - Preliminary No growth in 3 days - Impressions ITS Impressions Chest CTA 02/01/18 15:47 CONCLUSION: 1. No evidence of pulmonary embolism. 2. Fibrotic scarring within the left upper lobe. 3. 4 mm noncalcified nodule within the right upper lobe. Follow-up CT of the chest in 12 months is recommended according to Fleischner Society guidelines. 4. No evidence disease involving left hilum and left lower lobe. 5. Cardiomegaly. 6. Tiny pericardial effusion. Venous Doppler Study 02/01/18 15:47 CONCLUSION: 1. The study is negative for lower extremity deep venous thrombosis. Chest X-Ray 02/05/18 06:00 CONCLUSION: Bilateral perihilar airspace disease. No effusion or pneumothorax. Discharge Plan - Discharge Disposition Patient Disposition: Disch W/Home Health Service - Discharge Condition Condition: Stable - Discharge Order Discharge Orders: Discharge Order (Routine); Ordered 02/08/18 Ordered By: Jenni Lange - Physicians Team Primary Care Provider: UNKNOWN, Attending Provider: Jenni Lange Other Providers: Rodolfo Naranjo MD ; Ke Arreguin MD
--- NOTE | 2018-02-08 09:27 | P.DCO ---
- Physical Therapy Order: Evaluate and treat - Home Health Nursing Order: Medical education, Signs/symptoms of disease process, CHF education, Oxygen administration education, Medication education-adverse effect, Nursing assessment with vital signs, Telehealth - Certification I have seen patient Sasha Lee on 02/08/18. My clinical findings support the need for the requested home health care services because: Limited mobility due to disease progression, Patient has SOB I certify that my clinical findings support that this patient is homebound because: Post-op weakness
[2018-02-08] MEDS: Budesonide-Formoterol 160/4.5 MCG 6 GM Inhaler INH SCH (11:00)
--- NOTE | 2018-02-08 13:00 | P.PN ---
Subjective Interval history: She is better and on o2 3 L. Will go home on O2.needs OP sleep study. Physical Exam Vital signs: Vital Signs 02/07/18 15:46 02/07/18 20:00 02/07/18 21:09 Temperature 97.6 F 98.5 F Pulse Rate 71 67 Respiratory Rate 19 16 Blood Pressure 131/61 119/99 H Pulse Oximetry 91 L 94 L 97 Pulse Oximetry [Resting on Room Air] 02/08/18 00:00 02/08/18 08:00 02/08/18 09:17 Temperature 98.8 F 98.2 F Pulse Rate 66 58 L Respiratory Rate 17 18 Blood Pressure 134/68 186/84 H Pulse Oximetry 93 L 93 L 91 L Pulse Oximetry [Resting on Room Air] 02/08/18 09:31 02/08/18 10:33 Temperature Pulse Rate Respiratory Rate Blood Pressure 140/80 Pulse Oximetry Pulse Oximetry [Resting on Room Air] 86 L Intake & Output 02/07/18 02/08/18 02/08/18 18:59 06:59 18:59 Intake Total 1060 / 1060 800 / 800 100 / 100 Balance 1060 / 1060 800 / 800 100 / 100 Weight 102.7 kg Intake: IV 100 / 100 100 / 100 Maxipime Inj 2,000 MG In NS Inj 100 / 100 100 / 100 100 ML @ 200 mls/hr IV.SIG Q12H RHONDA Rx#:[id number] Oral 960 / 960 800 / 800 Other: # Voids 3 3 Date of Last Bowel Movement 02/07/18 02/07/18 Narrative: GENERAL: Obese female in no acute distress. CARDIOVASCULAR: Normal rate and regular rhythm without murmurs, gallops, or rubs. RESPIRATORY: Diminished breath sounds bilaterally, occ wheezing. GASTROINTESTINAL: Abdomen soft, non-tender, non-distended. Normal active bowel sounds MUSCULOSKELETAL: Extremities without cyanosis, or edema. NEURO: Alert & Oriented x4 to person, place, time, situation. Moves all ext x4 PSYCH: Appropriate mood and affect. Results - Labs CBC & Chem 7: 02/07/18 06:03 02/07/18 06:03 Laboratory Results - last 24 hr 02/07/18 02/07/18 02/08/18 14:28 21:28 07:40 POC Glucose 353 H 417 H 148 H 02/08/18 11:29 POC Glucose 202 H Microbiology 02/04/18 12:35 Blood - Peripheral Aerobic Blood Culture - Preliminary No growth in 4 days 02/04/18 12:35 Blood - Peripheral Anaerobic Blood Culture - Preliminary No growth in 4 days 02/04/18 12:27 Blood - Peripheral Aerobic Blood Culture - Preliminary No growth in 4 days 02/04/18 12:27 Blood - Peripheral Anaerobic Blood Culture - Preliminary No growth in 4 days - Procedures none Assessment and Plan - Assessment (1) Respiratory failure Code(s): J96.90 - Respiratory failure, unspecified, unspecified whether with hypoxia or hypercapnia Status: Acute (2) Hypercapnic respiratory failure, chronic Code(s): J96.12 - Chronic respiratory failure with hypercapnia Status: Acute (3) COPD (chronic obstructive pulmonary disease) Code(s): J44.9 - Chronic obstructive pulmonary disease, unspecified Status: Acute (4) CHF (congestive heart failure) Code(s): I50.9 - Heart failure, unspecified Status: Acute (5) Hypertension Code(s): I10 - Essential (primary) hypertension Status: Acute (6) Sleep apnea Code(s): G47.30 - Sleep apnea, unspecified Status: Acute (7) Acute exacerbation of chronic bronchitis Code(s): J20.9 - Acute bronchitis, unspecified; J42 - Unspecified chronic bronchitis Status: Acute - Plan 1. Home today 2.O2 at 3 L N/C 3. Sleep test as OP 4. Cont antibiotics po for 5 days 5. Duoneb nebs tid. 6. Symbicort 160/4.5 mcg , 2 puffs BID 7. Taper prednisone over 3 weeks 8. Will order home BiPAP after sleep test set up , upon discharge.
== END 2018-02-08 14:32 | disposition home health service (06) ==
LOC: NEPD 15:09 → NEDA 19:00 → HIMC 21:25 → N07 02-06 15:35
PROVIDERS: ADMIT Hospitalist; ATTEND Hospitalist